=== PATIENT | female | born 1970 | race American Indian/Alaskan Native ===

== ENCOUNTER 2018-04-21 13:54 | Emergency (ER) | payer OTHER ==
[2018-04-21] MEDS ORDERED: CATAPRES PO ONE (16:49)
[2018-04-21] MEDS ORDERED: TORADOL IM ONE (16:49)
--- NOTE | 2018-04-21 16:54 | Emergency Department Report ---
ED General Adult HPI - General Chief complaint: Headache Stated complaint: HEADACHE AND NAUSEA FOR 3 DAYS Time Seen by Provider: 04/21/18 16:44 Source: patient Mode of arrival: Ambulatory Limitations: No Limitations - History of Present Illness Initial comments: Patient is a 47-year-old black female said some headache with some mild photophobia and mild nausea for the past 3 days. Patient states she has a history of hypertension and taken her blood pressure medicines as prescribed however blood pressure has been running high. Patient patient takes metoprolol losartan amlodipine. Patient denies any chest pain shortness of breath fevers chills at this time. Patient denies any focal neurological deficit. - Related Data Previous Rx's Medication Instructions Recorded Last Taken Type Amlodipine Besylate [Norvasc] 10 mg PO DAILY #30 tablet 04/21/18 Unknown Rx Losartan [Cozaar] 25 mg PO QDAY #30 tablet 04/21/18 Unknown Rx Metoprolol [Lopressor TAB] 50 mg PO BID #60 tablet 04/21/18 Unknown Rx traMADol [Ultram] 50 mg PO Q6HR PRN #10 tablet 04/21/18 Unknown Rx Allergies Allergy/AdvReac Type Severity Reaction Status Date / Time No Known Allergies Allergy Verified 04/21/18 14:13 ED Review of Systems ROS: Stated complaint: HEADACHE AND NAUSEA FOR 3 DAYS Other details as noted in HPI Comment: All other systems reviewed and negative ED Past Medical Hx - Past Medical History Previous Medical History?: Yes Hx Hypertension: Yes - Surgical History Past Surgical History?: Yes Additional Surgical History: right ovary - Social History Smoking Status: Current Every Day Smoker Substance Use Type: None - Medications Home Medications: Home Medications Medication Instructions Recorded Confirmed Last Taken Type Amlodipine Besylate [Norvasc] 10 mg PO DAILY #30 tablet 04/21/18 Unknown Rx Losartan [Cozaar] 25 mg PO QDAY #30 tablet 04/21/18 Unknown Rx Metoprolol [Lopressor TAB] 50 mg PO BID #60 tablet 04/21/18 Unknown Rx traMADol [Ultram] 50 mg PO Q6HR PRN #10 tablet 04/21/18 Unknown Rx ED Physical Exam - General Limitations: No Limitations General appearance: alert, in no apparent distress - Head Head exam: Present: atraumatic, normocephalic - Eye Eye exam: Present: normal appearance - ENT ENT exam: Present: mucous membranes moist - Neck Neck exam: Present: normal inspection - Respiratory Respiratory exam: Present: normal lung sounds bilaterally. Absent: respiratory distress, wheezes, rales, rhonchi - Cardiovascular Cardiovascular Exam: Present: regular rate, normal rhythm. Absent: systolic murmur, diastolic murmur, rubs, gallop - GI/Abdominal GI/Abdominal exam: Present: soft, normal bowel sounds. Absent: distended, tenderness, guarding, rebound - Extremities Exam Extremities exam: Present: normal inspection - Back Exam Back exam: Present: normal inspection - Neurological Exam Neurological exam: Present: alert, oriented X3, CN II-XII intact, normal gait. Absent: motor sensory deficit - Psychiatric Psychiatric exam: Present: normal affect, normal mood - Skin Skin exam: Present: warm, dry, intact, normal color. Absent: rash ED Course Vital Signs 04/21/18 14:11 Temperature 98.3 F Pulse Rate 95 H Respiratory 18 Rate Blood Pressure 196/93 O2 Sat by Pulse 98 Oximetry ED Medical Decision Making - Medical Decision Making Patient is on 5 mg of amlodipine this be increased to 10 mg and the patient's losartan will be increased from 12.5 to 25 mg. Critical care attestation.: If time is entered above; I have spent that time in minutes in the direct care of this critically ill patient, excluding procedure time. ED Disposition Clinical Impression: Hypertensive urgency Disposition: DC-01 TO HOME OR SELFCARE Is pt being admited?: No Does the pt Need Aspirin: No Condition: Stable Instructions: Hypertension (ED) Referrals: SONNY ALONSO MD [Staff Physician] - 3-5 Days
[2018-04-21 17:32] VITALS: BP 182/78
== END 2018-04-21 17:31 | disposition home or self-care (01) ==
LOC: ED 13:54
DX: I10 Essential (primary) hypertension (principal); F17.200 Nicotine dependence, unspecified, uncomplicated
CPT/HCPCS: 96372; 99282; J1885

== ENCOUNTER 2018-05-29 16:50 | Emergency (ER) | payer OTHER ==
[2018-05-29 17:16] VITALS: BP 210/100
[2018-05-29] MEDS ORDERED: DUONEB *Not for PRN Use IH ONE (17:17)
--- NOTE | 2018-05-29 18:56 | XRay Report ---
FINAL REPORT PROCEDURE: XR CHEST ROUTINE 2V TECHNIQUE: PA and lateral chest radiographs were obtained. CPT 76976 HISTORY: chest congestion bx tx COMPARISON: No prior studies are available for comparison. FINDINGS: Heart: Normal. Mediastinum/Vessels: Normal. Lungs/Pleural space: No infiltrate, effusion, or pneumothorax. Bony thorax: No acute osseous abnormality. Other: IMPRESSION: No pulmonary infiltrates.
[2018-05-29] MEDS ORDERED: DECADRON IM ONE (19:50)
[2018-05-29] MEDS ORDERED: MOTRIN PO ONE (19:50)
[2018-05-29] MEDS ORDERED: PROVENTIL IH ONE (19:50)
--- NOTE | 2018-05-29 19:56 | Emergency Department Report ---
Upper Respiratory HPI - HPI Chief Complaint: Upper Respiratory Infection Stated Complaint: SEVERE COLD/CHEST PAIN/WHEEZING/HEADACHE Time Seen by Provider: 05/29/18 19:49 Duration: 5 Days URI Symptoms: Rhinorrhea: Yes, Sore Throat: Yes, Ear Pain: No, Cough: Yes, Shortness of Breath: Yes, Sick Contacts: Yes, Unable to Take Fluids: No, Urine Output Abnormal: No, Listless Behavior: No - Home Meds and Allergies Home Medications: Previous Rx's Medication Instructions Recorded Last Taken Type Amlodipine Besylate [Norvasc] 10 mg PO DAILY #30 tablet 04/21/18 Unknown Rx Losartan [Cozaar] 25 mg PO QDAY #30 tablet 04/21/18 Unknown Rx Metoprolol [Lopressor TAB] 50 mg PO BID #60 tablet 04/21/18 Unknown Rx traMADol [Ultram] 50 mg PO Q6HR PRN #10 tablet 04/21/18 Unknown Rx ALBUTEROL Inhaler(NF) [VENTOLIN 1 puff IH Q4-6H PRN #1 inha 05/29/18 Unknown Rx Inhaler(NF)] Azithromycin 250 mg PO DAILY #6 tablet 05/29/18 Unknown Rx Codeine Phosphate/Guaifenesin 5 ml PO TID PRN #120 ml 05/29/18 Unknown Rx [Guaifenesin-Codeine Syrup] Dexamethasone [Decadron] 4 mg PO Q12H #4 tablet 05/29/18 Unknown Rx Ibuprofen 800 mg PO TID PRN #30 tablet 05/29/18 Unknown Rx Allergies/Adverse Reactions: Allergies Allergy/AdvReac Type Severity Reaction Status Date / Time No Known Allergies Allergy Verified 04/21/18 14:13 ED Review of Systems ROS: Stated complaint: SEVERE COLD/CHEST PAIN/WHEEZING/HEADACHE Other details as noted in HPI Constitutional: fever Eyes: denies: eye pain, eye discharge, vision change ENT: throat pain, congestion Respiratory: cough, shortness of breath, wheezing Cardiovascular: denies: chest pain, palpitations Endocrine: no symptoms reported Gastrointestinal: denies: abdominal pain, nausea, diarrhea Genitourinary: as per HPI Musculoskeletal: denies: back pain, joint swelling, arthralgia Skin: denies: rash, lesions Neurological: denies: headache, weakness, paresthesias Psychiatric: denies: anxiety, depression Hematological/Lymphatic: denies: easy bleeding, easy bruising ED Past Medical Hx - Past Medical History Previous Medical History?: Yes Hx Hypertension: Yes - Surgical History Past Surgical History?: Yes Additional Surgical History: right ovary - Social History Smoking Status: Current Every Day Smoker Substance Use Type: None - Medications Home Medications: Home Medications Medication Instructions Recorded Confirmed Last Taken Type Amlodipine Besylate [Norvasc] 10 mg PO DAILY #30 tablet 04/21/18 Unknown Rx Losartan [Cozaar] 25 mg PO QDAY #30 tablet 04/21/18 Unknown Rx Metoprolol [Lopressor TAB] 50 mg PO BID #60 tablet 04/21/18 Unknown Rx traMADol [Ultram] 50 mg PO Q6HR PRN #10 tablet 04/21/18 Unknown Rx ALBUTEROL Inhaler(NF) [VENTOLIN 1 puff IH Q4-6H PRN #1 inha 05/29/18 Unknown Rx Inhaler(NF)] Azithromycin 250 mg PO DAILY #6 tablet 05/29/18 Unknown Rx Codeine Phosphate/Guaifenesin 5 ml PO TID PRN #120 ml 05/29/18 Unknown Rx [Guaifenesin-Codeine Syrup] Dexamethasone [Decadron] 4 mg PO Q12H #4 tablet 05/29/18 Unknown Rx Ibuprofen 800 mg PO TID PRN #30 tablet 05/29/18 Unknown Rx ED Bronchiolitis Physical Exam - Exam General: Vital signs noted. No distress. Alert and acting appropriately. HEENT: Yes Pharyngeal Erythema, Yes Rhinorrhea, No Conjuctival Injection, No Dry Mucous Membranes Ear: Neither TM Bulge, Neither TM Erythema, Neither EAC Discharge Neck: No Adenopathy, No Rigidity Lungs: Yes Good Air Exchange, Yes Wheezes, Yes Cough, No Clear Lung Sounds, No Stridor, No Nasal Flaring, No Retractions, No Use of Accessory Muscles Heart: Yes Regular, No Murmur Abdomen: Yes Normal Bowel Sounds, No Tenderness, No Peritoneal Signs Skin: No Rash, No Eczema Neurologic: Alert and oriented, no deficits. Musculoskeletal: Unremarkable. ED Bronchiolitis Tests - Testing Testing: CXR: Normal/Negative Treatments - Treaments Treatment: Improved Albuterol (decadron) ED Physical Exam - General Limitations: No Limitations General appearance: alert, in no apparent distress - Head Head exam: Present: atraumatic, normocephalic - Eye Eye exam: Present: normal appearance - ENT ENT exam: Present: normal exam, mucous membranes moist, TM's normal bilaterally , normal external ear exam - Neck Neck exam: Present: normal inspection, full ROM. Absent: tenderness, lymphadenopathy, thyromegaly - Respiratory Respiratory exam: Present: wheezes, chest wall tenderness. Absent: stridor - Cardiovascular Cardiovascular Exam: Present: regular rate, normal rhythm, normal heart sounds. Absent: systolic murmur, diastolic murmur, rubs, gallop - GI/Abdominal GI/Abdominal exam: Present: soft, normal bowel sounds. Absent: tenderness, bruit, hernia - Rectal Rectal exam: Present: deferred - Extremities Exam Extremities exam: Present: normal inspection - Back Exam Back exam: Present: normal inspection, full ROM. Absent: tenderness, CVA tenderness (R), CVA tenderness (L), muscle spasm, paraspinal tenderness, vertebral tenderness, rash noted - Neurological Exam Neurological exam: Present: alert, oriented X3, normal gait - Psychiatric Psychiatric exam: Present: normal affect, normal mood - Skin Skin exam: Present: warm, dry, intact, normal color. Absent: rash ED Course Vital Signs 05/29/18 17:13 Temperature 98.9 F Pulse Rate 95 H Respiratory 16 Rate Blood Pressure 210/100 O2 Sat by Pulse 94 Oximetry - Reevaluation(s) Reevaluation #1: Patient advises breathing is improved when ambulating ED if no increased shortness of breath no increase in wheezing DC to home in stable condition treated for bronchitis 05/29/18 20:16 ED Medical Decision Making - Radiology Data Radiology results: report reviewed, image reviewed No infiltrates no opacities - Medical Decision Making Breathing improved patient request and DC'd home patient ambulated in ED without increased shortness of breath wheezing is decreased plan DC to home in stable condition at this time due to all inhaler prednisone CPAP follow up with PCP in 2-3 days at [facility] patient verbalizes agreement and understanding with signs DC'd to home in stable condition at this time patient has hypertension medicines including amlodipine losartan and metoprolol advised to take them upon arrival to home patient verbalizes agreement same is currently no headache no dizziness no lightheadedness and no chest pain no nausea vomiting patient is a and O 3 and rheumatoid gait is steady Critical care attestation.: If time is entered above; I have spent that time in minutes in the direct care of this critically ill patient, excluding procedure time. ED Disposition Clinical Impression: Bronchitis URI (upper respiratory infection) Qualifiers: URI type: unspecified viral URI Qualified Code(s): J06.9 - Acute upper respiratory infection, unspecified Disposition: DC- TO HOME OR SELFCARE Is pt being admited?: No Does the pt Need Aspirin: No Condition: Good Instructions: Acute Bronchitis (ED) Prescriptions: ALBUTEROL Inhaler(NF) [VENTOLIN Inhaler(NF)] 1 puff IH Q4-6H PRN #1 inha PRN Reason: sob wheezing Azithromycin 250 mg PO DAILY #6 tablet Codeine Phosphate/Guaifenesin [Guaifenesin-Codeine Syrup] 5 ml PO TID PRN #120 ml PRN Reason: cough Dexamethasone [Decadron] 4 mg PO Q12H #4 tablet Ibuprofen 800 mg PO TID PRN #30 tablet PRN Reason: pain fever Referrals: PRIMARY CARE, [Primary Care Provider] - 3-5 Days [facility] [Outside] - 3-5 Days Forms: Work/School Release Form(ED) Time of Disposition: 21:06
== END 2018-05-29 21:21 | disposition home or self-care (01) ==
LOC: ED 16:50
DX: J40 Bronchitis, not specified as acute or chronic (principal); J06.9 Acute upper respiratory infection, unspecified; I10 Essential (primary) hypertension; F17.200 Nicotine dependence, unspecified, uncomplicated
CPT/HCPCS: 71046; 93005; 93010; 96372; 99283; J1100

== ENCOUNTER 2018-06-12 13:16 | Emergency (ER) | payer OTHER ==
[2018-06-12] MEDS ORDERED: MOTRIN PO ONE (18:04)
[2018-06-12] MEDS ORDERED: XYLOCAINE 1% 20 mL INFILTRATI ONE (18:04)
[2018-06-12] MEDS ORDERED: BOOSTRIX IM ONE (18:04)
--- NOTE | 2018-06-12 18:25 | Emergency Department Report ---
ED Laceration HPI - HPI Chief Complaint: Wound/Laceration Stated Complaint: CUT HAND W/ [employer] Time Seen by Provider: 06/12/18 17:31 Occurred When: Today Location: Upper Extremity Severity: mild Tetanus Status: Not up to Date Laceration Symptoms: Yes Pain, No Foreign Body Sensation, No Numbness, No Weakness Other History: This is a 47-year-old female nontoxic, well nourished in appearance, no acute signs of distress presents to the ED with c/o of left hand laceration that occurred today. 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 Patient denies any other trauma. Patient denies any decreased range of motion, sensation, fever, chills, nausea, vomiting, chest pain, shots of breath, headache or stiff neck. Patient denies any allergies or significant past medical history besides HTN. She is not up-to-date with tetanus. ED Review of Systems ROS: Stated complaint: CUT HAND W/ [employer] Other details as noted in HPI Constitutional: denies: chills, fever Eyes: denies: eye pain, eye discharge, vision change ENT: denies: ear pain, throat pain Respiratory: denies: cough, shortness of breath, wheezing Cardiovascular: denies: chest pain, palpitations Endocrine: no symptoms reported Gastrointestinal: denies: abdominal pain, nausea, diarrhea Genitourinary: denies: urgency, dysuria, discharge Musculoskeletal: denies: back pain, joint swelling, arthralgia Skin: denies: rash, lesions Neurological: denies: headache, weakness, paresthesias Psychiatric: denies: anxiety, depression Hematological/Lymphatic: denies: easy bleeding, easy bruising ED Past Medical Hx - Past Medical History Previous Medical History?: Yes Hx Hypertension: Yes - Surgical History Past Surgical History?: Yes Additional Surgical History: right ovary - Social History Smoking Status: Current Every Day Smoker Substance Use Type: None - Medications Home Medications: Home Medications Medication Instructions Recorded Confirmed Last Taken Type Amlodipine Besylate [Norvasc] 10 mg PO DAILY #30 tablet 04/21/18 Unknown Rx Losartan [Cozaar] 25 mg PO QDAY #30 tablet 04/21/18 Unknown Rx Metoprolol [Lopressor TAB] 50 mg PO BID #60 tablet 04/21/18 Unknown Rx traMADol [Ultram] 50 mg PO Q6HR PRN #10 tablet 04/21/18 Unknown Rx ALBUTEROL Inhaler(NF) [VENTOLIN 1 puff IH Q4-6H PRN #1 inha 05/29/18 Unknown Rx Inhaler(NF)] Azithromycin 250 mg PO DAILY #6 tablet 05/29/18 Unknown Rx Codeine Phosphate/Guaifenesin 5 ml PO TID PRN #120 ml 05/29/18 Unknown Rx [Guaifenesin-Codeine Syrup] Dexamethasone [Decadron] 4 mg PO Q12H #4 tablet 05/29/18 Unknown Rx Ibuprofen 800 mg PO TID PRN #30 tablet 05/29/18 Unknown Rx Acetaminophen/Codeine [Tylenol 1 tab PO Q6H PRN #12 tab 06/12/18 Unknown Rx /Codeine # 3 tab] Sulfamethoxazole/Trimethoprim 1 each PO BID #14 tablet 06/12/18 Unknown Rx [Bactrim DS TAB] Laceration Physical Exam - Exam General: Vital signs noted. No distress. Alert and acting appropriately. Wound Length (cm): 2 Laceration Location: Upper Extremity Laceration Exam: Yes Normal Distal CMS, No Foreign Body, No Exposed Tendon, Vessel, or Nerve, No Tendon Injury ED Course Vital Signs 06/12/18 13:34 Temperature 99.2 F Pulse Rate 105 H Respiratory 18 Rate Blood Pressure 156/81 O2 Sat by Pulse 96 Oximetry - Reevaluation(s) Reevaluation #1: 06/12/18 18:24 Patient is speaking in full sentences with no signs of distress noted. - Laceration /Wound Repair Left Hand Wound Location: upper extremity Wound Length (cm): 2 Wound's Depth, Shape: superficial Wound Explored: clean Irrigated w/ Saline (ccs): 40 Betadine Prep?: Yes Anesthesia: 1% Lidocaine (6) Volume Anesthetic (ccs): 6 Wound Debrided: minimal Wound Repaired With: sutures Suture Size/Type: 4:0, nylon Number of Sutures: 6 Layer Closure?: No Sterile Dressing Applied?: Yes Progress: Under sterile field, I used Betadine to clean the area. I then used 40 mL of normal saline to flush the area. I then used 1% lidocaine plain and injected 6 mL to the wound. I then used a 4-0 Ethilon to suture the laceration. Number of stitches 6. I then applied a sterile 4 x 4 with tape. Minimal bleeding noted but is under control. Patient tolerated procedure well with no signs of distress. ED Medical Decision Making - Medical Decision Making This is a 47-year-old female that presents with laceration. Patient is stable and was examined by me. The laceration suturing has been performed and has been performed and patient tolerated well. A sterile dressing has been applied. Patient was educated on proper wound care. Patient is discharged with Bactrim and Tylenol with codeine and was instructed not to operate any machinery while taking Tylenol with codeine due to drowsiness. Patient was instructed to return in 10 days for suture removal. Patient was instructed to refer to Follow-up with a primary care doctor in 3-5 days or if symptoms worsen and continue return to emergency room as soon as possible. At time of discharge , the patient does not seem toxic or ill in appearance. No acute signs of distress noted. Patient agrees to discharge treatment plan of care. No further questions noted by the patient. Critical care attestation.: If time is entered above; I have spent that time in minutes in the direct care of this critically ill patient, excluding procedure time. ED Disposition Clinical Impression: Laceration Disposition: DC-01 TO HOME OR SELFCARE Is pt being admited?: No Does the pt Need Aspirin: No Condition: Stable Instructions: Sulfamethoxazole/Trimethoprim (By mouth), Acetaminophen/Codeine ( By mouth), Suture Care (ED), Laceration (ED) Additional Instructions: Follow-up with a primary care doctor in 3-5 days or if symptoms worsen and continue return to emergency room as soon as possible. Return in 10 days for suture removal. Do not operate any machinery while taking Tylenol with codeine as this may cause drowsiness. Prescriptions: Acetaminophen/Codeine [Tylenol /Codeine # 3 tab] 1 tab PO Q6H PRN #12 tab PRN Reason: Pain , Severe (7-10) Sulfamethoxazole/Trimethoprim [Bactrim DS TAB] 1 each PO BID #14 tablet Referrals: PRIMARY CAREMD [Primary Care Provider] - 3-5 Days SURAJ NAZARIO MD [Staff Physician] - 3-5 Days [facility] [Outside] - 3-5 Days [facility] [Outside] - 3-5 Days Forms: Work/School Release Form(ED)
[2018-06-12 19:47] VITALS: BP 122/68
== END 2018-06-12 19:45 | disposition home or self-care (01) ==
LOC: ED 13:16
DX: S61.412A Laceration without foreign body of left hand, initial encounter (principal); I10 Essential (primary) hypertension; F17.200 Nicotine dependence, unspecified, uncomplicated; W26.8XXA Contact with other sharp object(s), not elsewhere classified, initial encounter; Y93.89 Activity, other specified; Y92.89 Other specified places as the place of occurrence of the external cause; Y99.8 Other external cause status
CPT/HCPCS: 90471; 90715; 99282

== ENCOUNTER 2018-10-12 12:33 | Emergency (ER) | payer OTHER ==
[2018-10-12 12:43] VITALS: BP 175/86
[2018-10-12] MEDS ORDERED: IBUPROFEN PO ONE (12:56)
--- NOTE | 2018-10-12 12:57 | Emergency Department Report ---
ED Upper Extremity Inj HPI - General Chief Complaint: Extremity Injury, Upper Stated Complaint: LEFT WRIST INJURY Time Seen by Provider: 10/12/18 12:52 Source: patient Mode of arrival: Ambulatory Limitations: No Limitations - History of Present Illness Initial Comments: This is a 48-year-old female nontoxic, well nourished in appearance, no acute signs of distress presents to the ED with c/o of left wrist pain 2 days. Patient stated that she went out 2 days ago for her birthday and has been drinking and does not know how she injured it. Patient denies any other trauma. Patient denies any numbness, tingling, fever, chills, nausea, vomiting, chest pain, shortness of breath, headache, stiff neck. Patient denies any joint swelling or joint redness. Patient has some decreased range of motion due to pain. Patient denies any allergies or significant past medical history. MD Complaint: Injury to:: left, wrist -: days(s) (2) Other Extremity Injury: Wrist: Left Other Injuries: none Place: outdoors Severity scale (0 -10): 8 Improves With: immobilization Worsens With: movement of extremity Associated Symptoms: denies other symptoms. denies: weakness, numbness, neck pain, suspects foreign body, nausea/vomiting, heard/felt popping sensat - Related Data Previous Rx's Medication Instructions Recorded Last Taken Type Amlodipine Besylate [Norvasc] 10 mg PO DAILY #30 tablet 04/21/18 Unknown Rx Losartan [Cozaar] 25 mg PO QDAY #30 tablet 04/21/18 Unknown Rx Metoprolol [Lopressor TAB] 50 mg PO BID #60 tablet 04/21/18 Unknown Rx traMADol [Ultram] 50 mg PO Q6HR PRN #10 tablet 04/21/18 Unknown Rx ALBUTEROL Inhaler(NF) [VENTOLIN 1 puff IH Q4-6H PRN #1 inha 05/29/18 Unknown Rx Inhaler(NF)] Azithromycin 250 mg PO DAILY #6 tablet 05/29/18 Unknown Rx Codeine Phosphate/Guaifenesin 5 ml PO TID PRN #120 ml 05/29/18 Unknown Rx [Guaifenesin-Codeine Syrup] Dexamethasone [Decadron] 4 mg PO Q12H #4 tablet 05/29/18 Unknown Rx Ibuprofen 800 mg PO TID PRN #30 tablet 05/29/18 Unknown Rx Acetaminophen/Codeine [Tylenol 1 tab PO Q6H PRN #12 tab 06/12/18 Unknown Rx /Codeine # 3 tab] Sulfamethoxazole/Trimethoprim 1 each PO BID #14 tablet 06/12/18 Unknown Rx [Bactrim DS TAB] Ciprofloxacin HCl [Ciprofloxacin 500 mg PO Q12H 10 Days #20 tab 09/06/18 Unknown Rx TAB] Dicyclomine [Bentyl] 40 mg PO Q8H 3 Days #9 tablet 09/06/18 Unknown Rx Promethazine [Phenergan TAB] 25 mg PO Q6HR PRN #12 tab 09/06/18 Unknown Rx Nitrofurantoin Macrocrystal 100 mg PO BID #20 capsule 09/20/18 Unknown Rx [Nitrofurantoin] Ondansetron [Zofran Odt] 4 mg PO Q8HR PRN #20 tab.rapdis 09/20/18 Unknown Rx Pantoprazole Sodium [Protonix] 40 mg PO DAILY #30 granpkt. 09/20/18 Unknown Rx Ibuprofen [Motrin] 600 mg PO Q8H PRN #20 tablet 10/12/18 Unknown Rx Allergies Allergy/AdvReac Type Severity Reaction Status Date / Time No Known Allergies Allergy Verified 04/21/18 14:13 ED Review of Systems ROS: Stated complaint: LEFT WRIST INJURY Other details as noted in HPI Constitutional: denies: chills, fever Eyes: denies: eye pain, eye discharge, vision change ENT: denies: ear pain, throat pain Respiratory: denies: cough, shortness of breath, wheezing Cardiovascular: denies: chest pain, palpitations Endocrine: no symptoms reported Gastrointestinal: denies: abdominal pain, nausea, diarrhea Genitourinary: denies: urgency, dysuria, discharge Musculoskeletal: arthralgia. denies: back pain, joint swelling Skin: denies: rash, lesions Neurological: denies: headache, weakness, paresthesias Psychiatric: denies: anxiety, depression Hematological/Lymphatic: denies: easy bleeding, easy bruising ED Past Medical Hx - Past Medical History Hx Hypertension: Yes - Surgical History Additional Surgical History: right ovary - Social History Smoking Status: Current Every Day Smoker Substance Use Type: Alcohol - Medications Home Medications: Home Medications Medication Instructions Recorded Confirmed Last Taken Type Amlodipine Besylate [Norvasc] 10 mg PO DAILY #30 tablet 04/21/18 Unknown Rx Losartan [Cozaar] 25 mg PO QDAY #30 tablet 04/21/18 Unknown Rx Metoprolol [Lopressor TAB] 50 mg PO BID #60 tablet 04/21/18 Unknown Rx traMADol [Ultram] 50 mg PO Q6HR PRN #10 tablet 04/21/18 Unknown Rx ALBUTEROL Inhaler(NF) [VENTOLIN 1 puff IH Q4-6H PRN #1 inha 05/29/18 Unknown Rx Inhaler(NF)] Azithromycin 250 mg PO DAILY #6 tablet 05/29/18 Unknown Rx Codeine Phosphate/Guaifenesin 5 ml PO TID PRN #120 ml 05/29/18 Unknown Rx [Guaifenesin-Codeine Syrup] Dexamethasone [Decadron] 4 mg PO Q12H #4 tablet 05/29/18 Unknown Rx Ibuprofen 800 mg PO TID PRN #30 tablet 05/29/18 Unknown Rx Acetaminophen/Codeine [Tylenol 1 tab PO Q6H PRN #12 tab 06/12/18 Unknown Rx /Codeine # 3 tab] Sulfamethoxazole/Trimethoprim 1 each PO BID #14 tablet 06/12/18 Unknown Rx [Bactrim DS TAB] Ciprofloxacin HCl [Ciprofloxacin 500 mg PO Q12H 10 Days #20 tab 09/06/18 Unknown Rx TAB] Dicyclomine [Bentyl] 40 mg PO Q8H 3 Days #9 tablet 09/06/18 Unknown Rx Promethazine [Phenergan TAB] 25 mg PO Q6HR PRN #12 tab 09/06/18 Unknown Rx Nitrofurantoin Macrocrystal 100 mg PO BID #20 capsule 09/20/18 Unknown Rx [Nitrofurantoin] Ondansetron [Zofran Odt] 4 mg PO Q8HR PRN #20 tab.rapdis 09/20/18 Unknown Rx Pantoprazole Sodium [Protonix] 40 mg PO DAILY #30 09/20/18 Unknown Rx Ibuprofen [Motrin] 600 mg PO Q8H PRN #20 tablet 10/12/18 Unknown Rx ED Physical Exam - General Limitations: No Limitations General appearance: alert, in no apparent distress - Head Head exam: Present: atraumatic, normocephalic - Eye Eye exam: Present: normal appearance - Neck Neck exam: Present: normal inspection, full ROM - Extremities Exam Extremities exam: Present: normal inspection, full ROM, tenderness, normal capillary refill. Absent: joint swelling - Expanded Upper Extremity Exam Left General: Present: normal inspection Shoulder Exam: Present: normal inspection, full ROM. Absent: tenderness Upper Arm exam: Present: normal inspection, full ROM. Absent: tenderness Elbow exam: Present: normal inspection, full ROM. Absent: tenderness Forearm Wrist exam: Present: normal inspection, full ROM. Absent: tenderness, swelling, abrasion, laceration, ecchymosis, deformity, crepidus, dislocation, erythema, tenderness over anatomical snuff box, pain with axial thumb loading Hand Wrist exam: Present: normal inspection, full ROM, tenderness. Absent: swe lling, abrasion, laceration, ecchymosis, deformity, crepidus, dislocation, erythema, amputation, nail avulsion, subungual hematoma Vascular: Present: vascular compromise, normal capillary refill - Back Exam Back exam: Present: normal inspection, full ROM - Neurological Exam Neurological exam: Present: alert, oriented X3 - Psychiatric Psychiatric exam: Present: normal affect, normal mood - Skin Skin exam: Present: warm, dry, intact, normal color. Absent: rash ED Course Vital Signs 10/12/18 12:38 Temperature 98.6 F Pulse Rate 89 Respiratory 18 Rate Blood Pressure 175/86 O2 Sat by Pulse 100 Oximetry - Reevaluation(s) Reevaluation #1: 10/12/18 13:26 Patient is speaking in full sentences with no signs of distress noted. ED Medical Decision Making - Medical Decision Making This is a 48-year-old female that presents with left wrist strain. Patient is stable and was examined by me. I referred patient to an orthopedic doctor for further evaluation for possible MRI. X-ray has been obtained and dictated by the radiologist. Patient is notified of the x-ray report with noted by the patient. Patient does have normal ROM with some pain and no joint swelling. No ecchymosis. no joint redness or swelling. Not warm to touch. No signs of cellulites present. Patient received a wrist immobilize. Patient was instructed to RICE therapy. Patient received Motrin for pain. Patient is discharged with Motrin. At time of discharge, the patient does not seem toxic or ill in appearance. No acute signs of distress noted. Patient agrees to discharge treatment plan of care. No further questions noted by the patient. Critical care attestation.: If time is entered above; I have spent that time in minutes in the direct care of this critically ill patient, excluding procedure time. ED Disposition Clinical Impression: Strain of left wrist Qualifiers: Encounter type: initial encounter Qualified Code(s): S66.912A - Strain of unspecified muscle, fascia and tendon at wrist and hand level, left hand, initial encounter Disposition: TO HOME OR SELFCARE Is pt being admited?: No Does the pt Need Aspirin: No Condition: Stable Instructions: Wrist Injury (ED), RICE Therapy (ED) Additional Instructions: Follow-up with a orthopedic doctor in 3-5 days or if symptoms worsen and continue return to emergency room as soon as possible. Prescriptions: Ibuprofen [Motrin] 600 mg PO Q8H PRN #20 tablet PRN Reason: Pain Referrals: PRIMARY CAREMD [Referring] - 3-5 Days ROMAN CHAVARRIA MD [Staff Physician] - 3-5 Days [facility] [Outside] - 3-5 Days Forms: Work/School Release Form(ED)
--- NOTE | 2018-10-12 14:12 | XRay Report ---
FINAL REPORT EXAM: XR WRIST 3+V LT HISTORY: wrist pain COMPARISON: None. TECHNIQUE: Three views of the left wrist FINDINGS: There is normal alignment without acute fracture or dislocation. The joint spaces are preserved. The overlying soft tissues are intact. IMPRESSION: No acute bony abnormality of the left wrist.
== END 2018-10-12 14:51 | disposition home or self-care (01) ==
LOC: ED 12:33
DX: S66.912A Strain of unspecified muscle, fascia and tendon at wrist and hand level, left hand, initial encounter (principal); I10 Essential (primary) hypertension; F17.200 Nicotine dependence, unspecified, uncomplicated; X58.XXXA Exposure to other specified factors, initial encounter; Y93.89 Activity, other specified; Y92.488 Other paved roadways as the place of occurrence of the external cause; Y99.8 Other external cause status

== ENCOUNTER 2018-12-01 09:53 | Emergency (ER) | payer OTHER ==
[2018-12-01 11:12] LABS: Hematocrit 33.6 % (30.3-42.9); Hemoglobin 10.6 gm/dl (10.1-14.3); Mean Corpuscular HGB Conc 32 % (30-34); Red Blood Count 5.77 M/mm3 (3.65-5.03); Red Cell Distribution Width 19.9 % (13.2-15.2)
--- NOTE | 2018-12-01 11:13 | XRay Report ---
AP CHEST: HISTORY: Hypertension AP view of the chest demonstrates a normal mediastinal and cardiac contour with clear lungs and normal bony and soft tissue structures. IMPRESSION: Unremarkable AP chest.
[2018-12-01 11:15] LABS: Mean Corpuscular Volume 58 fl (79-97)
[2018-12-01] MEDS ORDERED: NORMODYNE IV ONE ×3 (11:20→12:59)
[2018-12-01 11:26] LABS: INR 0.86 (0.87-1.13)
[2018-12-01 11:27] LABS: Partial Thromboplastin Time 31.5 Sec. (24.2-36.6)
[2018-12-01 11:32] LABS: Creatine Kinase MB 1.9 ng/mL (0.0-4.0)
[2018-12-01 11:34] LABS: Alanine Aminotransferase 12 units/L (7-56); BUN/Creatinine Ratio 20; Blood Urea Nitrogen 14 mg/dL (7-17); Calcium 8.7 mg/dL (8.4-10.2); Hemolysis Index 16
[2018-12-01 11:35] LABS: Bilirubin,Direct < 0.2 mg/dL (0-0.2)
[2018-12-01] MEDS ORDERED: ULTRAM PO ONE (11:47)
[2018-12-01] MEDS ORDERED: TESSALON PERLES PO ONE (11:47)
--- NOTE | 2018-12-01 12:01 | Emergency Department Report ---
ED General Adult HPI - General Chief complaint: Upper Respiratory Infection Stated complaint: FLU LIKE Time Seen by Provider: 12/01/18 10:34 Source: patient Mode of arrival: Ambulatory Limitations: No Limitations - History of Present Illness Initial comments: She is a 48-year-old female with history of hypertension and asthma. She does have a home neb machine. She states that she's been having a nonproductive cough and some difficulty in breathing periodically for the last 1 week. Feels like she had a cough. She complains of myalgias and occasional right ear pain. Said some sore throat. She is not complaining of chest pain or difficulty in br eathing at rest now. She states that she took her blood pressure medicine yesterday but not today. She has no history of venous thromboembolism or known cardiovascular disease. -: Gradual, week(s) Location: mouth (sore throat), upper extremity (body aches as above described), lower extremity Quality: aching Consistency: intermittent Improves with: none Worsens with: none Associated Symptoms: denies other symptoms. denies: fever/chills - Related Data Previous Rx's Medication Instructions Recorded Last Taken Type Amlodipine Besylate [Norvasc] 10 mg PO DAILY #30 tablet 04/21/18 Unknown Rx Losartan [Cozaar] 25 mg PO QDAY #30 tablet 04/21/18 Unknown Rx Metoprolol [Lopressor TAB] 50 mg PO BID #60 tablet 04/21/18 Unknown Rx ALBUTEROL Inhaler(NF) [VENTOLIN 1 puff IH Q4-6H PRN #1 inha 05/29/18 Unknown Rx Inhaler(NF)] Codeine Phosphate/Guaifenesin 5 ml PO TID PRN #120 ml 05/29/18 Unknown Rx [Guaifenesin-Codeine Syrup] Dexamethasone [Decadron] 4 mg PO Q12H #4 tablet 05/29/18 Unknown Rx Ibuprofen 800 mg PO TID PRN #30 tablet 05/29/18 Unknown Rx Acetaminophen/Codeine [Tylenol 1 tab PO Q6H PRN #12 tab 06/12/18 Unknown Rx /Codeine # 3 tab] Sulfamethoxazole/Trimethoprim 1 each PO BID #14 tablet 06/12/18 Unknown Rx [Bactrim DS TAB] Ciprofloxacin HCl [Ciprofloxacin 500 mg PO Q12H 10 Days #20 tab 09/06/18 Unknown Rx TAB] Dicyclomine [Bentyl] 40 mg PO Q8H 3 Days #9 tablet 09/06/18 Unknown Rx Promethazine [Phenergan TAB] 25 mg PO Q6HR PRN #12 tab 09/06/18 Unknown Rx Nitrofurantoin Macrocrystal 100 mg PO BID #20 capsule 09/20/18 Unknown Rx [Nitrofurantoin] Ondansetron [Zofran Odt] 4 mg PO Q8HR PRN #20 tab.rapdis 09/20/18 Unknown Rx Pantoprazole Sodium [Protonix] 40 mg PO DAILY #30 granpkt. 09/20/18 Unknown Rx Ibuprofen [Motrin] 600 mg PO Q8H PRN #20 tablet 10/12/18 Unknown Rx Azithromycin 250 mg PO DAILY #6 tablet 12/01/18 Unknown Rx traMADol [Ultram 50 MG tab] 50 mg PO Q6HR PRN #10 tablet 12/01/18 Unknown Rx Allergies Allergy/AdvReac Type Severity Reaction Status Date / Time No Known Allergies Allergy Verified 04/21/18 14:13 ED Review of Systems ROS: Stated complaint: FLU LIKE Other details as noted in HPI Constitutional: denies: chills, fever Eyes: denies: eye pain, eye discharge, vision change ENT: ear pain, throat pain Respiratory: cough, wheezing. denies: shortness of breath Cardiovascular: denies: chest pain, palpitations Endocrine: no symptoms reported Gastrointestinal: denies: abdominal pain, nausea, diarrhea Genitourinary: denies: urgency, dysuria, discharge Musculoskeletal: denies: back pain, joint swelling, arthralgia Skin: denies: rash, lesions Neurological: denies: headache, weakness, paresthesias Psychiatric: denies: anxiety, depression Hematological/Lymphatic: denies: easy bleeding, easy bruising ED Past Medical Hx - Past Medical History Previous Medical History?: Yes Hx Hypertension: Yes - Surgical History Past Surgical History?: Yes Additional Surgical History: right ovary - Social History Smoking Status: Current Every Day Smoker Substance Use Type: Alcohol - Medications Home Medications: Home Medications Medication Instructions Recorded Confirmed Last Taken Type Amlodipine Besylate [Norvasc] 10 mg PO DAILY #30 tablet 04/21/18 Unknown Rx Losartan [Cozaar] 25 mg PO QDAY #30 tablet 04/21/18 Unknown Rx Metoprolol [Lopressor TAB] 50 mg PO BID #60 tablet 04/21/18 Unknown Rx ALBUTEROL Inhaler(NF) [VENTOLIN 1 puff IH Q4-6H PRN #1 inha 05/29/18 Unknown Rx Inhaler(NF)] Codeine Phosphate/Guaifenesin 5 ml PO TID PRN #120 ml 05/29/18 Unknown Rx [Guaifenesin-Codeine Syrup] Dexamethasone [Decadron] 4 mg PO Q12H #4 tablet 05/29/18 Unknown Rx Ibuprofen 800 mg PO TID PRN #30 tablet 05/29/18 Unknown Rx Acetaminophen/Codeine [Tylenol 1 tab PO Q6H PRN #12 tab 06/12/18 Unknown Rx /Codeine # 3 tab] Sulfamethoxazole/Trimethoprim 1 each PO BID #14 tablet 06/12/18 Unknown Rx [Bactrim DS TAB] Ciprofloxacin HCl [Ciprofloxacin 500 mg PO Q12H 10 Days #20 tab 09/06/18 Unknown Rx TAB] Dicyclomine [Bentyl] 40 mg PO Q8H 3 Days #9 tablet 09/06/18 Unknown Rx Promethazine [Phenergan TAB] 25 mg PO Q6HR PRN #12 tab 09/06/18 Unknown Rx Nitrofurantoin Macrocrystal 100 mg PO BID #20 capsule 09/20/18 Unknown Rx [Nitrofurantoin] Ondansetron [Zofran Odt] 4 mg PO Q8HR PRN #20 tab.rapdis 09/20/18 Unknown Rx Pantoprazole Sodium [Protonix] 40 mg PO DAILY #30 granpkt.dr 09/20/18 Unknown Rx Ibuprofen [Motrin] 600 mg PO Q8H PRN #20 tablet 10/12/18 Unknown Rx Azithromycin 250 mg PO DAILY #6 tablet 12/01/18 Unknown Rx traMADol [Ultram 50 MG tab] 50 mg PO Q6HR PRN #10 tablet 12/01/18 Unknown Rx ED Physical Exam - General Limitations: Physical Limitation General appearance: alert, in no apparent distress, obese - Head Head exam: Present: atraumatic, normocephalic - Eye Eye exam: Present: normal appearance. Absent: scleral icterus - ENT ENT exam: Present: normal orophraynx, mucous membranes moist. Absent: TM's normal bilaterally (right TM is dull left TM is translucent) - Neck Neck exam: Present: normal inspection. Absent: tenderness, meningismus - Respiratory Respiratory exam: Present: normal lung sounds bilaterally. Absent: respiratory distress - Cardiovascular Cardiovascular Exam: Present: regular rate, normal rhythm. Absent: systolic murmur, diastolic murmur, rubs, gallop - GI/Abdominal GI/Abdominal exam: Present: soft, normal bowel sounds. Absent: distended, tenderness, guarding, rebound, rigid - Extremities Exam Extremities exam: Present: normal inspection, normal capillary refill. Absent: calf tenderness - Back Exam Back exam: Present: normal inspection. Absent: CVA tenderness (R), CVA tenderness (L) - Neurological Exam Neurological exam: Present: alert, oriented X3, CN II-XII intact. Absent: motor sensory deficit - Psychiatric Psychiatric exam: Present: normal affect, normal mood - Skin Skin exam: Present: warm, dry, intact, normal color. Absent: rash ED Course Vital Signs 12/01/18 12/01/18 12/01/18 10:09 10:47 11:31 Temperature 98.1 F Pulse Rate 81 77 76 Respiratory 18 16 Rate Blood Pressure 197/102 Blood Pressure 245/107 209/90 [Right] O2 Sat by Pulse 99 100 Oximetry 12/01/18 12/01/18 12/01/18 11:42 11:50 11:55 Temperature Pulse Rate Respiratory 20 19 Rate Blood Pressure Blood Pressure 178/80 [Right] O2 Sat by Pulse 100 Oximetry - Reevaluation(s) Reevaluation #1: I emphasized the importance of medical compliance with her antihypertensive regimen with the patient. She states that she has been taking losartan daily at bedtime, amlodipine daily at bedtime and metoprolol twice a day. She did not take her medicine today. The importance of follow-up is being emphasized. I also suggested to her that she really should be taking the amlodipine and the losartan in the morning anyway. Closed follow-up with [facility] medical clinic as required. I hesitate to alter her blood pressure regimen at this point much because she does not know her doses and she is medically noncompliant. 12/01/18 12:59 ED Medical Decision Making - Lab Data Result diagrams: 12/01/18 10:49 12/01/18 10:49 Laboratory Results - last 24 hr 12/01/18 12/01/1812/01/19 10:49 10:49 10:49 WBC 7.1 RBC 5.77 H Hgb 10.6 Hct 33.6 MCV 58 L MCH 18 L MCHC 32 RDW 19.9 H PT 12.2 INR 0.86 L APTT 31.5 Sodium 140 Potassium 4.2 Chloride 108.9 H Carbon Dioxide 22 Anion Gap 13 BUN 14 Creatinine 0.7 Estimated GFR > 60 BUN/Creatinine Ratio 20 Glucose 97 Calcium 8.7 Magnesium 2.00 Total Bilirubin 0.20 Direct Bilirubin < 0.2 Indirect Bilirubin 0.0 AST 12 ALT 12 Alkaline Phosphatase 92 CK-MB (CK-2) 1.9 Troponin T < 0.010 NT-Pro-B Natriuret Pep 103.2 Total Protein 7.2 Albumin 4.0 Albumin/Globulin Ratio 1.3 Laboratory Results - last 24 hr 12/01/18 12/01/18 12/01/18 10:49 10:49 10:49 WBC 7.1 RBC 5.77 H Hgb 10.6 Hct 33.6 MCV 58 L MCH 18 L MCHC 32 RDW 19.9 H Add Manual Diff Complete Total Counted 100 Seg Neuts % (Manual) 68.0 Band Neutrophils % 0 Lymphocytes % (Manual) 24.0 Reactive Lymphs % (Man) 0 Monocytes % (Manual) 5.0 Eosinophils % (Manual) 2.0 Basophils % (Manual) 0 Metamyelocytes % 0 Myelocytes % 1.0 Promyelocytes % 0 Blast Cells % 0 Nucleated RBC % Not Reportable Seg Neutrophils # Man 4.8 Band Neutrophils # 0.0 Lymphocytes # (Manual) 1.7 Abs React Lymphs (Man) 0.0 Monocytes # (Manual) 0.4 Eosinophils # (Manual) 0.1 Basophils # (Manual) 0.0 Metamyelocytes # 0.0 Myelocytes # 0.1 Promyelocytes # 0.0 Blast Cells # 0.0 WBC Morphology Not Reportable Hypersegmented Neuts Not Reportable Hyposegmented Neuts Not Reportable Hypogranular Neuts Not Reportable Smudge Cells Not Reportable Toxic Granulation Not Reportable Toxic Vacuolation Not Reportable Dohle Bodies Not Reportable Pelger-Huet Anomaly Not Reportable Becky Rods Not Reportable Platelet Estimate Consistent w auto Clumped Platelets Not Reportable Plt Clumps, EDTA Not Reportable Large Platelets Few Giant Platelets Not Reportable Platelet Satelliting Not Reportable Plt Morphology Comment Not Reportable RBC Morphology Not Reportable Dimorphic RBCs Not Reportable Polychromasia Not Reportable Hypochromasia 2+ Poikilocytosis Not Reportable Anisocytosis 1+ Microcytosis 2+ Macrocytosis Not Reportable Spherocytes Not Reportable Pappenheimer Bodies Not Reportable Sickle Cells Not Reportable Target Cells 1+ Tear Drop Cells Not Reportable Ovalocytes Not Reportable Helmet Cells Not Reportable Franco-[place] Bodies Not Reportable [place] Rings Not Reportable Cristobal Cells Not Reportable Bite Cells Not Reportable Crenated Cell Not Reportable Elliptocytes Not Reportable Acanthocytes (Spur) Not Reportable Rouleaux Not Reportable Hemoglobin C Crystals Not Reportable Schistocytes Not Reportable Malaria parasites Not Reportable Noah Bodies Not Reportable Hem Pathologist Commnt No PT 12.2 INR 0.86 L APTT 31.5 Sodium 140 Potassium 4.2 Chloride 108.9 H Carbon Dioxide 22 Anion Gap 13 BUN 14 Creatinine 0.7 Estimated GFR > 60 BUN/Creatinine Ratio 20 Glucose 97 Calcium 8.7 Magnesium 2.00 Total Bilirubin 0.20 Direct Bilirubin < 0.2 Indirect Bilirubin 0.0 AST 12 ALT 12 Alkaline Phosphatase 92 Total Creatine Kinase 70 CK-MB (CK-2) 1.9 CK-MB (CK-2) Rel Index 2.7 Troponin T < 0.010 NT-Pro-B Natriuret Pep 103.2 Total Protein 7.2 Albumin 4.0 Albumin/Globulin Ratio 1.3 185k Plat count - Radiology Data Radiology results: report reviewed interpreted by me: Chest x-ray shows no acute process Critical care attestation.: If time is entered above; I have spent that time in minutes in the direct care of this critically ill patient, excluding procedure time. ED Disposition Clinical Impression: Poorly-controlled hypertension Upper respiratory infection Qualifiers: URI type: unspecified URI Qualified Code(s): J06.9 - Acute upper respiratory i nfection, unspecified Disposition: DC-01 TO HOME OR SELFCARE Is pt being admited?: No Does the pt Need Aspirin: No Condition: Stable Instructions: Hypertension (ED), Upper Respiratory Infection (ED) Additional Instructions: Follow-up with [facility] tomorrow. Her blood pressure is poorly controlled. There is essentially taken her medicine. I would recommend that he do take your losartan and amlodipine in the morning. Continue your metoprolol twice a day. Coordinator pressure regimen with the [facility] tomorrow. Take oral your usual medicines when you get home this afternoon. Then take the losartan amlodipine and metoprolol again in the morning. Prescriptions: Azithromycin 250 mg PO DAILY #6 tablet traMADol [Ultram 50 MG tab] 50 mg PO Q6HR PRN #10 tablet PRN Reason: Pain Referrals: PRIMARY CARE, [Primary Care Provider] - 3-5 Days Time of Disposition: 13:02
[2018-12-01 12:44] LABS: Anisocytosis 1+; Basophils % (Manual) 0 % (0.0-1.8); Hypochromasia 2+; Large Platelets Few; Myelocytes # (Manual) 0.1 K/mm3; Platelet Estimate Consistent w Auto; Target Cells 1+; Total Cells Counted 100
[2018-12-01 12:48] LABS: Platelet Count 185 K/mm3 (140-440)
[2018-12-01 13:03] VITALS: BP 165/81
== END 2018-12-01 13:15 | disposition home or self-care (01) ==
LOC: ED 09:53
DX: J06.9 Acute upper respiratory infection, unspecified (principal); I10 Essential (primary) hypertension; F17.200 Nicotine dependence, unspecified, uncomplicated
CPT/HCPCS: 36415; 71045; 80048; 80076; 82550; 82553; 83735; 83880; 84484; 85007; 85025; 85610; 85730; 93005; 93010; 96374

== ENCOUNTER 2018-12-26 18:42 | Emergency (ER) | payer OTHER ==
[2018-12-26] MEDS ORDERED: ZOFRAN ODT PO ONE (19:21)
--- NOTE | 2018-12-26 19:22 | Emergency Department Report ---
Chief Complaint: Abdominal Pain Stated Complaint: ABD PAIN Time Seen by Provider: 12/26/18 19:17 - HPI History of Present Illness: This is a 48 y.o. F with abdominal pain for 1 week. PMH: HTN - ROS Review of Systems: Nausea and diffuse abdominal pain. - Exam Vital Signs: Vital Signs 12/26/18 19:12 Temperature 98.7 F Pulse Rate 73 Respiratory 20 Rate Blood Pressure 210/93 O2 Sat by Pulse 98 Oximetry MSE screening note: Focused history and physical exam performed. Due to findings the following was ordered: Labs and CT of abdomen ACC for further evaluation. ED Disposition for MSE Condition: Stable Instructions: Abdominal Pain (ED)
[2018-12-26 19:52] LABS: Basophils # (Auto) 0.1 K/mm3 (0.0-0.1); Eosinophils # (Auto) 0.1 K/mm3 (0.0-0.4); Eosinophils % (Auto) 1.2 % (0.0-4.3); Hematocrit 38.8 % (30.3-42.9); Hemoglobin 12.2 gm/dl (10.1-14.3); Lymphocytes # (Auto) 1.9 K/mm3 (1.2-5.4); Lymphocytes % (Auto) 19.3 % (13.4-35.0); Mean Corpuscular HGB Conc 31 % (30-34); Monocytes # (Auto) 0.7 K/mm3 (0.0-0.8); Monocytes % (Auto) 7.5 % (0.0-7.3); Red Blood Count 6.68 M/mm3 (3.65-5.03)
[2018-12-26 19:53] LABS: Mean Corpuscular Volume 58 fl (79-97); Platelet Count 170 K/mm3 (140-440); Red Cell Distribution Width 20.8 % (13.2-15.2)
[2018-12-26 20:01] LABS: Alanine Aminotransferase 12 units/L (7-56); Albumin 4.5 g/dL (3.9-5); BUN/Creatinine Ratio 24; Blood Urea Nitrogen 19 mg/dL (7-17); Calcium 9.5 mg/dL (8.4-10.2); Hemolysis Index 13
[2018-12-26 21:09] LABS: Bacteria,Urine 2+ /HPF (Negative); Bilirubin,Urine NEG (Negative); Blood,Urine NEG (Negative); Color,Urine Yellow (Yellow); Mucus,Urine FEW /HPF; Protein,Urine <15 mg/dL mg/dL (Negative); Urobilinogen,Urine < 2.0 mg/dL (<2.0)
[2018-12-26] MEDS ORDERED: NACL 0.9% 1000 ML 1,000 ML IV ONE (21:59)
[2018-12-26] MEDS ORDERED: MORPHINE IV ONE (21:59)
--- NOTE | 2018-12-26 22:02 | Emergency Department Report ---
ED Abdominal Pain HPI - General Chief Complaint: Abdominal Pain Stated Complaint: ABD PAIN Time Seen by Provider: 12/26/18 19:17 Source: patient Mode of arrival: Ambulatory Limitations: No Limitations - History of Present Illness Initial Comments: 48-year-old female presents to ED with complaint of abdominal pain 1 week. Patient states pain is located in the upper abdomen, sharp, nonradiating. Denies any aggravating or alleviating factors. Reports associated nausea and vomiting, denies diarrhea and constipation. PCP: Dr Darwin RIVERA Complaint: abdominal pain -: month(s) (1) Location: epigastric Radiation: none Migration to: no migration Severity: moderate Severity scale (0 -10): 10 Quality: sharp Consistency: intermittent Improves With: nothing Worsens With: nothing Associated Symptoms: nausea, vomiting. denies: diarrhea, fever, chills - Related Data Home Medications Medication Instructions Recorded Confirmed Last Taken Losartan [Cozaar] 1 tab PO DAILY 12/26/18 12/26/18 Unknown Metoprolol [Lopressor TAB] 50 mg PO DAILY 12/26/18 12/26/18 Unknown amLODIPine [Norvasc] 20 mg PO DAILY 12/26/18 12/26/18 Unknown Previous Rx's Medication Instructions Recorded Last Taken Type Dicyclomine [Bentyl] 20 mg PO QID PRN #20 tablet 12/27/18 Unknown Rx Esomeprazole Magnesium [NexIUM] 40 mg PO QDAY #30 capsule. 12/27/18 Unknown Rx Ondansetron [Zofran Odt] 4 mg PO Q8HR PRN #20 tab.rapdis 12/27/18 Unknown Rx Allergies Allergy/AdvReac Type Severity Reaction Status Date / Time No Known Allergies Allergy Verified 04/21/18 14:13 ED Review of Systems ROS: Stated complaint: ABD PAIN Other details as noted in HPI Comment: All other systems reviewed and negative Constitutional: denies: chills, fever Cardiovascular: denies: chest pain Gastrointestinal: abdominal pain, nausea, vomiting. denies: diarrhea, constipation ED Past Medical Hx - Past Medical History Hx Hypertension: Yes - Surgical History Additional Surgical History: right ovary - Social History Smoking Status: Current Every Day Smoker Substance Use Type: Alcohol - Medications Home Medications: Home Medications Medication Instructions Recorded Confirmed Last Taken Type Losartan [Cozaar] 1 tab PO DAILY 12/26/18 12/26/18 Unknown History Metoprolol [Lopressor TAB] 50 mg PO DAILY 12/26/18 12/26/18 Unknown History amLODIPine [Norvasc] 20 mg PO DAILY 12/26/18 12/26/18 Unknown History Dicyclomine [Bentyl] 20 mg PO QID PRN #20 tablet 12/27/18 Unknown Rx Esomeprazole Magnesium [NexIUM] 40 mg PO QDAY #30 capsule. 12/27/18 Unknown Rx Ondansetron [Zofran Odt] 4 mg PO Q8HR PRN #20 tab.rapdis 12/27/18 Unknown Rx ED Physical Exam - General Limitations: No Limitations General appearance: alert, in no apparent distress - Head Head exam: Present: atraumatic, normocephalic - Eye Eye exam: Present: normal appearance - ENT ENT exam: Present: mucous membranes moist - Neck Neck exam: Present: normal inspection - Respiratory Respiratory exam: Present: normal lung sounds bilaterally. Absent: respiratory distress - Cardiovascular Cardiovascular Exam: Present: regular rate, normal rhythm - GI/Abdominal GI/Abdominal exam: Present: soft, tenderness (epigastric and LUQ tenderness). Absent: distended - Extremities Exam Extremities exam: Present: normal inspection - Neurological Exam Neurological exam: Present: alert, oriented X3 - Psychiatric Psychiatric exam: Present: normal affect, normal mood - Skin Skin exam: Present: warm, dry, intact, normal color ED Course Vital Signs 12/26/18 12/26/18 12/26/18 19:12 22:03 22:20 Temperature 98.7 F 98.2 F Pulse Rate 73 Respiratory 20 19 15 Rate Blood Pressure 210/93 Blood Pressure 197/92 [Left] O2 Sat by Pulse 98 99 Oximetry 12/26/18 23:00 Temperature Pulse Rate 67 Respiratory 18 Rate Blood Pressure 167/72 Blood Pressure [Left] O2 Sat by Pulse 89 Oximetry ED Medical Decision Making - Lab Data Result diagrams: 12/26/18 19:28 12/26/18 19:28 - EKG Data -: EKG Interpreted by Ut EKG shows normal: sinus rhythm, axis, intervals, QRS complexes, ST-T waves Rate: normal - EKG Data Interpretation: no acute changes - Radiology Data Radiology results: report reviewed - Medical Decision Making 48-year-old female with epigastric abdominal pain 1 week. Labs unremarkable. Blood pressure initially elevated, however following the morphine administra tion, the patient's pain level improves, and also her BP. CT scan was done and found to have no acute findings. Possibly gastroenteritis. Spoke with patient regarding diet. Recommend GI follow-up. Will prescribe Nexium, Bentyl, Zofran. - Differential Diagnosis pancreatitis, gastritis, ACS, obstruction, gallstones Critical care attestation.: If time is entered above; I have spent that time in minutes in the direct care of this critically ill patient, excluding procedure time. ED Disposition Clinical Impression: Gastritis Disposition: TO HOME OR SELFCARE Is pt being admited?: No Condition: Stable Instructions: Gastritis (ED), Diet for Ulcers and Gastritis (ED), Abdominal Pain (ED) Prescriptions: Dicyclomine [Bentyl] 20 mg PO QID PRN #20 tablet PRN Reason: abdominal pain Esomeprazole Magnesium [NexIUM] 40 mg PO QDAY #30 capsule. Ondansetron [Zofran Odt] 4 mg PO Q8HR PRN #20 tab.rapdis PRN Reason: Vomiting Referrals: DANNA ANDREA MD [Primary Care Provider] - 3-5 Days [facility] [Provider Group] - 3-5 Days Time of Disposition: 00:43
[2018-12-26] MEDS ORDERED: ZOFRAN IV ONE (22:24)
[2018-12-26 23:44] VITALS: BP 167/72
--- NOTE | 2018-12-27 00:20 | Cat Scan Report ---
PROCEDURE: CT ABDOMEN PELVIS W CON TECHNIQUE: Computerized axial tomography of the abdomen and pelvis was performed after the IV inject ion of iodinated nonionic contrast. CT DOSE LENGTH PRODUCT: mGycm HISTORY: RUQ LUQ tenderness COMPARISONS: None . FINDINGS: Visualized lower thorax: No significant abnormality. Liver: Normal size and attenuation. Spleen: Normal size and attenuation. Gallbladder and biliary system: Normal. Pancreas: Normal. Adrenals: Normal. Kidneys: Normal. GI tract: There is no bowel obstruction. There are diverticula of the sigmoid and left colon. There is no diverticulitis. The appendix is normal. . Lymph nodes and mesentery: Normal. Vasculature: Normal.. Bladder: Normal. Reproductive organs: Uterus is unremarkable. There are cysts in the left ovary measuring up to 3 cm.. Peritoneum: There is no ascites or free air, abscess or adenopathy.. Musculoskeletal structures: No significant abnormality. IMPRESSION: There is no bowel obstruction. There are diverticula of the sigmoid and left colon. There is no diver ticulitis. The appendix is normal. . Uterus is unremarkable. There are cysts in the left ovary measuring up to 3 cm.. There is no ascites or free air, abscess or adenopathy.. . This document is electronically signed by Yevgeniy Hudson MD., December 27 2018 12:18:35 AM ET
[2018-12-27] MEDS ORDERED: ALUM-MAG HYDROX-SIMETH 200-200-20MG/5ML PO ONE (00:41)
[2018-12-27] MEDS ORDERED: LIDOCAINE VISCOUS 2% PO ONE (00:41)
== END 2018-12-27 01:02 | disposition home or self-care (01) ==
LOC: ED 18:42
DX: K29.70 Gastritis, unspecified, without bleeding (principal); F17.200 Nicotine dependence, unspecified, uncomplicated
CPT/HCPCS: 36415; 74177; 80053; 81001; 83690; 84484; 84703; 85025; 93005; 93010; 96361; 96374; 96375; 99284; J2270; J2405; J7030; Q9967

== ENCOUNTER 2019-01-05 13:07 | Emergency (ER) | payer OTHER ==
--- NOTE | 2019-01-05 13:37 | Emergency Department Report ---
Chief Complaint: Abdominal Pain Stated Complaint: SEVERE STOMACH PAIN Time Seen by Provider: 01/05/19 13:32 - HPI History of Present Illness: pt presents with epigastric abd pain that began a month ago intermittent sharp pains pt has an appointment on january 19, 2019 with GI doctor pt was given GI cocktail two weeks ago which she states helped settle her stomach for "a minute" no fever (+) N/V-1 episode no diarrhea normal BM no urinary sx PMHx HTN, pt takes metoprolol, amlodipine, losartan states she took all of her medications today PSHx oopherectomy for ovarian cyst (+) drinker social (+) smoker 1 ppd no drug use BP is 199/100 in triage no numbness, weakness, no vision changes MSE screening note: Focused history performed. Due to findings the following was ordered: labs, UA, urine preg ED Disposition for MSE Condition: Stable Instructions: Abdominal Pain (ED)
[2019-01-05] MEDS ORDERED: ZOFRAN ODT PO ONE (13:38)
[2019-01-05] MEDS ORDERED: ZOFRAN ODT ONE (13:41)
[2019-01-05 14:42] LABS: Alanine Aminotransferase 20 units/L (7-56); Albumin 3.8 g/dL (3.9-5); BUN/Creatinine Ratio 28; Blood Urea Nitrogen 17 mg/dL (7-17); Calcium 9.4 mg/dL (8.4-10.2); Hemolysis Index 7
[2019-01-05 14:44] LABS: Basophils # (Auto) 0.1 K/mm3 (0.0-0.1); Eosinophils # (Auto) 0.1 K/mm3 (0.0-0.4); Eosinophils % (Auto) 1.7 % (0.0-4.3); Hematocrit 37.2 % (30.3-42.9); Hemoglobin 11.5 gm/dl (10.1-14.3); Mean Corpuscular HGB Conc 31 % (30-34); Mean Corpuscular Volume 59 fl (79-97); Monocytes # (Auto) 0.6 K/mm3 (0.0-0.8); Monocytes % (Auto) 7.5 % (0.0-7.3); Red Cell Distribution Width 21.1 % (13.2-15.2)
[2019-01-05 14:47] LABS: Basophils % (Auto) 0.8 % (0.0-1.8); Lymphocytes # (Auto) 1.6 K/mm3 (1.2-5.4); Lymphocytes % (Auto) 21.1 % (13.4-35.0)
[2019-01-05 15:24] LABS: Platelet Count 148 K/mm3 (140-440)
[2019-01-05 15:34] LABS: HCG Qualitative,Urine Negative (Negative)
[2019-01-05 15:38] LABS: Bacteria,Urine 1+ /HPF (Negative); Bilirubin,Urine NEG (Negative); Blood,Urine NEG (Negative); Color,Urine Yellow (Yellow); Mucus,Urine FEW /HPF; Protein,Urine <15 mg/dL mg/dL (Negative)
[2019-01-05] MEDS ORDERED: LIDOCAINE VISCOUS 2% PO ONE (17:22)
[2019-01-05] MEDS ORDERED: PEPCID PO ONE (17:22)
--- NOTE | 2019-01-05 17:54 | Emergency Department Report ---
ED Abdominal Pain HPI - General Chief Complaint: Abdominal Pain Stated Complaint: SEVERE STOMACH PAIN Time Seen by Provider: 01/05/19 13:32 Source: patient Mode of arrival: Ambulatory Limitations: No Limitations - History of Present Illness Initial Comments: This is a 48-year-old female with a history of gastritis who presents to ED complaining of made abdominal pain with no radiation. Patient states she has an appointment with her GI doctor next week but she started expressing some pain with nausea so she presented to be evaluated. Patient denies diarrhea, dysuria, vaginal bleeding or any other symptoms. MD Complaint: abdominal pain Severity scale (0 -10): 8 - Related Data Home Medications Medication Instructions Recorded Confirmed Last Taken Losartan [Cozaar] 1 tab PO DAILY 12/26/18 12/26/18 Unknown Metoprolol [Lopressor TAB] 50 mg PO DAILY 12/26/18 12/26/18 Unknown amLODIPine [Norvasc] 20 mg PO DAILY 12/26/18 12/26/18 Unknown Previous Rx's Medication Instructions Recorded Last Taken Type Dicyclomine [Bentyl] 20 mg PO QID PRN #20 tablet 12/27/18 Unknown Rx Esomeprazole Magnesium [NexIUM] 40 mg PO QDAY #30 capsule. 12/27/18 Unknown Rx Ondansetron [Zofran Odt] 4 mg PO Q8HR PRN #20 tab.rapdis 12/27/18 Unknown Rx Dicyclomine [Bentyl] 10 mg PO BID #30 capsule 01/05/19 Unknown Rx Famotidine [Pepcid] 20 mg PO BID #30 tablet 01/05/19 Unknown Rx Ondansetron [Zofran ODT TAB] 8 mg PO Q12HR #20 tab.rapdis 01/05/19 Unknown Rx Allergies Allergy/AdvReac Type Severity Reaction Status Date / Time No Known Allergies Allergy Verified 01/05/19 13:14 ED Review of Systems ROS: Stated complaint: SEVERE STOMACH PAIN Other details as noted in HPI Constitutional: denies: chills, fever Eyes: denies: eye pain, eye discharge, vision change ENT: denies: ear pain, throat pain Respiratory: denies: cough, shortness of breath, wheezing Cardiovascular: denies: chest pain, palpitations Endocrine: no symptoms reported Gastrointestinal: denies: abdominal pain, nausea, diarrhea Genitourinary: denies: urgency, dysuria, discharge Musculoskeletal: denies: back pain, joint swelling, arthralgia Skin: denies: rash, lesions Neurological: denies: headache, weakness, paresthesias Psychiatric: denies: anxiety, depression Hematological/Lymphatic: denies: easy bleeding, easy bruising ED Past Medical Hx - Past Medical History Hx Hypertension: Yes - Surgical History Additional Surgical History: right ovary - Social History Smoking Status: Current Every Day Smoker Substance Use Type: None - Medications Home Medications: Home Medications Medication Instructions Recorded Confirmed Last Taken Type Losartan [Cozaar] 1 tab PO DAILY 12/26/18 12/26/18 Unknown History Metoprolol [Lopressor TAB] 50 mg PO DAILY 12/26/18 12/26/18 Unknown History amLODIPine [Norvasc] 20 mg PO DAILY 12/26/18 12/26/18 Unknown History Dicyclomine [Bentyl] 20 mg PO QID PRN #20 tablet 12/27/18 Unknown Rx Esomeprazole Magnesium [NexIUM] 40 mg PO QDAY #30 capsule. 12/27/18 Unknown Rx Ondansetron [Zofran Odt] 4 mg PO Q8HR PRN #20 tab.rapdis 12/27/18 Unknown Rx Dicyclomine [Bentyl] 10 mg PO BID #30 capsule 01/05/19 Unknown Rx Famotidine [Pepcid] 20 mg PO BID #30 tablet 01/05/19 Unknown Rx Ondansetron [Zofran ODT TAB] 8 mg PO Q12HR #20 tab.rapdis 01/05/19 Unknown Rx ED Physical Exam - General Limitations: No Limitations General appearance: alert, in no apparent distress - Head Head exam: Present: atraumatic, normocephalic - Eye Eye exam: Present: normal appearance - ENT ENT exam: Present: mucous membranes moist - Neck Neck exam: Present: normal inspection - Respiratory Respiratory exam: Present: normal lung sounds bilaterally. Absent: respiratory distress - Cardiovascular Cardiovascular Exam: Present: regular rate, normal rhythm. Absent: systolic murmur, diastolic murmur, rubs, gallop - GI/Abdominal GI/Abdominal exam: Present: soft, normal bowel sounds - Extremities Exam Extremities exam: Present: normal inspection - Back Exam Back exam: Present: normal inspection - Neurological Exam Neurological exam: Present: alert, oriented X3 - Psychiatric Psychiatric exam: Present: normal affect, normal mood - Skin Skin exam: Present: warm, dry, intact, normal color. Absent: rash ED Course Vital Signs 01/05/19 13:34 Temperature 98.6 F Pulse Rate 81 Respiratory 18 Rate Blood Pressure 199/100 O2 Sat by Pulse 100 Oximetry ED Medical Decision Making - Lab Data Result diagrams: 01/05/19 14:02 01/05/19 14:02 - Medical Decision Making 48-year-old female presents with a gastritis Patient received Zofran, GI cocktail in the ED Is amount of vomiting episode in the ED. Vital signs are normal. Patient is in no acute distress Critical care attestation.: If time is entered above; I have spent that time in minutes in the direct care of this critically ill patient, excluding procedure time. ED Disposition Clinical Impression: Gastritis Disposition: DC- TO HOME OR SELFCARE Is pt being admited?: No Does the pt Need Aspirin: No Condition: Stable Instructions: Abdominal Pain (ED), Gastritis (ED) Additional Instructions: Make sure to follow up with the primary care physician as discussed. Take all your medications as you've been prescribed. If you have any worsening symptoms or develop new symptoms please return to ED immediately. Prescriptions: Dicyclomine [Bentyl] 10 mg PO BID #30 capsule Famotidine [Pepcid] 20 mg PO BID #30 tablet Ondansetron [Zofran ODT TAB] 8 mg PO Q12HR #20 tab.jamie Referrals: DANNA ANDREA MD [Primary Care Provider] - 3-5 Days Forms: Accompanied Note, Work/School Release Form(ED) Time of Disposition: 18:00
[2019-01-05] MEDS ORDERED: BENTYL PO ONE (18:22)
[2019-01-06 19:05] VITALS: BP 199/100
== END 2019-01-05 18:27 | disposition home or self-care (01) ==
LOC: ED 13:07
DX: K29.70 Gastritis, unspecified, without bleeding (principal); I10 Essential (primary) hypertension
CPT/HCPCS: 36415; 80053; 81001; 81025; 83690; 85025; 99283; Q0162

== ENCOUNTER 2019-04-10 13:15 | Emergency (ER) | payer OTHER ==
--- NOTE | 2019-04-10 14:04 | XRay Report ---
CHEST 2 VIEWS INDICATION / CLINICAL INFORMATION: chest pain. COMPARISON: 12/01/18 FINDINGS: SUPPORT DEVICES: None. HEART / MEDIASTINUM: No significant abnormality. LUNGS / PLEURA: No significant pulmonary or pleural abnormality. No pneumothorax. ADDITIONAL FINDINGS: No significant additional findings. IMPRESSION: 1. No acute findings. No significant change. Signer Name: Spike Gooden MD Signed: 04/10/2019 2:00 PM Workstation Name: [id number]
[2019-04-10] MEDS ORDERED: TORADOL IV ONE (15:50)
[2019-04-10] MEDS ORDERED: ZOFRAN IV ONE (15:50)
[2019-04-10] MEDS ORDERED: NACL 0.9% 1000 ML 1,000 ML IV ONE (15:50)
[2019-04-10] MEDS ORDERED: BENADRYL IV ONE (15:50)
[2019-04-10 16:11] LABS: Basophils # (Auto) 0.2 K/mm3 (0.0-0.1); Basophils % (Auto) 2.6 % (0.0-1.8); Eosinophils # (Auto) 0.2 K/mm3 (0.0-0.4); Eosinophils % (Auto) 2.5 % (0.0-4.3); Hematocrit 39.5 % (30.3-42.9); Hemoglobin 12.7 gm/dl (10.1-14.3); Lymphocytes # (Auto) 0.5 K/mm3 (1.2-5.4); Lymphocytes % (Auto) 8.2 % (13.4-35.0); Mean Corpuscular HGB Conc 32 % (30-34); Monocytes # (Auto) 0.5 K/mm3 (0.0-0.8); Monocytes % (Auto) 9.1 % (0.0-7.3); Red Blood Count 6.87 M/mm3 (3.65-5.03)
[2019-04-10 16:16] LABS: Mean Corpuscular Volume 58 fl (79-97); Platelet Count 158 K/mm3 (140-440); Red Cell Distribution Width 22.1 % (13.2-15.2)
[2019-04-10 16:21] LABS: INR 0.92 (0.87-1.13)
[2019-04-10] MEDS ORDERED: APRESOLINE IV ONE ×2 (16:33→18:47)
[2019-04-10 16:34] LABS: BUN/Creatinine Ratio 16; Blood Urea Nitrogen 11 mg/dL (7-17); Calcium 9.3 mg/dL (8.4-10.2); Hemolysis Index 4
--- NOTE | 2019-04-10 16:37 | Emergency Department Report ---
ED Chest Pain HPI - General Chief Complaint: Chest Pain Stated Complaint: HEADACHE/LT ARM PAIN Time Seen by Provider: 04/10/19 15:15 Source: patient Mode of arrival: Ambulatory Limitations: No Limitations - History of Present Illness Initial Comments: This is a 48-year-old female who presents to ED complaining of headache and left-sided neck pain 3 days ago. Patient states she has no history of migraines or headaches. Patient states that she has had a headache like this before. Patient states pain starts on her left neck and radiate up towards and downwards to her left shoulder and chest. Patient states she was at work when this happened. Patient rates pain a 10 out of 10 intensity. Patient has a history of hypertension currently taking any medication. She denies shortness of breath, fever, chills or visual disturbances. Severity scale (0 -10): 10 - Related Data Home Medications Medication Instructions Recorded Confirmed Last Taken Losartan [Cozaar] 1 tab PO DAILY 12/26/18 12/26/18 Unknown Metoprolol [Lopressor TAB] 50 mg PO DAILY 12/26/18 12/26/18 Unknown amLODIPine [Norvasc] 20 mg PO DAILY 12/26/18 12/26/18 Unknown Previous Rx's Medication Instructions Recorded Last Taken Type Dicyclomine [Bentyl] 20 mg PO QID PRN #20 tablet 12/27/18 Unknown Rx Esomeprazole Magnesium [NexIUM] 40 mg PO QDAY #30 capsule. 12/27/18 Unknown Rx Ondansetron [Zofran Odt] 4 mg PO Q8HR PRN #20 tab.deneendis 12/27/18 Unknown Rx Dicyclomine [Bentyl] 10 mg PO BID #30 capsule 01/05/19 Unknown Rx Famotidine [Pepcid] 20 mg PO BID #30 tablet 01/05/19 Unknown Rx Ondansetron [Zofran ODT TAB] 8 mg PO Q12HR #20 tab.deneendis 01/05/19 Unknown Rx Cyclobenzaprine [Flexeril] 10 mg PO QHS PRN #15 tablet 04/10/19 Unknown Rx Naproxen [Naprosyn] 500 mg PO BID #30 tablet 04/10/19 Unknown Rx Allergies Allergy/AdvReac Type Severity Reaction Status Date / Time No Known Allergies Allergy Verified 04/10/19 18:51 Heart Score - HEART Score History: Slightly suspicious EKG: Normal Age: 45-65 Risk factors: 1-2 risk factors Troponin: < normal limit HEART Score: 2 ED Review of Systems ROS: Stated complaint: HEADACHE/LT ARM PAIN Other details as noted in HPI Comment: All other systems reviewed and negative ED Past Medical Hx - Past Medical History Previous Medical History?: Yes Hx Hypertension: Yes - Surgical History Past Surgical History?: Yes Additional Surgical History: right ovary - Social History Smoking Status: Current Every Day Smoker Substance Use Type: Alcohol - Medications Home Medications: Home Medications Medication Instructions Recorded Confirmed Last Taken Type Losartan [Cozaar] 1 tab PO DAILY 12/26/18 12/26/18 Unknown History Metoprolol [Lopressor TAB] 50 mg PO DAILY 12/26/18 12/26/18 Unknown History amLODIPine [Norvasc] 20 mg PO DAILY 12/26/18 12/26/18 Unknown History Dicyclomine [Bentyl] 20 mg PO QID PRN #20 tablet 12/27/18 Unknown Rx Esomeprazole Magnesium [NexIUM] 40 mg PO QDAY #30 capsule. 12/27/18 Unknown Rx Ondansetron [Zofran Odt] 4 mg PO Q8HR PRN #20 tab.rapdis 12/27/18 Unknown Rx Dicyclomine [Bentyl] 10 mg PO BID #30 capsule 01/05/19 Unknown Rx Famotidine [Pepcid] 20 mg PO BID #30 tablet 01/05/19 Unknown Rx Ondansetron [Zofran ODT TAB] 8 mg PO Q12HR #20 tab.rapdis 01/05/19 Unknown Rx Cyclobenzaprine [Flexeril] 10 mg PO QHS PRN #15 tablet 04/10/19 Unknown Rx Naproxen [Naprosyn] 500 mg PO BID #30 tablet 04/10/19 Unknown Rx ED Physical Exam - General Limitations: No Limitations General appearance: alert, in no apparent distress - Head Head exam: Present: atraumatic, normocephalic - Eye Eye exam: Present: normal appearance, PERRL Pupils: Present: normal accommodation - ENT ENT exam: Present: mucous membranes moist - Neck Neck exam: Present: normal inspection, tenderness (with palpation of the left sternocleidomastoid muscle), full ROM - Respiratory Respiratory exam: Present: normal lung sounds bilaterally, chest wall tenderness (to palpation in the left upper thoracic level of the scapula). Absent: respiratory distress, wheezes, decreased breath sounds - Cardiovascular Cardiovascular Exam: Present: regular rate, normal rhythm, normal heart sounds. Absent: systolic murmur, diastolic murmur, rubs, gallop - GI/Abdominal GI/Abdominal exam: Present: soft, normal bowel sounds. Absent: distended, tenderness - Extremities Exam Extremities exam: Present: normal inspection - Back Exam Back exam: Present: normal inspection, full ROM. Absent: tenderness, CVA tenderness (L) - Neurological Exam Neurological exam: Present: alert, oriented X3, CN II-XII intact, normal gait - Psychiatric Psychiatric exam: Present: normal affect, normal mood - Skin Skin exam: Present: warm, dry, intact, normal color. Absent: rash ED Course Vital Signs 04/10/19 04/10/19 04/10/19 13:36 16:43 16:51 Temperature 98.5 F Pulse Rate 83 68 Respiratory 18 18 Rate Blood Pressure 210/76 Blood Pressure 197/88 [Right] O2 Sat by Pulse 97 Oximetry 04/10/19 04/10/19 04/10/19 18:36 19:36 20:16 Temperature Pulse Rate 84 74 86 Respiratory 16 18 Rate Blood Pressure 179/67 Blood Pressure 190/76 185/74 [Right] O2 Sat by Pulse 96 Oximetry - Reevaluation(s) Reevaluation #1: Patient upon reevaluation states that she is still experiencing the same level of pain., 1 hour troponin ordered, 10 mg of hydralazine and 15 mg of Toradol ordered. CT scan pending. Patient is laying down in ED bed 04/10/19 18:51 INO score - Ino Score Age > 65: (0) No Aspirin use within the Past 7 Days: (0) No 3 or more CAD Risk Factors: (0) No 2 or more Angina events in past 24 hrs: (0) No Known CAD with more than 50% Stenosis: (0) No Elevated Cardiac Markers: (0) No ST Deviation Greater than 0.5mm: (0) No INO Score: 0 ED Medical Decision Making - Lab Data Result diagrams: 04/10/19 15:57 04/10/19 15:57 Laboratory Last Values WBC 6.0 K/mm3 (4.5-11.0) 04/10/19 15:57 RBC 6.87 M/mm3 (3.65-5.03) H 04/10/19 15:57 Hgb 12.7 gm/dl (10.1-14.3) 04/10/19 15:57 Hct 39.5 % (30.3-42.9) 04/10/19 15:57 MCV 58 fl (79-97) L 04/10/19 15:57 MCH 19 pg (28-32) L 04/10/19 15:57 MCHC 32 % (30-34) 04/10/19 15:57 RDW 22.1 % (13.2-15.2) H 04/10/19 15:57 Plt Count 158 K/mm3 (140-440) 04/10/19 15:57 Lymph % (Auto) 8.2 % (13.4-35.0) L 04/10/19 15:57 [place] % (Auto) 9.1 % (0.0-7.3) H 04/10/19 15:57 Eos % (Auto) 2.5 % (0.0-4.3) 04/10/19 15:57 Baso % (Auto) 2.6 % (0.0-1.8) H 04/10/19 15:57 Lymph # 0.5 K/mm3 (1.2-5.4) L 04/10/19 15:57 [place] # 0.5 K/mm3 (0.0-0.8) 04/10/19 15:57 Eos # 0.2 K/mm3 (0.0-0.4) 04/10/19 15:57 Baso # 0.2 K/mm3 (0.0-0.1) H 04/10/19 15:57 Seg Neutrophils % 77.6 % (40.0-70.0) H 04/10/19 15:57 Seg Neutrophils # 4.7 K/mm3 (1.8-7.7) 04/10/19 15:57 PT 12.1 Sec. (12.2-14.9) L 04/10/19 15:57 INR 0.92 (0.87-1.13) 04/10/19 15:57 Sodium 142 mmol/L (137-145) 04/10/19 15:57 Potassium 3.6 mmol/L (3.6-5.0) 04/10/19 15:57 Chloride 103.7 mmol/L (98-107) 04/10/19 15:57 Carbon Dioxide 25 mmol/L (22-30) 04/10/19 15:57 17 mmol/L 04/10/19 15:57 BUN 11 mg/dL (7-17) 04/10/19 15:57 0.7 mg/dL (0.7-1.2) 04/10/19 15:57 Estimated GFR > 60 ml/min 04/10/19 15:57 16 % 04/10/19 15:57 Glucose 73 mg/dL (65-100) 04/10/19 15:57 Calcium 9.3 mg/dL (8.4-10.2) 04/10/19 15:57 < 0.010 ng/mL (0.00-0.029) 04/10/19 15:57 NT-Pro-B Natriuret Pep 272.6 pg/mL (0-450) 04/10/19 15:57 - EKG Data EKG shows normal: sinus rhythm Rate: normal - EKG Data Interpretation: no acute changes, other - Radiology Data Radiology results: report reviewed, image reviewed CT head/brain wo con INDICATION: headache. TECHNIQUE: Routine CT head without contrast. Sagittal and coronal reformatted images were obtained. All CT scans at this location are performed using CT dose reduction for ALARA by means of automated exposure control. COMPARISON: None. FINDINGS: BRAIN / INTRACRANIAL CONTENTS: No acute hemorrhage, mass effect, midline shift, hydrocephalus, or acute, large territorial infarct. No chronic infarct or focal atrophy. Normal brain volume and ventricular/sulcal size for age. No significant white matter abnormality. Empty sella is seen. CRANIOCERVICAL JUNCTION: No significant abnormality. ORBITS: Bilateral symmetric lordosis seen. I do not see retrobulbar are mass. Ocular globes are normal. SINUSES / MASTOIDS: No significant abnormality of the visualized paranasal sinuses or mastoid air cells. ADDITIONAL FINDINGS: None. IMPRESSION: I do not see an acute parenchymal lesion in the brain. Signer Name: Lety Carroll MD Signed: 04/10/2019 6:34 PM Workstation Name: [facility] Transcribed By: CAMELIA Dictated By: Lety Parsons MD Electronically Authenticated By: Lety Parsons MD Signed Date/Time: 04/10/19 1834 T scan of the cervical spine: HISTORY: Pain in the back of head; left arm pain FINDINGS: Initially, nonenhanced axial images were obtained. Sagittal and coronal reformatted images were obtained. Normal alignment of the vertebral bodies are articular facets are seen. Mild straightening of cervical lordosis seen. Foramen magnum, craniovertebral junction and the cervicomedullary junction are normal. I do not see fracture involving the bony canal. Soft tissue structures around the cervical spine appear normal. Neural foramina and the central canal are normal. IMPRESSION: I do not see disc herniation in the cervical spine Neuroforamina are normal All CT scans at this location are performed using CT dose reduction for ALARA by means of automated exposure control. Signer Name: Lety Carroll MD Signed: 04/10/2019 6:38 PM Workstation Name: [email or web address] Transcribed By: BS Dictated By: Lety Parsons MD Electronically Authenticated By: Lety Parsons MD Signed Date/Time: 04/10/19 1838 - Medical Decision Making This is a 48-year-old female who presents to ED with headache. All labs are within normal limits, troponin negative, EKG normal, chest x-ray normal, CT of the head and neck shows normal results no acute bleed no disc herniation see reported above Patient received 1 L of fluids, Zofran and Benadryl and Toradol in the ED. Patient look pressure was elevated in the ED 20 mg of IV hydralazine was administered Vital signs are normalizing. Discussed follow-up with primary care physician. Patient is in no acute distre ss or respiratory distress. Patient will be discharged home with pain medication and referrals for follow- up. Critical Care Time: Yes Critical care time in (mins) excluding proc time.: 30 (minutes) Critical care attestation.: If time is entered above; I have spent that time in minutes in the direct care of this critically ill patient, excluding procedure time. ED Disposition Clinical Impression: Uncontrolled hypertension, Headache, Costochondral chest pain Disposition: DC- TO HOME OR SELFCARE Is pt being admited?: No Does the pt Need Aspirin: No Condition: Stable Instructions: Chest Pain (ED), Tension Headache (ED), Costochondritis (ED), Acu te Headache (ED), Hypertension (ED) Additional Instructions: Make sure to follow up with the primary care physician as discussed. Take all your medications as you've been prescribed. If you have any worsening symptoms or develop new symptoms please return to ED immediately. Prescriptions: Cyclobenzaprine [Flexeril] 10 mg PO QHS PRN #15 tablet PRN Reason: Muscle Spasm Naproxen [Naprosyn] 500 mg PO BID #30 tablet Referrals: BRIGHT CEE MD [Primary Care Provider] - 3-5 Days ROMÁN MCDERMOTT MD [Staff Physician] - 3-5 Days [facility] [Provider Group] - 3-5 Days Forms: Work/School Release Form(ED)
--- NOTE | 2019-04-10 18:38 | Cat Scan Report ---
CT head/brain wo con INDICATION: headache. TECHNIQUE: Routine CT head without contrast. Sagittal and coronal reformatted images were obtained. A ll CT scans at this location are performed using CT dose reduction for ALARA by means of automated ex posure control. COMPARISON: None. FINDINGS: BRAIN / INTRACRANIAL CONTENTS: No acute hemorrhage, mass effect, midline shift, hydrocephalus, or acu te, large territorial infarct. No chronic infarct or focal atrophy. Normal brain volume and ventricul ar/sulcal size for age. No significant white matter abnormality. Empty sella is seen. CRANIOCERVICAL JUNCTION: No significant abnormality. ORBITS: Bilateral symmetric lordosis seen. I do not see retrobulbar are mass. Ocular globes are leif l. SINUSES / MASTOIDS: No significant abnormality of the visualized paranasal sinuses or mastoid air scarlet ls. ADDITIONAL FINDINGS: None. IMPRESSION: I do not see an acute parenchymal lesion in the brain. Signer Name: Lety Carroll MD Signed: 04/10/2019 6:34 PM Workstation Name: [id number]
--- NOTE | 2019-04-10 18:42 | Cat Scan Report ---
CT scan of the cervical spine: HISTORY: Pain in the back of head; left arm pain FINDINGS: Initially, nonenhanced axial images were obtained. Sagittal and coronal reformatted images were obtained. Normal alignment of the vertebral bodies are articular facets are seen. Mild straightening of cervica l lordosis seen. Foramen magnum, craniovertebral junction and the cervicomedullary junction are leif l. I do not see fracture involving the bony canal. Soft tissue structures around the cervical spine appear normal. Neural foramina and the central canal are normal. IMPRESSION: I do not see disc herniation in the cervical spine Neuroforamina are normal All CT scans at this location are performed using CT dose reduction for ALARA by means of automated e xposure control. Signer Name: Lety Carroll MD Signed: 04/10/2019 6:38 PM Workstation Name: [id number]
[2019-04-10] MEDS ORDERED: COMPAZINE IV ONE (18:47)
[2019-04-10 20:16] VITALS: BP 179/67
== END 2019-04-10 21:00 | disposition home or self-care (01) ==
LOC: ED 13:15
DX: I10 Essential (primary) hypertension (principal); R51 Headache; R07.89 Other chest pain; F17.200 Nicotine dependence, unspecified, uncomplicated; Z98.890 Other specified postprocedural states
CPT/HCPCS: 36415; 70450; 71046; 72125; 80048; 83880; 84484; 85025; 85610; 93005; 93010; 96361; 96374; 96375; 99284; J0360; J0780; J1200; J1885; J2405; J7030

== ENCOUNTER 2019-06-08 12:00 | Emergency (ER) | payer OTHER ==
--- NOTE | 2019-06-08 13:06 | Event Note ---
ED Screening Note ED Screening Note: HELLER since saturday with right eye pain hx of HTN, amlodipine, losartan no numbness or weakness states she did take her medication today BP is elevated in triage This initial assessment/diagnostic orders/clinical plan/treatment(s) is/are subject to change based on patients health status, clinical progression and re- assessment by fellow clinical providers in the ED. Further treatment and workup at subsequent clinical providers discretion. Patient/guardian urged not to elope from the ED as their condition may be serious if not clinically assessed and managed. Initial orders include: CT head, basic labs
[2019-06-08 14:06] LABS: Hematocrit 37.7 % (30.3-42.9); Hemoglobin 11.9 gm/dl (10.1-14.3); Mean Corpuscular HGB Conc 32 % (30-34); Red Blood Count 6.46 M/mm3 (3.65-5.03)
[2019-06-08 14:10] LABS: Mean Corpuscular Volume 58 fl (79-97); Red Cell Distribution Width 22.2 % (13.2-15.2)
[2019-06-08 14:24] LABS: BUN/Creatinine Ratio 22; Blood Urea Nitrogen 20 mg/dL (7-17); Calcium 9.8 mg/dL (8.4-10.2); Hemolysis Index 2
[2019-06-08] MEDS ORDERED: NORCO 5/325 PO ONE (14:42)
--- NOTE | 2019-06-08 14:57 | Emergency Department Report ---
HPI - General Chief Complaint: Headache Time Seen by Provider: 06/08/19 13:05 - HPI HPI: 48-year-old -[place] female presents to the emergency department with the complaint of a 3 to four-day history of a right-sided throbbing headache. She also complains of some redness and blurry vision to the right eye she denies any fever, neck pain, dizziness, chest pain, nausea, vomiting, slurred speech or any other neurological deficits. Patient presents with elevated blood pressure despite compliance with her blood pressure medications. The patient is on losartan, Lopressor and amlodipine and took it this morning. No recent travel or sick contacts at home. The patient usually wears contacts but does not have them in at this time. ED Past Medical Hx - Past Medical History Previous Medical History?: Yes Hx Hypertension: Yes - Surgical History Past Surgical History?: Yes Additional Surgical History: right ovary - Social History Smoking Status: Current Every Day Smoker Substance Use Type: None - Medications Home Medications: Home Medications Medication Instructions Recorded Confirmed Last Taken Type Losartan [Cozaar] 1 tab PO DAILY 12/26/18 12/26/18 Unknown History Metoprolol [Lopressor TAB] 50 mg PO DAILY 12/26/18 12/26/18 Unknown History amLODIPine [Norvasc] 20 mg PO DAILY 12/26/18 12/26/18 Unknown History Dicyclomine [Bentyl] 20 mg PO QID PRN #20 tablet 12/27/18 Unknown Rx Esomeprazole Magnesium [NexIUM] 40 mg PO QDAY #30 capsule. 12/27/18 Unknown Rx Ondansetron [Zofran Odt] 4 mg PO Q8HR PRN #20 tab.deneendis 12/27/18 Unknown Rx Dicyclomine [Bentyl] 10 mg PO BID #30 capsule 01/05/19 Unknown Rx Famotidine [Pepcid] 20 mg PO BID #30 tablet 01/05/19 Unknown Rx Ondansetron [Zofran ODT TAB] 8 mg PO Q12HR #20 tab.rapdis 01/05/19 Unknown Rx Cyclobenzaprine [Flexeril] 10 mg PO QHS PRN #15 tablet 04/10/19 Unknown Rx Naproxen [Naprosyn] 500 mg PO BID #30 tablet 04/10/19 Unknown Rx ED Review of Systems ROS: Stated complaint: SEVERE HEADACHE/RT EYE PAIN Other details as noted in HPI Comment: All other systems reviewed and negative Constitutional: denies: chills, fever Eyes: vision change. denies: eye discharge ENT: denies: ear pain, throat pain Respiratory: denies: cough, shortness of breath Cardiovascular: denies: chest pain, palpitations Gastrointestinal: denies: abdominal pain, vomiting Genitourinary: denies: dysuria, discharge Musculoskeletal: denies: back pain, arthralgia Skin: denies: rash, lesions Neurological: headache. denies: weakness, numbness, paresthesias, confusion Physical Exam - Physical Exam Vital Signs: Vital Signs 06/08/19 13:05 Temperature 98.7 F Pulse Rate 90 Respiratory 16 Rate Blood Pressure 199/90 O2 Sat by Pulse 96 Oximetry Physical Exam: GENERAL: The patient is well-developed well-nourished. HENT: Normocephalic. Atraumatic. Patient has moist mucous membranes. EYES: Extraocular motions are intact. Pupils equal reactive to light bilaterally. There is a subconjunctival hemorrhage to the medial portion of the right eye. Visual acuity: OD 20/40, OS 20/50, both eyes 20/30 NECK: Supple. Trachea is midline. CHEST/LUNGS: Clear to auscultation. There is no respiratory distress noted. HEART/CARDIOVASCULAR: Regular. There is no tachycardia. There is no murmur. ABDOMEN: Abdomen is soft, nontender. Patient has normal bowel sounds. There is no abdominal distention. SKIN: Skin is warm and dry. NEURO: The patient is awake, alert, and oriented. The patient is cooperative. The patient has no focal neurologic deficits. Normal speech. Cranial nerves II through XII grossly intact. MUSCULOSKELETAL: There is no tenderness or deformity. There is no limitation range of motion. There is no evidence of acute injury. ED Course Vital Signs 06/08/19 13:05 Temperature 98.7 F Pulse Rate 90 Respiratory 16 Rate Blood Pressure 199/90 O2 Sat by Pulse 96 Oximetry ED Medical Decision Making - Lab Data Result diagrams: 06/08/19 13:18 06/08/19 13:18 - Radiology Data Radiology results: report reviewed CT of the head does not show any acute intracranial process including no ischemia, shift, mass, bleeding or skull fracture. - Medical Decision Making This patient presents with a long-term headache, greater than 2 weeks, although it does appear to be intermittent in its intensity. She does not appear to have any focal, motor or sensory deficits and her cranial nerves are intact. She has a medial right eye subconjunctival hemorrhage. Her visual acuity was checked and is poor but she is not wearing her contacts or glasses. Also, the affected right eye has better vision then the nonaffected left eye. CT head did not show any bleed, shift, mass, ischemia, or any other acute process. Labs were unremarkable. She was given some pain medication and upon reevaluation she is feeling improved. Vital signs stable throughout her ED course. She did have some hypertension at first but it came down to a reasonable level without giving any further antihypertensives. She will follow up with primary care and has been given a referral for neurology. She will return to the ER with any worsen ing of her symptoms or any acute distress. - Differential Diagnosis tension headache, migraine, cluster headache, subarachnoid Critical Care Time: No Critical care attestation.: If time is entered above; I have spent that time in minutes in the direct care of this critically ill patient, excluding procedure time. ED Disposition Clinical Impression: Subconjunctival hemorrhage of right eye Hypertension Qualifiers: Hypertension type: essential hypertension Qualified Code(s): I10 - Essential (primary) hypertension Headache Qualifiers: Headache type: unspecified Headache chronicity pattern: unspecified pattern Intractability: not intractable Qualified Code(s): R51 - Headache Disposition: DC-01 TO HOME OR SELFCARE Is pt being admited?: No Condition: Stable Instructions: Subconjunctival Hemorrhage (ED), Acute Headache (ED), Hypertension (ED) Additional Instructions: Please follow-up with your primary care physician in the next few days. I am giving him a referral for a local front desk, Dr. Cruz, to follow up regarding your some conjunctival hemorrhage and your blurry vision. I am also giving you a referral for a local neurologist, Dr. Akers, to follow up regarding your headaches. Return to the emergency Department with any worsening of your symptoms or any acute distress. Take your blood pressure medications as prescribed. Please try and stay away from foods that are high in salt and caffeinated products. Keep a blood p ressure log. Referrals: CARYN MALONE MD [Primary Care Provider] - 2-3 Days JASSON AKERS MD [Referring] - 2-3 Days JOSE CRUZ CRUZ MD [Staff Physician] - 2-3 Days Time of Disposition: 17:17
[2019-06-08] MEDS ORDERED: K-DUR PO ONE (15:32)
[2019-06-08 16:15] VITALS: BP 152/84
[2019-06-08] MEDS ORDERED: MORPHINE IM ONE (16:21)
--- NOTE | 2019-06-08 16:28 | Cat Scan Report ---
CT BRAIN: 06/08/2019 INDICATION / CLINICAL INFORMATION: HELLER, right eye pain. COMPARISON: 04/10/2019 FINDINGS: BRAIN/INTRACRANIAL STRUCTURES: Unenhanced CT images of the brain demonstrate no evidence of acute int racranial abnormality. Ventricles and sulci are normal in size and shape. There is no evidence of hemorrhage or mass. There are no abnormal extra-axial fluid collections. EXTRACRANIAL STRUCTURES: Unremarkable. IMPRESSION: Negative unenhanced CT of the brain. There is been no change when compared to 04/10/2019. All CT scans at this location are performed using dose reduction to ALARA by means of automated expos ure control. Signer Name: Addison Lewis MD Signed: 06/08/2019 4:23 PM Workstation Name: [id number]
[2019-06-08 18:03] LABS: Basophils % (Manual) 0 % (0.0-1.8); Total Cells Counted 100
[2019-06-08 18:04] LABS: Hypochromasia 2+; Ovalocytes Few; Platelet Estimate Consistent w Auto; Target Cells Few
[2019-06-08 18:05] LABS: Anisocytosis 1+
[2019-06-08 18:07] LABS: Platelet Count 201 K/mm3 (140-440)
== END 2019-06-08 18:09 | disposition home or self-care (01) ==
LOC: ED 12:00
DX: H11.31 Conjunctival hemorrhage, right eye (principal); I10 Essential (primary) hypertension; F17.200 Nicotine dependence, unspecified, uncomplicated; Z79.899 Other long term (current) drug therapy
CPT/HCPCS: 36415; 70450; 80048; 85007; 85025; 96372; 99284; J2270

== ENCOUNTER 2019-10-25 17:03 | Emergency (ER) | payer OTHER ==
--- NOTE | 2019-10-25 17:22 | Event Note ---
ED Screening Note Date of service: 10/25/19 Time: 17:21 ED Screening Note: 49 y o f presents with upper abd pain with nausea and vomitting x 3 days This initial assessment/diagnostic orders/clinical plan/treatment(s) is/are subject to change based on patients health status, clinical progression and re- assessment by fellow clinical providers in the ED. Further treatment and workup at subsequent clinical providers discretion. Patient/guardian urged not to elope from the ED as their condition may be serious if not clinically assessed and managed. Initial orders include: labs pepcid, bentyl ivf?
[2019-10-25 17:55] LABS: Bacteria,Urine 1+ /HPF (Negative); Bilirubin,Urine NEG (Negative); Blood,Urine MOD (Negative); Color,Urine Yellow (Yellow); Mucus,Urine 3+ /HPF
[2019-10-25 18:03] LABS: Hematocrit 34.6 % (30.3-42.9); Hemoglobin 11.5 gm/dl (10.1-14.3); Mean Corpuscular HGB Conc 33 % (30-34); Red Blood Count 6.17 M/mm3 (3.65-5.03)
[2019-10-25 18:04] LABS: Mean Corpuscular Volume 56 fl (79-97); Platelet Count 163 K/mm3 (140-440); Red Cell Distribution Width 20.7 % (13.2-15.2)
[2019-10-25 18:26] LABS: Alanine Aminotransferase 12 units/L (7-56); Albumin 4.3 g/dL (3.9-5); BUN/Creatinine Ratio 14; Blood Urea Nitrogen 11 mg/dL (7-17); Calcium 9.5 mg/dL (8.4-10.2); Hemolysis Index 7
--- NOTE | 2019-10-25 18:28 | Emergency Department Report ---
ED Abdominal Pain HPI - General Chief Complaint: Abdominal Pain Stated Complaint: STOMACH PAIN Time Seen by Provider: 10/25/19 18:18 Source: patient Mode of arrival: Ambulatory Limitations: No Limitations - History of Present Illness Initial Comments: Patient is a 49-year-old female that presents when she will complaints of presents for epigastric pain, nausea and vomiting, elevated blood pressure. Patient states she has not taken her blood pressure medications for 3 days because she can't hold anything down. Patient states her pain is in her epig astric region. Patient denies vomiting blood. Patient states her pain is worsening. Patient states her epigastric pain as a 10 out of 10. Patient states that the pain is better with rest and worse with vomiting and movement and eating. MD Complaint: abdominal pain -: Sudden Location: epigastric Radiation: none Migration to: no migration Severity: severe Severity scale (0 -10): 10 Quality: stabbing Consistency: constant Improves With: rest Worsens With: eating, vomiting, movement Associated Symptoms: nausea, vomiting. denies: diarrhea, fever, chills, constipation, dysuria, hematemesis, hematochezia, melena, hematuria, anorexia, syncope Treatments Prior to Arrival: other - Related Data LMP (females 10-50): unknown Home Medications Medication Instructions Recorded Confirmed Last Taken Losartan [Cozaar] 1 tab PO DAILY 12/26/18 12/26/18 Unknown Metoprolol [Lopressor TAB] 50 mg PO DAILY 12/26/18 12/26/18 Unknown amLODIPine 20 mg PO DAILY 12/26/18 12/26/18 Unknown Previous Rx's Medication Instructions Recorded Last Taken Type Dicyclomine [Bentyl] 20 mg PO QID PRN #20 tablet 12/27/18 Unknown Rx Dicyclomine [Bentyl] 10 mg PO BID #30 capsule 01/05/19 Unknown Rx Famotidine [Pepcid] 20 mg PO BID #30 tablet 01/05/19 Unknown Rx Ondansetron [Zofran ODT TAB] 8 mg PO Q12HR #20 tab.rapdis 01/05/19 Unknown Rx Cyclobenzaprine [Flexeril] 10 mg PO QHS PRN #15 tablet 04/10/19 Unknown Rx Naproxen [Naprosyn] 500 mg PO BID #30 tablet 04/10/19 Unknown Rx Esomeprazole Magnesium [NexIUM] 40 mg PO QDAY #30 capsule. 10/25/19 Unknown Rx Ondansetron [Zofran ODT TAB] 4 mg PO Q6HR PRN #20 tab.rapdis 10/25/19 Unknown Rx Allergies Allergy/AdvReac Type Severity Reaction Status Date / Time No Known Allergies Allergy Verified 04/10/19 18:51 ED Review of Systems ROS: Stated complaint: STOMACH PAIN Other details as noted in HPI Comment: All other systems reviewed and negative Constitutional: denies: chills, fever Eyes: denies: eye pain, eye discharge, vision change ENT: denies: ear pain, throat pain Respiratory: denies: cough, shortness of breath, wheezing Cardiovascular: denies: chest pain, palpitations Endocrine: no symptoms reported Gastrointestinal: abdominal pain, nausea, vomiting. denies: diarrhea, constipation, hematemesis, melena Genitourinary: denies: urgency, dysuria, discharge Musculoskeletal: denies: back pain, joint swelling, arthralgia Skin: denies: rash, lesions Neurological: denies: headache, weakness, paresthesias Psychiatric: denies: anxiety, depression Hematological/Lymphatic: denies: easy bleeding, easy bruising ED Past Medical Hx - Past Medical History Previous Medical History?: Yes Hx Hypertension: Yes - Surgical History Past Surgical History?: Yes Additional Surgical History: right ovary - Family History Family history: no significant - Social History Smoking Status: Light Tobacco Smoker Substance Use Type: Alcohol - Medications Home Medications: Home Medications Medication Instructions Recorded Confirmed Last Taken Type Losartan [Cozaar] 1 tab PO DAILY 12/26/18 12/26/18 Unknown History Metoprolol [Lopressor TAB] 50 mg PO DAILY 12/26/18 12/26/18 Unknown History amLODIPine 20 mg PO DAILY 12/26/18 12/26/18 Unknown History Dicyclomine [Bentyl] 20 mg PO QID PRN #20 tablet 12/27/18 Unknown Rx Dicyclomine [Bentyl] 10 mg PO BID #30 capsule 01/05/19 Unknown Rx Famotidine [Pepcid] 20 mg PO BID #30 tablet 01/05/19 Unknown Rx Ondansetron [Zofran ODT TAB] 8 mg PO Q12HR #20 tab.rapdis 01/05/19 Unknown Rx Cyclobenzaprine [Flexeril] 10 mg PO QHS PRN #15 tablet 04/10/19 Unknown Rx Naproxen [Naprosyn] 500 mg PO BID #30 tablet 04/10/19 Unknown Rx Esomeprazole Magnesium [NexIUM] 40 mg PO QDAY #30 capsule. 10/25/19 Unknown Rx Ondansetron [Zofran ODT TAB] 4 mg PO Q6HR PRN #20 tab.rapdis 10/25/19 Unknown Rx ED Physical Exam - General Limitations: No Limitations General appearance: alert, in no apparent distress - Head Head exam: Present: atraumatic, normocephalic - Eye Eye exam: Present: normal appearance - ENT ENT exam: Present: mucous membranes moist - Neck Neck exam: Present: normal inspection - Respiratory Respiratory exam: Present: normal lung sounds bilaterally. Absent: respiratory distress - Cardiovascular Cardiovascular Exam: Present: regular rate, normal rhythm. Absent: systolic murmur, diastolic murmur, rubs, gallop - GI/Abdominal GI/Abdominal exam: Present: soft, tenderness (epigastric ttp), normal bowel sounds - Extremities Exam Extremities exam: Present: normal inspection - Back Exam Back exam: Present: normal inspection - Neurological Exam Neurological exam: Present: alert, oriented X3 - Psychiatric Psychiatric exam: Present: normal affect, normal mood - Skin Skin exam: Present: warm, dry, intact, normal color. Absent: rash ED Course Vital Signs 10/25/19 10/25/19 10/25/19 17:18 18:36 18:40 Temperature 98.2 F Pulse Rate 82 68 72 Respiratory 18 21 20 Rate Blood Pressure 235/109 Blood Pressure 181/67 [Right] O2 Sat by Pulse 98 98 96 Oximetry 10/25/19 10/25/19 10/25/19 18:45 18:46 18:48 Temperature Pulse Rate 72 72 Respiratory 20 12 Rate Blood Pressure 181/67 181/67 Blood Pressure [Right] O2 Sat by Pulse 97 Oximetry 10/25/19 10/25/19 10/25/19 19:08 19:15 19:31 Temperature Pulse Rate 80 94 H 88 Respiratory 11 L 18 15 Rate Blood Pressure 181/67 Blood Pressure [Right] O2 Sat by Pulse Oximetry 10/25/19 10/25/19 10/25/19 19:45 20:01 20:15 Temperature Pulse Rate Respiratory 15 15 17 Rate Blood Pressure 181/67 181/67 181/67 Blood Pressure [Right] O2 Sat by Pulse Oximetry 10/25/19 10/25/19 10/25/19 20:31 20:45 21:03 Temperature Pulse Rate Respiratory 19 17 Rate Blood Pressure 181/67 181/67 181/67 Blood Pressure [Right] O2 Sat by Pulse 96 Oximetry 10/25/19 10/25/19 10/25/19 21:15 21:30 21:45 Temperature Pulse Rate Respiratory 18 19 16 Rate Blood Pressure 181/67 168/71 168/71 Blood Pressure [Right] O2 Sat by Pulse 95 93 96 Oximetry 10/25/19 10/25/19 10/25/19 22:00 22:13 22:15 Temperature Pulse Rate Respiratory 18 14 18 Rate Blood Pressure 136/60 136/60 136/60 Blood Pressure [Right] O2 Sat by Pulse 94 99 98 Oximetry 10/25/19 10/25/19 10/25/19 22:30 22:45 23:00 Temperature Pulse Rate Respiratory 12 17 17 Rate Blood Pressure 142/64 142/64 161/74 Blood Pressure [Right] O2 Sat by Pulse 97 96 95 Oximetry 10/26/19 00:42 Temperature 98.2 F Pulse Rate 88 Respiratory 17 Rate Blood Pressure Blood Pressure 181/67 [Right] O2 Sat by Pulse 95 Oximetry - Reevaluation(s) Reevaluation #1: Nurses unable to obtain an IV. A right EJ was placed. See procedure note. 10/25/19 20:49 Reevaluation #2: Patient states she is feeling better. I discussed all results patient. Patient's blood pressure better. Patient states she has plenty of blood pressure medications at home. Patient tolerated by mouth intake. Patient given discharge instructions. Patient voiced understanding of discharge instructions. Patient is stable for discharge. Patient will be discharged home. 10/25/19 22:04 - EJ/Peripheral Line Neck R Time Out Performed: Yes Indications: nurses unable to establis Skin Cleansed in Sterile Fashion: Yes Size: 20 Dressing Placed: Tegaderm, tape Patient Tolerated Procedure: well, no complications ED Medical Decision Making - Lab Data Result diagrams: 10/25/19 17:43 10/25/19 17:43 - Radiology Data Radiology results: report reviewed CT ABDOMEN AND PELVIS WITH CONTRAST INDICATION / CLINICAL INFORMATION: N/V. ABD PAIN. TECHNIQUE: Axial CT images were obtained through the abdomen and pelvis after 100 mL Omnipaque [address] scans at this location are performed using CT dose reduction for ALARA by means of automated exposure control. COMPARISON: CT scan with contrast 12/26/2018 FINDINGS: LOWER CHEST: No significant abnormality. LIVER: No significant abnormality. BILIARY SYSTEM: No significant abnormality. PANCREAS: No significant abnormality. SPLEEN: No significant abnormality. ADRENALS: Stable, hypoattenuating left adrenal nodule, characteristic of an adenoma. Normal right adrenal. KIDNEYS and URETERS: No significant abnormality. STOMACH / BOWEL: No significant abnormality. Normal appendix. PERITONEUM: No free fluid. No free air. No fluid collection. LYMPH NODES: No adenopathy. VASCULAR STRUCTURES: No significant abnormality. URINARY BLADDER: No significant abnormality. REPRODUCTIVE ORGANS: Grossly unchanged appearance of small cystic lesions in the pelvis. A right lower uterine segment fibroid is again seen. ADDITIONAL FINDINGS: Small, fat-containing umbilical hernia without change. SKELETAL SYSTEM: No significant abnormality. IMPRESSION: 1. No acute abnormality. 2. Stable appearance of cystic structures at both adnexa E over multiple CT scans dating back to 09/19/2018. This suggests that these are not simply physiologic ovarian follicles. Possibility of hydrosalpinx should be considered. In any case, they are grossly stable. There is no associated acute inflammatory change. If clinically indicated, pelvic ultrasound could be used for further evaluation. - Medical Decision Making Patient is a 49-year-old female that presents emergency room with complaints of epigastric pain and nausea and vomiting. Patient findings are consistent with gastroenteritis. Patient's labs unremarkable. Patient's CT scan no acute findings. Patient tolerated by mouth intake after Zofran. Patient also found to be extremely hypertensive secondary to not being able to take her blood pressure medications patient given IV hydralazine and blood pressure improved. Patient's symptoms improved and patient responded well to treatment. Patient will be discharged home. - Differential Diagnosis gastroenteritis, nausea vomiting, pancreatitis, obstruction, noncompliance Critical Care Time: Yes Critical care time in (mins) excluding proc time.: 35 Critical care attestation.: If time is entered above; I have spent that time in minutes in the direct care of this critically ill patient, excluding procedure time. Critical Care Time: 35 minutes ED Disposition Clinical Impression: Noncompliance, Gastroenteritis, Hypertensive urgency, Essential hypertension Nausea & vomiting Qualifiers: Vomiting type: unspecified Vomiting Intractability: non-intractable Qualified Code(s): R11.2 - Nausea with vomiting, unspecified Abdominal pain Qualifiers: Abdominal location: epigastric Qualified Code(s): R10.13 - Epigastric pain Disposition: TO HOME OR SELFCARE Is pt being admited?: No Does the pt Need Aspirin: No Condition: Stable Instructions: Gastritis (ED), Diet for Ulcers and Gastritis (ED), Heart Healthy Diet (ED), How to Take a Blood Pressure (ED), Gastroenteritis (ED), Acute Nausea and Vomiting (ED), Abdominal Pain (ED), DASH Eating Plan (ED), Low Sodium Diet (ED), Hypertension (ED) Additional Instructions: Patient to follow up with primary care in 2-3 days. Patient to follow up with GI in 2-3 days. Patient to return to the ER if condition worsens, changes or new symptoms arise. Patient to eat a breakfast diet. Patient to take meds as directed. Patient to rest. Patient to increase water. Patient to restart blood pressure medications. Patient to monitor blood pressure at home. Patient to take blood pressure log to primary care follow-up. Prescriptions: Esomeprazole Magnesium [NexIUM] 40 mg PO QDAY #30 capsule. Ondansetron [Zofran ODT TAB] 4 mg PO Q6HR PRN #20 tab.rapdis PRN Reason: Nausea And Vomiting Referrals: LEAH THOMASON MD [Primary Care Provider] - 2-3 Days PAOLA PECK MD [Staff Physician] - 2-3 Days Forms: Work/School Release Form(ED) Time of Disposition: 22:09
[2019-10-25] MEDS ORDERED: hydrALAZINE 20 MG/1 ML INJ IV ONE (18:29)
[2019-10-25] MEDS ORDERED: HYDROmorphone 1 MG/1 ML INJ IV ONE (18:29)
[2019-10-25] MEDS ORDERED: ONDANSETRON 4 MG/2 ML INJ IV ONE (18:29)
[2019-10-25 18:38] LABS: Total Cells Counted 100
[2019-10-25 18:39] LABS: Basophils % (Manual) 0 % (0.0-1.8)
[2019-10-25 18:40] LABS: Anisocytosis 1+; Ovalocytes Few; Platelet Estimate Consistent w Auto; Target Cells 1+
[2019-10-25 18:41] LABS: Hypochromasia 1+; Tear Drop Cells Rare
--- NOTE | 2019-10-25 21:52 | Cat Scan Report ---
CT ABDOMEN AND PELVIS WITH CONTRAST INDICATION / CLINICAL INFORMATION: N/V. ABD PAIN. TECHNIQUE: Axial CT images were obtained through the abdomen and pelvis after 100 mL Omnipaque [address] scans at this location are performed using CT dose reduction for ALARA by means of automated exposure control. COMPARISON: CT scan with contrast 12/26/2018 FINDINGS: LOWER CHEST: No significant abnormality. LIVER: No significant abnormality. BILIARY SYSTEM: No significant abnormality. PANCREAS: No significant abnormality. SPLEEN: No significant abnormality. ADRENALS: Stable, hypoattenuating left adrenal nodule, characteristic of an adenoma. Normal right adr enal. KIDNEYS and URETERS: No significant abnormality. STOMACH / BOWEL: No significant abnormality. Normal appendix. PERITONEUM: No free fluid. No free air. No fluid collection. LYMPH NODES: No adenopathy. VASCULAR STRUCTURES: No significant abnormality. URINARY BLADDER: No significant abnormality. REPRODUCTIVE ORGANS: Grossly unchanged appearance of small cystic lesions in the pelvis. A right lowe r uterine segment fibroid is again seen. ADDITIONAL FINDINGS: Small, fat-containing umbilical hernia without change. SKELETAL SYSTEM: No significant abnormality. IMPRESSION: 1. No acute abnormality. 2. Stable appearance of cystic structures at both adnexa E over multiple CT scans dating back to . This suggests that these are not simply physiologic ovarian follicles. Possibility of hydros alpinx should be considered. In any case, they are grossly stable. There is no associated acute infla mmatory change. If clinically indicated, pelvic ultrasound could be used for further evaluation. Signer Name: Angelo James MD Signed: 10/25/2019 9:48 PM Workstation Name: [id number]
[2019-10-25] MEDS ORDERED: SODIUM CHLORIDE 0.9% 1000 ML 1,000 ML IV ONE (22:03)
[2019-10-26 00:44] VITALS: BP 181/67
== END 2019-10-26 00:42 | disposition home or self-care (01) ==
LOC: ED 17:03
DX: K52.9 Noninfective gastroenteritis and colitis, unspecified (principal); I16.0 Hypertensive urgency; I10 Essential (primary) hypertension; F17.200 Nicotine dependence, unspecified, uncomplicated; Z79.899 Other long term (current) drug therapy
CPT/HCPCS: 36415; 74177; 80053; 81001; 83690; 84703; 85007; 85025; 87086; 96361; 96374; 96375; 99284; J0360; J1170; J2405; J7030; Q9967

== ENCOUNTER 2020-03-09 19:59 | Emergency (ER) | payer BC ==
--- NOTE | 2020-03-09 20:25 | Emergency Department Report ---
Blank Doc - Documentation Documentation: 49-year-old female that presents with left sided chest pain with radiation to left shoulder. Pain with breathing. This initial assessment/diagnostic orders/clinical plan/treatment(s) is/are subject to change based on patient's health status, clinical progression and re-assessment by fellow clinical providers in the ED. Further treatment and workup at subsequent clinical providers discretion. Patient/guardians urged not to elope from the ED as their condition may be serious if not clinically assessed and managed. Initial orders include: 1- Patient sent to MAIN ED for further evaluation and treatment 2- cardiac workup
[2020-03-09 20:54] LABS: Basophils # (Auto) 0.1 K/mm3 (0.0-0.1); Basophils % (Auto) 0.8 % (0.0-1.8); Eosinophils # (Auto) 0.2 K/mm3 (0.0-0.4); Eosinophils % (Auto) 3.1 % (0.0-4.3); Hematocrit 36.7 % (30.3-42.9); Hemoglobin 11.5 gm/dl (10.1-14.3); Lymphocytes # (Auto) 1.6 K/mm3 (1.2-5.4); Lymphocytes % (Auto) 24.5 % (13.4-35.0); Mean Corpuscular HGB Conc 31 % (30-34); Monocytes # (Auto) 0.5 K/mm3 (0.0-0.8); Monocytes % (Auto) 7.6 % (0.0-7.3); Red Blood Count 6.48 M/mm3 (3.65-5.03)
[2020-03-09 20:59] LABS: Mean Corpuscular Volume 57 fl (79-97)
[2020-03-09 21:00] LABS: Red Cell Distribution Width 22.8 % (13.2-15.2)
[2020-03-09 21:04] LABS: INR 0.97 (0.87-1.13)
[2020-03-09 21:05] LABS: Partial Thromboplastin Time 30.3 Sec. (24.2-36.6)
--- NOTE | 2020-03-09 21:06 | XRay Report ---
CHEST 2 VIEWS INDICATION / CLINICAL INFORMATION: Chest Pain. COMPARISON: None available. FINDINGS: SUPPORT DEVICES: None. HEART / MEDIASTINUM: No significant abnormality. LUNGS / PLEURA: No significant pulmonary or pleural abnormality. No pneumothorax. ADDITIONAL FINDINGS: No significant additional findings. IMPRESSION: 1. No acute findings. Signer Name: Steven Bradford MD Signed: 03/09/2020 9:02 PM Workstation Name: [id number]
[2020-03-09 21:18] LABS: Alanine Aminotransferase 16 units/L (7-56); Albumin 3.7 g/dL (3.9-5); BUN/Creatinine Ratio 16; Blood Urea Nitrogen 11 mg/dL (7-17); Calcium 9.1 mg/dL (8.4-10.2); Hemolysis Index 3
[2020-03-09 21:44] LABS: Platelet Count 145 K/mm3 (140-440)
--- NOTE | 2020-03-09 22:55 | Emergency Department Report ---
ED Chest Pain HPI - General Chief Complaint: Chest Pain Stated Complaint: CHEST PAIN PUI?: No Time Seen by Provider: 03/09/20 22:43 Source: patient Mode of arrival: Ambulatory Limitations: No Limitations - History of Present Illness Initial Comments: Patient is a 49-year-old female that presents emergency room with complaints of bilateral chest pain that is been going on for 1 week. Patient states that she was admitted here on 26 February and she had chest pain since. Patient states that the chest pain is radiating to both sides her neck. Patient states the pain is worse with movement and palpation. Patient states the pain is unchanged with exertion. Patient states the pain is better with rest and remaining still. Patient states at her last visit she was placed on a seizure medication. Patient states she has not had any seizure activity since her last admission. Patient denies shortness of breath. Patient denies fever and chills. Patient denies nausea vomiting. Patient denies loss of consciousness. Patient denies falls. Patient denies recent travel. Patient denies recent international travel. Patient denies exposure to the novel coronavirus. Patient denies sick contacts. Patient denies fever and chills. Patient denies cough. Patient denies diarrhea. Patient denies coming in contact with anybody with symptoms of the novel coronavirus. MD Complaint: chest pain -: Sudden Pain Location: substernal, left chest, right chest Severity scale (0 -10): 6 Quality: tightness Consistency: constant Improves With: rest Worsens With: palpation, movement re: denies: nausea, vomting, diaphoresis, dyspnea, sense of impending doom Other Symptoms: denies: cough, fever, rash, acid taste in mouth, leg swelling, palpitations, burping Treatments Prior to Arrival: none Aspirin use within the Past 7 Days: (0) No - Related Data On Oral Contraceptives: No Home Medications Medication Instructions Recorded Confirmed Last Taken Losartan [Cozaar] 1 tab PO DAILY 12/26/18 02/28/20 02/17/20 amLODIPine 20 mg PO DAILY 12/26/18 02/28/20 02/17/20 Previous Rx's Medication Instructions Recorded Last Taken Type Esomeprazole Magnesium [NexIUM] 40 mg PO QDAY #30 capsule. 10/25/19 02/16/20 Rx Metoprolol [Lopressor TAB] 50 mg PO DAILY #30 02/17/20 Unknown Rx amLODIPine 10 mg PO DAILY #30 tablet 02/17/20 Unknown Rx hydroCHLOROthiazide [HCTZ] 25 mg PO DAILY #30 tablet 02/17/20 Unknown Rx levETIRAcetam [Keppra TAB] 750 mg PO BID #60 tablet 03/01/20 Unknown Rx levoFLOXacin [Levaquin TAB] 500 mg PO QDAY #7 tablet 03/01/20 Unknown Rx methylPREDNISolone [Medrol 4MG 4 mg PO DAILY 6 Days #1 tab.ds.pk 03/09/20 Unknown Rx DOSEPAK (21 tabs)] Allergies Allergy/AdvReac Type Severity Reaction Status Date / Time No Known Allergies Allergy Verified 04/10/19 18:51 Heart Score - HEART Score History: Slightly suspicious EKG: Normal Age: 45-65 Risk factors: No known risk factors Troponin: < normal limit HEART Score: 1 ED Review of Systems ROS: Stated complaint: CHEST PAIN Other details as noted in HPI Constitutional: denies: chills, fever Eyes: denies: eye pain, eye discharge, vision change ENT: denies: ear pain, throat pain Respiratory: denies: cough, shortness of breath, wheezing Cardiovascular: chest pain. denies: palpitations Endocrine: no symptoms reported Gastrointestinal: denies: abdominal pain, nausea, diarrhea Genitourinary: denies: urgency, dysuria, discharge Musculoskeletal: denies: back pain, joint swelling, arthralgia Skin: denies: rash, lesions Neurological: denies: headache, weakness, paresthesias Psychiatric: denies: anxiety, depression Hematological/Lymphatic: denies: easy bleeding, easy bruising ED Past Medical Hx - Past Medical History Previous Medical History?: Yes Hx Hypertension: Yes Hx COPD: Yes Additional medical history: Seizure - Surgical History Past Surgical History?: Yes Additional Surgical History: right ovary removal (2014) - Family History Family history: no significant - Social History Smoking Status: Current Every Day Smoker Substance Use Type: Alcohol - Medications Home Medications: Home Medications Medication Instructions Recorded Confirmed Last Taken Type Losartan [Cozaar] 1 tab PO DAILY 12/26/18 02/28/20 02/17/20 History amLODIPine 20 mg PO DAILY 12/26/18 02/28/20 02/17/20 History Esomeprazole Magnesium [NexIUM] 40 mg PO QDAY #30 capsule. 10/25/19 02/28/2020 Rx Metoprolol [Lopressor TAB] 50 mg PO DAILY #30 02/17/20 02/28/20 Unknown Rx amLODIPine 10 mg PO DAILY #30 tablet 02/17/20 02/28/20 Unknown Rx hydroCHLOROthiazide [HCTZ] 25 mg PO DAILY #30 tablet 02/17/20 02/28/20 Unknown Rx levETIRAcetam [Keppra TAB] 750 mg PO BID #60 tablet 03/01/20 Unknown Rx levoFLOXacin [Levaquin TAB] 500 mg PO QDAY #7 tablet 03/01/20 Unknown Rx methylPREDNISolone [Medrol 4MG 4 mg PO DAILY 6 Days #1 tab.ds.pk 03/09/20 Unknown Rx DOSEPAK (21 tabs)] ED Physical Exam - General Limitations: No Limitations General appearance: alert, in no apparent distress - Head Head exam: Present: atraumatic, normocephalic - Eye Eye exam: Present: normal appearance - ENT ENT exam: Present: mucous membranes moist - Neck Neck exam: Present: normal inspection - Respiratory Respiratory exam: Present: normal lung sounds bilaterally, chest wall tenderness. Absent: respiratory distress, wheezes, rales, rhonchi, accessory muscle use, decreased breath sounds, prolonged expiratory - Cardiovascular Cardiovascular Exam: Present: regular rate, normal rhythm. Absent: systolic murmur, diastolic murmur, rubs, gallop - GI/Abdominal GI/Abdominal exam: Present: soft, normal bowel sounds - Extremities Exam Extremities exam: Present: normal inspection - Back Exam Back exam: Present: normal inspection - Neurological Exam Neurological exam: Present: alert, oriented X3 - Psychiatric Psychiatric exam: Present: normal affect, normal mood - Skin Skin exam: Present: warm, dry, intact, normal color. Absent: rash ED Course Vital Signs 03/09/20 20:16 Temperature 98.7 F Pulse Rate 79 Respiratory 18 Rate Blood Pressure 193/94 [Right] O2 Sat by Pulse 100 Oximetry - Reevaluation(s) Reevaluation #1: Patient states her chest pain is better. Patient states she is ready to go. Patient states she has plenty of blood pressure medication she just needs to take her night medications. I discussed all results and clinical findings with patient. I discussed plan of care with patient. Patient agrees with plan of care. Patient is stable for discharge. Patient will be discharged home. Patient given discharge instructions. Patient voiced understanding of discharge instructions. 03/09/20 23:49 KYLE score - Kyle Score Age > 65: (0) No Aspirin use within the Past 7 Days: (0) No 3 or more CAD Risk Factors: (0) No 2 or more Angina events in past 24 hrs: (0) No Known CAD with more than 50% Stenosis: (0) No Elevated Cardiac Markers: (0) No ST Deviation Greater than 0.5mm: (0) No KYLE Score: 0 ED Medical Decision Making - Lab Data Result diagrams: 03/09/20 20:34 03/09/20 20:34 - EKG Data -: EKG Interpreted by Me EKG shows normal: sinus rhythm, axis, intervals, QRS complexes, ST-T waves Rate: normal - Radiology Data Radiology results: report reviewed, image reviewed CHEST 2 VIEWS INDICATION / CLINICAL INFORMATION: Chest Pain. COMPARISON: None available. FINDINGS: SUPPORT DEVICES: None. HEART / MEDIASTINUM: No significant abnormality. LUNGS / PLEURA: No significant pulmonary or pleural abnormality. No pneumothorax. ADDITIONAL FINDINGS: No significant additional findings. IMPRESSION: 1. No acute findings. - Medical Decision Making Patient is a 49-year-old female that presents emergency room with complaints of chest pain. Patient's chest pain going on for a week. Patient EKG is negative. Patient's labs are essentially unremarkable. Patient's troponin is negative. Patient's chest x-ray is negative for acute findings. Patient's clinical exam is consistent with chest wall pain. Patient's chest wall pain is reproducible with palpation of the anterior chest, palpation of the anterior chest also reproduces symptoms. Patient is stable for discharge. Patient was given Solu- Medrol IM prior to discharge and her chest pain improved. Patient given discharge instructions. Patient will be discharged home with a Solu-Medrol Dosepak. - Differential Diagnosis Chest pain, chest wall pain, musculoskeletal, Critical care attestation.: If time is entered above; I have spent that time in minutes in the direct care of this critically ill patient, excluding procedure time. ED Disposition Clinical Impression: Chest wall pain, Costochondritis, Uncontrolled hypertension Chest pain Qualifiers: Chest pain type: unspecified Qualified Code(s): R07.9 - Chest pain, unspecified Hypertension Qualifiers: Hypertension type: essential hypertension Qualified Code(s): I10 - Essential (primary) hypertension Disposition: DC-01 TO HOME OR SELFCARE Is pt being admited?: No Does the pt Need Aspirin: No Condition: Stable Instructions: Chest Pain (ED), Heart Healthy Diet (ED), Costochondritis (ED), How to Take a Blood Pressure (ED), DASH Eating Plan (ED), Low Sodium Diet (ED), Hypertension (ED) Additional Instructions: Patient to follow-up with primary care in 2 to 3 days. Patient to rest. Patient to increase water. Patient to avoid strenuous exercise or heavy lifting until cleared by primary care.. Patient to take Tylenol or ibuprofen as needed for pain. Patient to take meds as directed. Patient to return to the ER if co ndition worsens, changes or new symptoms arise. Prescriptions: methylPREDNISolone [Medrol 4MG DOSEPAK (21 tabs)] 4 mg PO DAILY 6 Days #1 tab.ds.pk Referrals: PRIMARY CARE, [Primary Care Provider] - 2-3 Days Time of Disposition: 23:24
[2020-03-09] MEDS ORDERED: methylPREDNISolone Sod Succinate 125 MG/2 ML INJ IM ONE (23:09)
[2020-03-10 01:09] VITALS: BP 136/82
== END 2020-03-09 22:48 | disposition home or self-care (01) ==
LOC: ED 19:59
DX: M94.0 Chondrocostal junction syndrome [Tietze] (principal); R07.89 Other chest pain; I10 Essential (primary) hypertension; J44.9 Chronic obstructive pulmonary disease, unspecified; F17.200 Nicotine dependence, unspecified, uncomplicated; Z98.890 Other specified postprocedural states; Z79.899 Other long term (current) drug therapy
CPT/HCPCS: 36415; 71046; 80053; 84484; 85025; 85610; 85730; 93005; 96372; 99284; J2930

== ENCOUNTER 2020-06-04 12:18 | Emergency (ER) | payer BC ==
[2020-06-04 12:36] VITALS: BP 197/82
[2020-06-04] MEDS ORDERED: LIDOCAINE (1%) 10 MG/1 ML VIAL 20 ML MDV INFILTRATI ONE (14:45)
[2020-06-04] MEDS ORDERED: BUPIVACAINE/PF (0.5%) 5 MG/1 ML 10 ML VIAL INFILTRATI ONE (14:45)
[2020-06-04] MEDS ORDERED: HYDROcodone/ACETAMINOPHEN 5-325 MG TAB PO ONE (14:45)
--- NOTE | 2020-06-04 16:02 | Emergency Department Report ---
- General Chief Complaint: Wound/Laceration Stated Complaint: LFT THUMB LAC/BLEEDING/PAIN Time Seen by Provider: 06/04/20 14:06 Source: patient Mode of arrival: Ambulatory Limitations: No Limitations - History of Present Illness Initial Comments: Patient is a 49-year-old female presents emergency room with complaints of a left thumb laceration that occurred around 11 AM today. 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 She states initially there was bleeding but it has since improved. She denies any pain in the finger just pain where the cut is. She is able to fully move the finger. She is unsure of her last tetanus immunization. She denies any numbness or weakness. She denies ever injuring this time in the past. Has a past medical history of hypertension. No allergies to medications. According to patient's medical record, she had a tetanus immunization in 2018. - Related Data Home Medications Medication Instructions Recorded Confirmed Last Taken Losartan [Cozaar] 1 tab PO DAILY 12/26/18 02/28/20 02/17/20 amLODIPine 20 mg PO DAILY 12/26/18 02/28/20 02/17/20 Previous Rx's Medication Instructions Recorded Last Taken Type Esomeprazole Magnesium [NexIUM] 40 mg PO QDAY #30 capsule. 10/25/19 02/16/20 Rx Metoprolol [Lopressor TAB] 50 mg PO DAILY #30 02/17/20 Unknown Rx amLODIPine 10 mg PO DAILY #30 tablet 02/17/20 Unknown Rx hydroCHLOROthiazide [HCTZ] 25 mg PO DAILY #30 tablet 02/17/20 Unknown Rx levETIRAcetam [Keppra TAB] 750 mg PO BID #60 tablet 03/01/20 Unknown Rx levoFLOXacin [Levaquin TAB] 500 mg PO QDAY #7 tablet 03/01/20 Unknown Rx methylPREDNISolone [Medrol 4MG 4 mg PO DAILY 6 Days #1 tab.ds.pk 03/09/20 Unknow n Rx DOSEPAK (21 tabs)] Acetaminophen [Acetaminophen 8 650 mg PO Q8H PRN #12 tablet.er 03/17/20 Unknown Rx Hour] Ondansetron [Zofran Odt] 4 mg PO Q8HR PRN #12 tab.rapdis 03/17/20 Unknown Rx Naproxen [EC-Naprosyn] 500 mg PO BID PRN #14 tablet. 06/04/20 Unknown Rx cephALEXin [Keflex] 500 mg PO QID 7 Days #28 cap 06/04/20 Unknown Rx Allergies Allergy/AdvReac Type Severity Reaction Status Date / Time No Known Allergies Allergy Verified 04/10/19 18:51 ED Review of Systems ROS: Stated complaint: LFT THUMB LAC/BLEEDING/PAIN Other details as noted in HPI Comment: All other systems reviewed and negative ED Past Medical Hx - Past Medical History Previous Medical History?: Yes Hx Hypertension: Yes Hx COPD: Yes Additional medical history: Seizure - Surgical History Additional Surgical History: right ovary removal (2014) - Social History Smoking Status: Current Every Day Smoker Substance Use Type: None - Medications Home Medications: Home Medications Medication Instructions Recorded Confirmed Last Taken Type Losartan [Cozaar] 1 tab PO DAILY 12/26/18 02/28/20 02/17/20 History amLODIPine 20 mg PO DAILY 12/26/18 02/28/20 02/17/20 History Esomeprazole Magnesium [NexIUM] 40 mg PO QDAY #30 capsule. 10/25/19 02/28/20 02/16/20 Rx Metoprolol [Lopressor TAB] 50 mg PO DAILY #30 02/17/20 02/28/20 Unknown Rx amLODIPine 10 mg PO DAILY #30 tablet 02/17/20 02/28/20 Unknown Rx hydroCHLOROthiazide [HCTZ] 25 mg PO DAILY #30 tablet 02/17/20 02/28/20 Unknown Rx levETIRAcetam [Keppra TAB] 750 mg PO BID #60 tablet 03/01/20 Unknown Rx levoFLOXacin [Levaquin TAB] 500 mg PO QDAY #7 tablet 03/01/20 Unknown Rx methylPREDNISolone [Medrol 4MG 4 mg PO DAILY 6 Days #1 tab.ds.pk 03/09/20 Unknown Rx DOSEPAK (21 tabs)] Acetaminophen [Acetaminophen 8 650 mg PO Q8H PRN #12 tablet.er 03/17/20 Unknown Rx Hour] Ondansetron [Zofran Odt] 4 mg PO Q8HR PRN #12 tab.rapdis 03/17/20 Unknown Rx Naproxen [EC-Naprosyn] 500 mg PO BID PRN #14 tablet. 06/04/20 Unknown Rx cephALEXin [Keflex] 500 mg PO QID 7 Days #28 cap 06/04/20 Unknown Rx ED Physical Exam - General Limitations: No Limitations General appearance: alert, in no apparent distress - Head Head exam: Present: atraumatic, normocephalic - Eye Eye exam: Present: normal appearance - ENT ENT exam: Present: mucous membranes moist - Extremities Exam Extremities exam: Present: other (2 cm laceration present to the left thumb, only involves the skin layers, no foreign body, no muscle/tendon involvement, no active bleeding, FROM of the left hand and digits, neurovascularly intact) - Neurological Exam Neurological exam: Present: alert, oriented X3 - Psychiatric Psychiatric exam: Present: normal affect, normal mood - Skin Skin exam: Present: warm, dry ED Course Vital Signs 06/04/20 06/04/20 12:35 15:54 Temperature 98 F Pulse Rate 87 Respiratory 16 18 Rate Blood Pressure 197/82 [Right] O2 Sat by Pulse 100 Oximetry - Laceration /Wound Repair Left Palm Finger Wound Location: upper extremity (left palmar thumb) Wound Length (cm): 2 Wound's Depth, Shape: superficial, flap (curved) Wound Explored: clean Irrigated w/ Saline (ccs): 100 Betadine Prep?: Yes Volume Anesthetic (ccs): 8 (50/50 mix of 1% lidocaine without epi, and 0.5% bupivacaine without epi, digital block) Wound Debrided: extensive Wound Repaired With: sutures Suture Size/Type: 4:0, proline Number of Sutures: 4 Layer Closure?: No Sterile Dressing Applied?: Yes Progress: Wound irrigated with saline and thoroughly scrubbed with Betadine, no muscle or tendon involvement, no foreign body, very superficial only involves the skin layers, digital block performed and aspirated to ensure not in the vessel, no vessel involvement, 8 cc of 50-50 mixture of 1% lidocaine without epinephrine and 0.5% bupivacaine without epinephrine, good anesthesia achieved, Betadine prep again, sterile drapes applied, 4-0 Prolene used for skin closure, 4 sutures placed, patient tolerated well, no complications, bleeding controlled, sterile dressing applied ED Medical Decision Making - Medical Decision Making Patient is a 49-year-old female presents emergency room with complaints of a left thumb laceration that occurred around 11 AM today. 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 She states initially there was bleeding but it has since improved. She denies any pain in the finger just pain where the cut is. She is able to fully move the finger. She is unsure of her last tetanus immunization. She denies any numbness or weakness. She denies ever injuring this time in the past. Has a past medical history of hypertension. No allergies to medications. According to patient's medical record, she had a tetanus immunization in 2018. on exam: 2 cm laceration present to the left thumb, only involves the skin layers, no foreign body, no muscle/tendon involvement, no active bleeding, FROM of the left hand and digits, neurovascularly intact. Patient given pain medication while in the ED as she did not drive. Laceration repaired per procedure note without complications. Patient given prescription for Keflex and naproxen. Advised patient to please take medication as prescribed. Please keep area clean, dry, covered. May wash with antibacterial soap and water twice a day and pat dry. No hot tub, no pool, no soaking in water. Sutures will need to be removed in the next 10 days. Follow-up with her primary care doctor for reexamination. Return the emergency room immediately for any new or worsening symptoms or any signs of infection. Critical care attestation.: If time is entered above; I have spent that time in minutes in the direct care of this critically ill patient, excluding procedure time. ED Disposition Clinical Impression: Laceration of left thumb Qualifiers: Encounter type: initial encounter Damage to nail status: without damage Foreign body presence: without foreign body Qualified Code(s): S61.012A - Laceration without foreign body of left thumb without damage to nail, initial encounter Disposition: DC-01 TO HOME OR SELFCARE Is pt being admited?: No Does the pt Need Aspirin: No Condition: Stable Instructions: Suture Care (ED), Laceration (ED) Additional Instructions: please take medication as prescribed. Please keep area clean, dry, covered. May wash with antibacterial soap and water twice a day and pat dry. No hot tub, no pool, no soaking in water. Sutures will need to be removed in the next 10 days. Follow-up with her primary care doctor for reexamination. Return the emergency room immediately for any new or worsening symptoms or any signs of infection. Prescriptions: Naproxen [EC-Naprosyn] 500 mg PO BID PRN #14 tablet.dr PRN Reason: pain cephALEXin [Keflex] 500 mg PO QID 7 Days #28 cap Referrals: PRIMARY CARE, [Primary Care Provider] - 2-3 Days Forms: Work/School Release Form(ED) Time of Disposition: 16:30 Print Language: INDIAN
== END 2020-06-04 17:30 | disposition home or self-care (01) ==
LOC: ED 12:18
DX: S61.012A Laceration without foreign body of left thumb without damage to nail, initial encounter (principal); I10 Essential (primary) hypertension; J44.9 Chronic obstructive pulmonary disease, unspecified; F17.200 Nicotine dependence, unspecified, uncomplicated; Z98.890 Other specified postprocedural states; Z86.69 Personal history of other diseases of the nervous system and sense organs; Z79.899 Other long term (current) drug therapy; W26.8XXA Contact with other sharp object(s), not elsewhere classified, initial encounter; Y93.89 Activity, other specified; Y92.89 Other specified places as the place of occurrence of the external cause; Y99.8 Other external cause status

== ENCOUNTER 2020-06-27 23:52 | Emergency (ER) | payer BC ==
[2020-06-28] MEDS ORDERED: levETIRAcetam 1000 MG/NS 0.75% 1,000 MG/100 ML BAG IV ONE (00:17)
[2020-06-28] MEDS ORDERED: KETOROLAC 30 MG/1 ML INJ IV ONE (00:27)
--- NOTE | 2020-06-28 00:27 | Emergency Department Report ---
ED Seizure HPI - General Chief Complaint: Seizure Stated Complaint: SEIZURE Time Seen by Provider: 06/28/20 00:14 Source: patient, EMS, old records reviewed Mode of arrival: Ambulatory Limitations: No Limitations - History of Present Illness Initial Comments: 49-year-old female the past medical history of hypertension and seizures presents to the hospital status post seizure. As per triage patient apparently had a seizure that lasted less than 2 minutes. Patient does not recall the episode. She complains of 10 out of 10 right-sided frontal headache but denies blurred vision, focal weakness, focal numbness, nausea, or vomiting. Patient has been noncompliant with both her seizure medication and blood pressure medication. She presents hypertensive. Patient cannot recall her meds. As per medical record patient was prescribed Keppra after admission for seizures here in February and previous BP medications were also on record. Patient has not taken any medication since her discharge prescriptions ran out. Last seizure was about 4 months ago. Patient was admitted here in February for seizures - Related Data Home Medications Medication Instructions Recorded Confirmed Last Taken Losartan [Cozaar] 1 tab PO DAILY 12/26/18 02/28/20 02/17/20 amLODIPine 20 mg PO DAILY 12/26/18 02/28/20 02/17/20 Previous Rx's Medication Instructions Recorded Last Taken Type Esomeprazole Magnesium [NexIUM] 40 mg PO QDAY #30 capsule. 10/25/19 02/16/20 Rx Metoprolol [Lopressor TAB] 50 mg PO DAILY #30 02/17/20 Unknown Rx levoFLOXacin [Levaquin TAB] 500 mg PO QDAY #7 tablet 03/01/20 Unknown Rx methylPREDNISolone [Medrol 4MG 4 mg PO DAILY 6 Days #1 tab.ds.pk 03/09/20 Unknown Rx DOSEPAK (21 tabs)] Acetaminophen [Acetaminophen 8 650 mg PO Q8H PRN #12 tablet.er 03/17/20 Unknown Rx Hour] Ondansetron [Zofran Odt] 4 mg PO Q8HR PRN #12 tab.rapdis 03/17/20 Unknown Rx Naproxen [EC-Naprosyn] 500 mg PO BID PRN #14 tablet. 06/04/20 Unknown Rx cephALEXin [Keflex] 500 mg PO QID 7 Days #28 cap 06/04/20 Unknown Rx Ibuprofen [Motrin] 800 mg PO Q8HR PRN #14 tablet 06/28/20 Unknown Rx amLODIPine 10 mg PO DAILY #30 tablet 06/28/20 Unknown Rx hydroCHLOROthiazide [HCTZ] 25 mg PO DAILY #30 tablet 06/28/20 Unknown Rx levETIRAcetam [Keppra TAB] 750 mg PO BID #60 tablet 06/28/20 Unknown Rx Allergies Allergy/AdvReac Type Severity Reaction Status Date / Time No Known Allergies Allergy Verified 04/10/19 18:51 ED Review of Systems ROS: Stated complaint: SEIZURE Other details as noted in HPI Comment: All other systems reviewed and negative ED Past Medical Hx - Past Medical History Previous Medical History?: Yes Hx Hypertension: Yes Hx Seizures: Yes Hx COPD: Yes Additional medical history: Seizure - Surgical History Past Surgical History?: Yes Additional Surgical History: right ovary removal (2014) - Social History Smoking Status: Current Every Day Smoker Substance Use Type: None - Medications Home Medications: Home Medications Medication Instructions Recorded Confirmed Last Taken Type Losartan [Cozaar] 1 tab PO DAILY 12/26/18 02/28/20 02/17/20 History amLODIPine 20 mg PO DAILY 12/26/18 02/28/20 02/17/20 History Esomeprazole Magnesium [NexIUM] 40 mg PO QDAY #30 capsule. 10/25/19 02/28/20 02/16/20 Rx Metoprolol [Lopressor TAB] 50 mg PO DAILY #30 02/17/20 02/28/20 Unknown Rx levoFLOXacin [Levaquin TAB] 500 mg PO QDAY #7 tablet 03/01/20 Unknown Rx methylPREDNISolone [Medrol 4MG 4 mg PO DAILY 6 Days #1 tab.ds.pk 03/09/20 Unknown Rx DOSEPAK (21 tabs)] Acetaminophen [Acetaminophen 8 650 mg PO Q8H PRN #12 tablet.er 03/17/20 Unknown Rx Hour] Ondansetron [Zofran Odt] 4 mg PO Q8HR PRN #12 tab.rapdis 03/17/20 Unknown Rx Naproxen [EC-Naprosyn] 500 mg PO BID PRN #14 tablet. 06/04/20 Unknown Rx cephALEXin [Keflex] 500 mg PO QID 7 Days #28 cap 06/04/20 Unknown Rx Ibuprofen [Motrin] 800 mg PO Q8HR PRN #14 tablet 06/28/20 Unknown Rx amLODIPine 10 mg PO DAILY #30 tablet 06/28/20 Unknown Rx hydroCHLOROthiazide [HCTZ] 25 mg PO DAILY #30 tablet 06/28/20 Unknown Rx levETIRAcetam [Keppra TAB] 750 mg PO BID #60 tablet 06/28/20 Unknown Rx ED Physical Exam - General Limitations: No Limitations - Other Other exam information: General: No acute distress Head: Atraumatic Eyes: normal appearance ENT: Moist mucous membranes Neck: Normal appearance, no midline tenderness Chest: Clear to auscultation bilaterally CV: Regular rate and rhythm Abdomen: Soft, normal bowel sounds, nontender, nondistended, no rebound or guarding Back: Normal inspection Extremity: Normal inspection, full range of motion Neuro: Alert O x 3, no facial asymmetry, speech clear, no gross motor sensory deficit Psych: Appropriate behavior Skin: No rash ED Course Vital Signs 06/28/20 06/28/20 06/28/20 00:44 01:08 02:02 Temperature 98.6 F Pulse Rate 66 74 Respiratory 16 16 Rate Blood Pressure 187/65 Blood Pressure 207/93 174/95 [Right] O2 Sat by Pulse 99 96 Oximetry ED Medical Decision Making - Lab Data Result diagrams: 06/28/20 00:25 06/28/20 00:25 Lab Results 06/28/20 06/28/20 06/28/20 Range/Units 00:25 00:25 00:25 WBC 7.0 (4.5-11.0) K/mm3 RBC 6.26 H (3.65-5.03) M/mm3 Hgb 12.1 (10.1-14.3) gm/dl Hct 38.6 (30.3-42.9) % MCV 62 L (79-97) fl MCH 19 L (28-32) pg MCHC 31 (30-34) % RDW 20.0 H (13.2-15.2) % Plt Count 138 L (140-440) K/mm3 Lymph % (Auto) 18.3 (13.4-35.0) % [place] % (Auto) 7.2 (0.0-7.3) % Eos % (Auto) 1.9 (0.0-4.3) % Baso % (Auto) 0.6 (0.0-1.8) % Lymph # (Auto) 1.3 (1.2-5.4) K/mm3 [place] # (Auto) 0.5 (0.0-0.8) K/mm3 Eos # (Auto) 0.1 (0.0-0.4) K/mm3 Baso # (Auto) 0.0 (0.0-0.1) K/mm3 Seg Neutrophils % 72.0 H (40.0-70.0) % Seg Neutrophils # 5.0 (1.8-7.7) K/mm3 Sodium 140 (137-145) mmol/L Potassium 3.8 (3.6-5.0) mmol/L Chloride 103.6 (98-107) mmol/L Carbon Dioxide 22 (22-30) mmol/L Anion Gap 18 mmol/L BUN 16 (7-17) mg/dL Creatinine 0.8 (0.6-1.2) mg/dL Estimated GFR > 60 ml/min BUN/Creatinine Ratio 20 % Glucose 95 (65-100) mg/dL POC Glucose (70-105) Calcium 9.2 (8.4-10.2) mg/dL Magnesium 2.00 (1.7-2.3) mg/dL HCG, Qual Negative (Negative) 06/28/20 Range/Units 00:51 WBC (4.5-11.0) K/mm3 RBC (3.65-5.03) M/mm3 Hgb (10.1-14.3) gm/dl Hct (30.3-42.9) % MCV (79-97) fl MCH (28-32) pg MCHC (30-34) % RDW (13.2-15.2) % Plt Count (140-440) K/mm3 Lymph % (Auto) (13.4-35.0) % [place] % (Auto) (0.0-7.3) % Eos % (Auto) (0.0-4.3) % Baso % (Auto) (0.0-1.8) % Lymph # (Auto) (1.2-5.4) K/mm3 [place] # (Auto) (0.0-0.8) K/mm3 Eos # (Auto) (0.0-0.4) K/mm3 Baso # (Auto) (0.0-0.1) K/mm3 Seg Neutrophils % (40.0-70.0) % Seg Neutrophils # (1.8-7.7) K/mm3 Sodium (137-145) mmol/L Potassium (3.6-5.0) mmol/L Chloride (98-107) mmol/L Carbon Dioxide (22-30) mmol/L Anion Gap mmol/L BUN (7-17) mg/dL Creatinine (0.6-1.2) mg/dL Estimated GFR ml/min BUN/Creatinine Ratio % Glucose (65-100) mg/dL POC Glucose 99 (70-105) Calcium (8.4-10.2) mg/dL Magnesium (1.7-2.3) mg/dL HCG, Qual (Negative) - Radiology Data Radiology results: report reviewed CT head/brain wo con INDICATION: Post seizure, now with RIGHT sided headache. Hypertension. TECHNIQUE: All CT scans at this location are performed using CT dose reduction for ALARA by means of automated exposure control. COMPARISON: 02/17/2020 FINDINGS: Visualized paranasal and mastoid sinuses are clear. Ventricles are symmetrical and normal in size. No mass, hemorrhage or other significant abnormality. IMPRESSION: 1. No acute abnormality. - Medical Decision Making Patient had a seizure today and presents hypertensive. She is been noncompliant with all her medication for several months. BP improving after clonidine 0.1 mg. Toradol provided for headache. CT head unremarkable. Headache likely caused by post seizure headache. As per medical record patient had complained of post seizure headaches in the past. Labs unremarkable. No further seizure activity after IV Keppra in the ED. Patient will be discharged home with a refill in her medication Critical Care Time: No Critical care attestation.: If time is entered above; I have spent that time in minutes in the direct care of this critically ill patient, excluding procedure time. ED Disposition Clinical Impression: Seizure, Headache, Noncompliance with medication regimen, Uncontrolled hyp ertension Disposition: DC-01 TO HOME OR SELFCARE Is pt being admited?: No Does the pt Need Aspirin: No Condition: Stable Instructions: Hypertension (ED), Recurrent Seizures Adult (ED) Additional Instructions: Take the medication as prescribed. Follow-up with your doctor or doctor/clinic provided. Return if symptoms worsen as indicated by your discharge instructions. Prescriptions: amLODIPine 10 mg PO DAILY #30 tablet hydroCHLOROthiazide [HCTZ] 25 mg PO DAILY #30 tablet levETIRAcetam [Keppra TAB] 750 mg PO BID #60 tablet Ibuprofen [Motrin] 800 mg PO Q8HR PRN #14 tablet PRN Reason: Pain , Severe (7-10) Referrals: DANNA ANDREA MD [Primary Care Provider] - 3-5 Days [facility] [Provider Group] - 3-5 Days Time of Disposition: 03:09
[2020-06-28] MEDS ORDERED: hydrALAZINE 20 MG/1 ML INJ IV ONE (00:57)
[2020-06-28 00:58] LABS: Basophils % (Auto) 0.6 % (0.0-1.8); Eosinophils # (Auto) 0.1 K/mm3 (0.0-0.4); Eosinophils % (Auto) 1.9 % (0.0-4.3); Hematocrit 38.6 % (30.3-42.9); Hemoglobin 12.1 gm/dl (10.1-14.3); Lymphocytes # (Auto) 1.3 K/mm3 (1.2-5.4); Lymphocytes % (Auto) 18.3 % (13.4-35.0); Mean Corpuscular HGB Conc 31 % (30-34); Monocytes # (Auto) 0.5 K/mm3 (0.0-0.8); Monocytes % (Auto) 7.2 % (0.0-7.3); Red Blood Count 6.26 M/mm3 (3.65-5.03)
[2020-06-28 00:59] LABS: BUN/Creatinine Ratio 20; Blood Urea Nitrogen 16 mg/dL (7-17); Calcium 9.2 mg/dL (8.4-10.2); Hemolysis Index 13; Mean Corpuscular Volume 62 fl (79-97); Platelet Count 138 K/mm3 (140-440)
[2020-06-28] MEDS ORDERED: cloNIDine 0.1 MG TAB PO ONE (01:05)
--- NOTE | 2020-06-28 01:49 | Cat Scan Report ---
CT head/brain wo con INDICATION: Post seizure, now with RIGHT sided headache. Hypertension. TECHNIQUE: All CT scans at this location are performed using CT dose reduction for ALARA by means of automated e xposure control. COMPARISON: 02/17/2020 FINDINGS: Visualized paranasal and mastoid sinuses are clear. Ventricles are symmetrical and normal in size. No mass, hemorrhage or other significant abnormality. IMPRESSION: 1. No acute abnormality. Signer Name: Melvin Ware MD Signed: 06/28/2020 1:44 AM Workstation Name: [id number]
[2020-06-28 02:03] VITALS: BP 174/95
== END 2020-06-28 03:46 | disposition home or self-care (01) ==
LOC: ED 23:52
DX: R56.9 Unspecified convulsions (principal); I10 Essential (primary) hypertension; J44.9 Chronic obstructive pulmonary disease, unspecified; F17.200 Nicotine dependence, unspecified, uncomplicated; Z79.899 Other long term (current) drug therapy
CPT/HCPCS: 36415; 70450; 80048; 82962; 83735; 84703; 85025; 96365; 96375; 99285; J1885; J1953

== ENCOUNTER 2020-07-01 13:49 | Emergency (ER) | payer BC ==
[2020-07-01] MEDS ORDERED: dexAMETHasone 4 MG/ML VIAL IM ONE (18:56)
[2020-07-01] MEDS ORDERED: ALBUTEROL 2.5 MG/3 ML NEBU IH ONE ×2 (18:56→21:36)
--- NOTE | 2020-07-01 19:12 | Emergency Department Report ---
ED General Adult HPI - General Chief complaint: Headache Stated complaint: WHEEZING/CHEST PAIN Time Seen by Provider: 07/01/20 18:55 Source: patient Mode of arrival: Ambulatory Limitations: No Limitations - History of Present Illness Initial comments: 49year -Irish female smoker with COPD presents emergency department complaining of cough congestion and wheezing in the last few days of an unknown etiology. Reports having no known history of asthma so does not have an inhaler and a respiratory medications at home. She reports having a productive cough with associated shortness of breath but no chest pain. No hemoptysis no hematemesis hematochezia no vomiting or diarrhea. Radiation: non-radiation Quality: dull Consistency: constant Improves with: none Worsens with: none Associated Symptoms: denies other symptoms. denies: chest pain, diaphoresis, loss of appetite, malaise, nausea/vomiting, rash, shortness of breath, syncope, weakness Treatments Prior to Arrival: none - Related Data Home Medications Medication Instructions Recorded Confirmed Last Taken Losartan [Cozaar] 1 tab PO DAILY 12/26/18 02/28/20 02/17/20 amLODIPine 20 mg PO DAILY 12/26/18 02/28/20 02/17/20 Previous Rx's Medication Instructions Recorded Last Taken Type Esomeprazole Magnesium [NexIUM] 40 mg PO QDAY #30 capsule. 10/25/19 02/16/20 Rx Metoprolol [Lopressor TAB] 50 mg PO DAILY #30 02/17/20 Unknown Rx levoFLOXacin [Levaquin TAB] 500 mg PO QDAY #7 tablet 03/01/20 Unknown Rx methylPREDNISolone [Medrol 4MG 4 mg PO DAILY 6 Days #1 tab.ds.pk 03/09/20 Unknown Rx DOSEPAK (21 tabs)] Acetaminophen [Acetaminophen 8 650 mg PO Q8H PRN #12 tablet.er 03/17/20 Unknown Rx Hour] Ondansetron [Zofran Odt] 4 mg PO Q8HR PRN #12 tab.rapdis 03/17/20 Unknown Rx Naproxen [EC-Naprosyn] 500 mg PO BID PRN #14 tablet. 06/04/20 Unknown Rx cephALEXin [Keflex] 500 mg PO QID 7 Days #28 cap 06/04/20 Unknown Rx Ibuprofen [Motrin] 800 mg PO Q8HR PRN #14 tablet 06/28/20 Unknown Rx amLODIPine 10 mg PO DAILY #30 tablet 06/28/20 Unknown Rx hydroCHLOROthiazide [HCTZ] 25 mg PO DAILY #30 tablet 06/28/20 Unknown Rx levETIRAcetam [Keppra TAB] 750 mg PO BID #60 tablet 06/28/20 Unknown Rx Albuterol Mdi (or & Nicu Only) 1 puff IH Q4-6H PRN #1 inha 07/01/20 Unknown Rx [ProAir HFA Inhaler] Azithromycin [Zithromax] 500 mg PO QDAY #5 tablet 07/01/20 Unknown Rx Montelukast [Singulair] 10 mg PO QPM #14 tablet 07/01/20 Unknown Rx predniSONE [Deltasone] 20 mg PO QDAY #5 tab 07/01/20 Unknown Rx Allergies Allergy/AdvReac Type Severity Reaction Status Date / Time No Known Allergies Allergy Verified 04/10/19 18:51 ED Review of Systems ROS: Stated complaint: WHEEZING/CHEST PAIN Other details as noted in HPI Comment: All other systems reviewed and negative ED Past Medical Hx - Past Medical History Previous Medical History?: Yes Hx Hypertension: Yes Hx Seizures: Yes Hx COPD: Yes Additional medical history: Seizure - Surgical History Past Surgical History?: Yes Additional Surgical History: right ovary removal (2014) - Social History Smoking Status: Current Every Day Smoker Substance Use Type: None - Medications Home Medications: Home Medications Medication Instructions Recorded Confirmed Last Taken Type Losartan [Cozaar] 1 tab PO DAILY 12/26/18 02/28/20 02/17/20 History amLODIPine 20 mg PO DAILY 12/26/18 02/28/20 02/17/20 History Esomeprazole Magnesium [NexIUM] 40 mg PO QDAY #30 capsule.dr 10/25/19 02/28/20 02/16/20 Rx Metoprolol [Lopressor TAB] 50 mg PO DAILY #30 02/17/20 02/28/20 Unknown Rx levoFLOXacin [Levaquin TAB] 500 mg PO QDAY #7 tablet 03/01/20 Unknown Rx methylPREDNISolone [Medrol 4MG 4 mg PO DAILY 6 Days #1 tab.ds.pk 03/09/20 Unknown Rx DOSEPAK (21 tabs)] Acetaminophen [Acetaminophen 8 650 mg PO Q8H PRN #12 tablet.er 03/17/20 Unknown Rx Hour] Ondansetron [Zofran Odt] 4 mg PO Q8HR PRN #12 tab.rapdis 03/17/20 Unknown Rx Naproxen [EC-Naprosyn] 500 mg PO BID PRN #14 tablet.dr 06/04/20 Unknown Rx cephALEXin [Keflex] 500 mg PO QID 7 Days #28 cap 06/04/20 Unknown Rx Ibuprofen [Motrin] 800 mg PO Q8HR PRN #14 tablet 06/28/20 Unknown Rx amLODIPine 10 mg PO DAILY #30 tablet 06/28/20 Unknown Rx hydroCHLOROthiazide [HCTZ] 25 mg PO DAILY #30 tablet 06/28/20 Unknown Rx levETIRAcetam [Keppra TAB] 750 mg PO BID #60 tablet 06/28/20 Unknown Rx Albuterol Mdi (or & Nicu Only) 1 puff IH Q4-6H PRN #1 inha 07/01/20 Unknown Rx [ProAir HFA Inhaler] Azithromycin [Zithromax] 500 mg PO QDAY #5 tablet 07/01/20 Unknown Rx Montelukast [Singulair] 10 mg PO QPM #14 tablet 07/01/20 Unknown Rx predniSONE [Deltasone] 20 mg PO QDAY #5 tab 07/01/20 Unknown Rx ED Physical Exam - General Limitations: No Limitations General appearance: alert, in no apparent distress - Head Head exam: Present: atraumatic, normocephalic - Eye Eye exam: Present: normal appearance, PERRL Pupils: Present: normal accommodation - ENT ENT exam: Present: normal exam, normal orophraynx, mucous membranes moist, TM's normal bilaterally - Neck Neck exam: Present: normal inspection, full ROM - Respiratory Respiratory exam: Present: normal lung sounds bilaterally, wheezes, rhonchi. Absent: respiratory distress, chest wall tenderness - Cardiovascular Cardiovascular Exam: Present: regular rate, normal rhythm. Absent: bradycardia, tachycardia, systolic murmur, diastolic murmur, rubs, gallop - GI/Abdominal GI/Abdominal exam: Present: soft, normal bowel sounds. Absent: distended, tenderness, guarding, rebound, hyperactive bowel sounds, hypoactive bowel sounds, organomegaly, mass - Extremities Exam Extremities exam: Present: normal inspection, full ROM, normal capillary refill. Absent: pedal edema, joint swelling - Back Exam Back exam: Present: normal inspection. Absent: CVA tenderness (R), CVA tenderness (L), muscle spasm - Neurological Exam Neurological exam: Present: alert, oriented X3, CN II-XII intact, normal gait. Absent: motor sensory deficit, reflexes normal - Psychiatric Psychiatric exam: Present: normal affect, normal mood. Absent: flat affect, manic - Skin Skin exam: Present: warm, dry, intact, normal color. Absent: rash, cyanosis, diaphoretic, erythema, petechiae, pallor, abrasion ED Course Vital Signs 07/01/20 20:08 Pulse Rate [ 80 Bilateral] Respiratory 20 Rate [Bilateral ] ED Medical Decision Making - Radiology Data Radiology results: report reviewed [facility] [address] [place] [address] XRay Report Signed Patient: JOJO BABCOCK MR#: [id number] : 1970 Acct:[id number] Age/Sex: 49 / F ADM Date: 07/01/20 Loc: ED Attending Dr: Ordering Physician: [place] PRICE Date of Service: 07/01/20 Procedure(s): XR chest routine 2V Accession Number(s): [id number] cc: [place] PRICE Fluoro Time In Minutes: CHEST 2 VIEWS INDICATION / CLINICAL INFORMATION: cough and chest pain. COMPARISON: 03/09/2020. FINDINGS: SUPPORT DEVICES: None. HEART / MEDIASTINUM: Stable. LUNGS / PLEURA: There is minimal airspace opacification in the right lung base may be projectional. Linear atelectasis versus scarring is seen within the left lung base. No pneumothorax. ADDITIONAL FINDINGS: No significant additional findings. IMPRESSION: 1. Minimal airspace opacification in the right lung base may be projectional, although developing pneumonitis cannot be excluded. Please correlate clinically. Signer Name: Didier Hamlin MD Signed: 07/01/2020 7:31 PM Workstation Name: [id number] Transcribed By: SS Dictated By: DIDIER HAMLIN Electronically Authenticated By: DIDIER HAMLIN Signed Date/Time: 07/01/201930 DD/ 28 TD/TT: - Medical Decision Making This patient presents with acute cough, most consistent with pneumonia, bronchitis, asthma. Differential diagnosis includes pneumonia, bronchitis, asthma, viral syndrome,. Presentation not consistent with acute bacterial pneumonia, influenza, asthma, transient airway hyperresponsiveness. Presentation not consistent with chronic causes of cough (including GERD, asthma, postnasal discharge, medication side effect, CHF, lung cancer or mass). Patient has suspicion and is for COVID-19 infection. Differential diagnosis includes other viral causes of lower respiratory symptoms, asthma, bronchitis. Certainly pneumonia is playing a role in the symptoms as well as the patient smoking and past medical history. Ms. Babcock is well-appearing with acceptable vitals, speaking in full sentences ambulatory stating that she feels much better with the provided treatment does request 1 more aerosol treatment prior to discharge as she states to hold her over until she can get to the pharmacy. She lacks known comorbidities with exception of smoking admission and a reassuring physical examination and is safe to be discharged home nasal swab for COVID testing is recommended. Provide strict return precautions and instructions on self isolation/quarantine and anticipatory guidance. Plan: CXR which showed some infiltrates to the right lobe, supportive care,, antibiotics, respiratory medications reassess This patient presents to the emergency department with fevers sensations associated with wheezing and and lower respiratory symptoms concerning for viral syndrome including flu and COVID-19. Critical care attestation.: If time is entered above; I have spent that time in minutes in the direct care of this critically ill patient, excluding procedure time. ED Disposition Clinical Impression: Cough, Pneumonia Disposition: DC-01 TO HOME OR SELFCARE Is pt being admited?: No Does the pt Need Aspirin: No Condition: Stable Instructions: Bacterial Pneumonia (ED) Prescriptions: predniSONE [Deltasone] 20 mg PO QDAY #5 tab Albuterol Mdi (or & Nicu Only) [ProAir HFA Inhaler] 1 puff IH Q4-6H PRN #1 inha PRN Reason: Cough Montelukast [Singulair] 10 mg PO QPM #14 tablet Azithromycin [Zithromax] 500 mg PO QDAY #5 tablet Referrals: DANNA ANDREA MD [Primary Care Provider] - 3-5 Days
--- NOTE | 2020-07-01 19:35 | XRay Report ---
CHEST 2 VIEWS INDICATION / CLINICAL INFORMATION: cough and chest pain. COMPARISON: 03/09/2020. FINDINGS: SUPPORT DEVICES: None. HEART / MEDIASTINUM: Stable. LUNGS / PLEURA: There is minimal airspace opacification in the right lung base may be projectional. L inear atelectasis versus scarring is seen within the left lung base. No pneumothorax. ADDITIONAL FINDINGS: No significant additional findings. IMPRESSION: 1. Minimal airspace opacification in the right lung base may be projectional, although developing pne umonitis cannot be excluded. Please correlate clinically. Signer Name: David Hamlin MD Signed: 07/01/2020 7:31 PM Workstation Name: [id number]
[2020-07-01] MEDS ORDERED: IPRATROPIUM/ALBUTEROL SULFATE 3 ML AMPUL.NEB IH ONE (20:57)
[2020-07-01] MEDS ORDERED: ACETAMINOPEN W/CODEINE 120-12MG ORAL LIQD 5 ML PO STA (20:57)
[2020-07-01] MEDS ORDERED: IPRATROPIUM 0.02% NEBU 2.5 ML IH ONE (21:36)
[2020-07-02 01:51] VITALS: BP 135/74
== END 2020-07-01 22:22 | disposition home or self-care (01) ==
LOC: ED 13:49
DX: J18.8 Other pneumonia, unspecified organism (principal); I10 Essential (primary) hypertension; J44.9 Chronic obstructive pulmonary disease, unspecified; F17.200 Nicotine dependence, unspecified, uncomplicated; Z79.899 Other long term (current) drug therapy; Z98.890 Other specified postprocedural states
CPT/HCPCS: 71046; 94640; 96372; 99283; J1100; 94644

== ENCOUNTER 2020-08-18 12:32 | Emergency (ER) | payer BC ==
[2020-08-18 14:25] VITALS: BP 182/100
--- NOTE | 2020-08-18 14:25 | Emergency Department Report ---
ED Back Pain/Injury HPI - General Chief Complaint: Back Pain/Injury Stated Complaint: BACK PAIN/HEADACHE Source: patient Limitations: No Limitations - History of Present Illness Initial Comments: The patient was evaluated in the emergency department for symptoms described in the history of present illness. He/she was evaluated in the context of the global COVID-19 pandemic, which necessitated consideration that the patient might be at risk for infection with the virus that causes COVID-19. Institutional protocols and algorithms that pertain to the evaluation of patients at risk for COVID-19 are in a state of rapid change based on information released by regulatory bodies including the CDC and federal and state organizations. These policies and algorithms were followed during the patient's care in the emergency department. Please note that these policies, procedures and recommendations changed on a rapid basis. 49-year-old -Maldivian female presents to the emergency room for 3-day history of left upper back and neck pain. Patient states that she has had no injury. She states that she woke up in the morning and started having some stiffness and pain that has progressively gotten worse. Patient states has been using [id number] heating pad Tylenol and bjmu-cct-hodxggq pain rub cream. Patient does have a history of seizure disorder and hypertension and is currently on amlodipine losartan metoprolol and Keppra. Patient does have a primary care provider Dr. Granados at the [facility]. Patient reports that she is in the middle of menopause. Last menstrual was 6 months ago. Complaint: back pain Onset/Timin -: days(s) Similar Symptoms Previously: No Radiation: none Severity: severe Quality: stabbing, aching Consistency: constant Improves With: none Worsens With: movement Context: unknown Associated Symptoms: denies other symptoms - Related Data Home Medications Medication Instructions Recorded Confirmed Last Taken Losartan [Cozaar] 1 tab PO DAILY 12/26/18 02/28/20 02/17/20 amLODIPine 20 mg PO DAILY 12/26/18 02/28/20 02/17/20 Previous Rx's Medication Instructions Recorded Last Taken Type Esomeprazole Magnesium [NexIUM] 40 mg PO QDAY #30 capsule. 10/25/19 02/16/20 Rx Metoprolol [Lopressor TAB] 50 mg PO DAILY #30 02/17/20 Unknown Rx levoFLOXacin [Levaquin TAB] 500 mg PO QDAY #7 tablet 03/01/20 Unknown Rx methylPREDNISolone [Medrol 4MG 4 mg PO DAILY 6 Days #1 tab.ds.pk 03/09/20 Unknown Rx DOSEPAK (21 tabs)] Acetaminophen [Acetaminophen 8 650 mg PO Q8H PRN #12 tablet.er 03/17/20 Unknown Rx Hour] Ondansetron [Zofran Odt] 4 mg PO Q8HR PRN #12 tab.rapdis 03/17/20 Unknown Rx Naproxen [EC-Naprosyn] 500 mg PO BID PRN #14 tablet.dr 06/04/20 Unknown Rx cephALEXin [Keflex] 500 mg PO QID 7 Days #28 cap 06/04/20 Unknown Rx Ibuprofen [Motrin] 800 mg PO Q8HR PRN #14 tablet 06/28/20 Unknown Rx amLODIPine 10 mg PO DAILY #30 tablet 06/28/20 Unknown Rx hydroCHLOROthiazide [HCTZ] 25 mg PO DAILY #30 tablet 06/28/20 Unknown Rx levETIRAcetam [Keppra TAB] 750 mg PO BID #60 tablet 06/28/20 Unknown Rx Albuterol Mdi (or & Nicu Only) 1 puff IH Q4-6H PRN #1 inha 07/01/20 Unknown Rx [ProAir HFA Inhaler] Azithromycin [Zithromax] 500 mg PO QDAY #5 tablet 07/01/20 Unknown Rx Montelukast [Singulair] 10 mg PO QPM #14 tablet 07/01/20 Unknown Rx predniSONE [Deltasone] 20 mg PO QDAY #5 tab 07/01/20 Unknown Rx Meloxicam [Mobic] 7.5 mg PO QDAY #10 tablet 08/18/20 Unknown Rx methOCARBAMOL [Robaxin TAB] 500 mg PO BID #20 tab 08/18/20 Unknown Rx Allergies Allergy/AdvReac Type Severity Reaction Status Date / Time No Known Allergies Allergy Verified 04/10/19 18:51 ED Review of Systems ROS: Stated complaint: BACK PAIN/HEADACHE Other details as noted in HPI Comment: All other systems reviewed and negative ED Past Medical Hx - Past Medical History Previous Medical History?: Yes Hx Hypertension: Yes Hx Seizures: Yes Hx COPD: Yes Additional medical history: Seizure - Surgical History Additional Surgical History: right ovary removal (2014) - Social History Smoking Status: Never Smoker Substance Use Type: None - Medications Home Medications: Home Medications Medication Instructions Recorded Confirmed Last Taken Type Losartan [Cozaar] 1 tab PO DAILY 12/26/18 02/28/20 02/17/20 History amLODIPine 20 mg PO DAILY 12/26/18 02/28/20 02/17/20 History Esomeprazole Magnesium [NexIUM] 40 mg PO QDAY #30 capsule. 10/25/19 02/28/20 02/16/20 Rx Metoprolol [Lopressor TAB] 50 mg PO DAILY #30 02/17/20 02/28/20 Unknown Rx levoFLOXacin [Levaquin TAB] 500 mg PO QDAY #7 tablet 03/01/20 Unknown Rx methylPREDNISolone [Medrol 4MG 4 mg PO DAILY 6 Days #1 tab.ds.pk 03/09/20 Unknown Rx DOSEPAK (21 tabs)] Acetaminophen [Acetaminophen 8 650 mg PO Q8H PRN #12 tablet.er 03/17/20 Unknown Rx Hour] Ondansetron [Zofran Odt] 4 mg PO Q8HR PRN #12 tab.rapdis 03/17/20 Unknown Rx Naproxen [EC-Naprosyn] 500 mg PO BID PRN #14 tablet. 06/04/20 Unknown Rx cephALEXin [Keflex] 500 mg PO QID 7 Days #28 cap 06/04/20 Unknown Rx Ibuprofen [Motrin] 800 mg PO Q8HR PRN #14 tablet 06/28/20 Unknown Rx amLODIPine 10 mg PO DAILY #30 tablet 06/28/20 Unknown Rx hydroCHLOROthiazide [HCTZ] 25 mg PO DAILY #30 tablet 06/28/20 Unknown Rx levETIRAcetam [Keppra TAB] 750 mg PO BID #60 tablet 06/28/20 Unknown Rx Albuterol Mdi (or & Nicu Only) 1 puff IH Q4-6H PRN #1 inha 07/01/20 Unknown Rx [ProAir HFA Inhaler] Azithromycin [Zithromax] 500 mg PO QDAY #5 tablet 07/01/20 Unknown Rx Montelukast [Singulair] 10 mg PO QPM #14 tablet 07/01/20 Unknown Rx predniSONE [Deltasone] 20 mg PO QDAY #5 tab 07/01/20 Unknown Rx Meloxicam [Mobic] 7.5 mg PO QDAY #10 tablet 08/18/20 Unknown Rx methOCARBAMOL [Robaxin TAB] 500 mg PO BID #20 tab 08/18/20 Unknown Rx ED Physical Exam - General Limitations: No Limitations General appearance: alert, in distress - Head Head exam: Present: atraumatic, normocephalic - Eye Eye exam: Present: normal appearance - ENT ENT exam: Present: mucous membranes moist - Respiratory Respiratory exam: Present: chest wall tenderness. Absent: accessory muscle use - Cardiovascular Cardiovascular Exam: Present: regular rate, normal rhythm. Absent: systolic murmur, diastolic murmur, rubs, gallop - GI/Abdominal GI/Abdominal exam: Present: soft, normal bowel sounds - Extremities Exam Extremities exam: Present: normal inspection, full ROM - Back Exam Back exam: Present: full ROM, tenderness, muscle spasm - Neurological Exam Neurological exam: Present: alert, oriented X3 - Psychiatric Psychiatric exam: Present: normal affect, normal mood - Skin Skin exam: Present: warm, dry, intact, normal color. Absent: rash ED Course Vital Signs 08/18/20 12:38 Temperature 98.4 F Pulse Rate 81 Respiratory 18 Rate Blood Pressure 215/99 O2 Sat by Pulse 98 Oximetry ED Medical Decision Making - Medical Decision Making 49-year-old -Maldivian female presents to the emergency room for 3-day history of left upper back and neck pain. Patient states that she has had no injury. She states that she woke up in the morning and started having some stiffness and pain that has progressively gotten worse. Patient states has been using yqxw-nqo-yyflhdh heating pad Tylenol and egqn-wzz-scgkglj pain rub cream. Patient does have a history of seizure disorder and hypertension and is currently on amlodipine losartan metoprolol and Keppra. Patient does have a primary care provider Dr. Granados at the [facility]. Patient reports that she is in the middle of menopause. Last menstrual was 6 months ago. Critical care attestation.: If time is entered above; I have spent that time in minutes in the direct care of this critically ill patient, excluding procedure time. ED Disposition Clinical Impression: Back pain, Uncontrolled hypertension Disposition: TO HOME OR SELFCARE Is pt being admited?: No Does the pt Need Aspirin: No Condition: Stable Instructions: Hypertension (ED), Acute Back Pain, Adult, Managing Your Hypertension Additional Instructions: Please take pain medication as needed. Symptoms persist or gets worse follow-up with your primary care provider. Prescriptions: Meloxicam [Mobic] 7.5 mg PO QDAY #10 tablet methOCARBAMOL [Robaxin TAB] 500 mg PO BID #20 tab Referrals: DANNA GRANADOS MD [Referring] - 3-5 Days Forms: Work/School Release Form(ED)
[2020-08-18] MEDS ORDERED: KETOROLAC 30 MG/1 ML INJ IM ONE (14:40)
== END 2020-08-18 15:03 | disposition home or self-care (01) ==
LOC: ED 12:32
DX: M54.6 Pain in thoracic spine (principal); I10 Essential (primary) hypertension; G40.909 Epilepsy, unspecified, not intractable, without status epilepticus; J44.9 Chronic obstructive pulmonary disease, unspecified; Z79.899 Other long term (current) drug therapy
CPT/HCPCS: 96372; 99282; J1885

== ENCOUNTER 2020-11-07 11:33 | Emergency (ER) | payer BC ==
[2020-11-07 11:41] VITALS: BP 224/99
--- NOTE | 2020-11-07 11:43 | Emergency Department Report ---
Blank Doc - Documentation Documentation: 50-year-old female that presents with left-sided neck, chest and abdominal pain. HTN in triage and stated is compliant with medications. 1- This initial assessment/diagnostic orders/clinical plan/ treatment(s) is/are subject to change based on pt's health status, clinical progression and re- assessment by fellow clinical providers in the ED. Further treatment and workup at subsequent clinical provers discretion. Patient/guardians urged not to elope from ED as their condition may be serious if not clinically assessed and managed. 2-cardiac work-up
[2020-11-07 12:33] LABS: Basophils # (Auto) 0.1 K/mm3 (0.0-0.1); Basophils % (Auto) 1.1 % (0.0-1.8); Eosinophils # (Auto) 0.2 K/mm3 (0.0-0.4); Eosinophils % (Auto) 2.8 % (0.0-4.3); Hemoglobin 12.9 gm/dl (10.1-14.3); Lymphocytes # (Auto) 1.4 K/mm3 (1.2-5.4); Lymphocytes % (Auto) 20.3 % (13.4-35.0); Mean Corpuscular HGB Conc 32 % (30-34); Monocytes # (Auto) 0.5 K/mm3 (0.0-0.8); Monocytes % (Auto) 7.2 % (0.0-7.3); Platelet Count 157 K/mm3 (140-440); Red Blood Count 6.29 M/mm3 (3.65-5.03); Red Cell Distribution Width 19.9 % (13.2-15.2)
[2020-11-07 12:35] LABS: Mean Corpuscular Volume 64 fl (79-97)
[2020-11-07 12:44] LABS: INR 0.91 (0.87-1.13)
[2020-11-07 12:45] LABS: Partial Thromboplastin Time 31.2 Sec. (24.2-36.6)
[2020-11-07 12:59] LABS: Alanine Aminotransferase 10 units/L (7-56); Albumin 4.1 g/dL (3.9-5); BUN/Creatinine Ratio 23; Blood Urea Nitrogen 18 mg/dL (7-17); Hemolysis Index 0
--- NOTE | 2020-11-07 13:15 | XRay Report ---
CHEST 2 VIEWS 1314 INDICATION / CLINICAL INFORMATION: Chest Pain COMPARISON: 07/01/2020 FINDINGS: SUPPORT DEVICES: None. HEART / MEDIASTINUM: No significant abnormality. LUNGS / PLEURA: No significant pulmonary or pleural abnormality. Mild scarring is again noted in the left base. No pneumothorax. ADDITIONAL FINDINGS: No significant additional findings. IMPRESSION: No significant acute abnormality Signer Name: Nato Varner MD Signed: 11/07/2020 1:11 PM Workstation Name: [id number]
[2020-11-07 13:56] LABS: Bilirubin,Urine NEG (Negative); Blood,Urine NEG (Negative); Color,Urine Yellow (Yellow); Mucus,Urine FEW /HPF; Protein,Urine <15 mg/dL mg/dL (Negative); Urobilinogen,Urine < 2.0 mg/dL (<2.0)
[2020-11-07] MEDS ORDERED: ONDANSETRON 4 MG/2 ML INJ IM ONE (13:57)
[2020-11-07] MEDS ORDERED: fentaNYL 100 MCG/2 ML INJ IM ONE (13:57)
[2020-11-07] MEDS ORDERED: cloNIDine 0.2 MG TAB PO ONE (13:58)
[2020-11-07] MEDS ORDERED: KETOROLAC 60 MG/2 ML INJ IM ONE (13:58)
--- NOTE | 2020-11-07 14:08 | Emergency Department Report ---
HPI - General Chief Complaint: Abdominal Pain Time Seen by Provider: 11/07/20 11:41 - HPI HPI: Room 39 The patient is a 50-year-old female present with a chief complaint of left neck pain. Patient states for the past week she has had pain in her left neck rating to the left shoulder. Patient describes the pain is intermittent and worsens with direct pressure or movement of the left upper extremity. Patient describes the pain as sharp in nature. Patient denies fever cough or shortness of breath. Patient denies nausea vomiting or diarrhea. ED Past Medical Hx - Past Medical History Hx Hypertension: Yes Hx Seizures: Yes Hx COPD: Yes Additional medical history: Seizure - Surgical History Additional Surgical History: right ovary removal (2014) - Family History Family history: no significant - Social History Smoking Status: Current Every Day Smoker (Black and milds) Substance Use Type: None (Denies illicit drug use), Alcohol (Occasional) - Medications Home Medications: Home Medications Medication Instructions Recorded Confirmed Last Taken Type Losartan [Cozaar] 1 tab PO DAILY 12/26/18 02/28/20 02/17/20 History amLODIPine 20 mg PO DAILY 12/26/18 02/28/20 02/17/20 History Esomeprazole Magnesium [NexIUM] 40 mg PO QDAY #30 capsule. 10/25/19 02/28/20 02/16/20 Rx Metoprolol [Lopressor TAB] 50 mg PO DAILY #30 02/17/20 02/28/20 Unknown Rx levoFLOXacin [Levaquin TAB] 500 mg PO QDAY #7 tablet 03/01/20 Unknown Rx methylPREDNISolone [Medrol 4MG 4 mg PO DAILY 6 Days #1 tab.ds.pk 03/09/20 Unknown Rx DOSEPAK (21 tabs)] Acetaminophen [Acetaminophen 8 650 mg PO Q8H PRN #12 tablet.er 03/17/20 Unknown Rx Hour] Ondansetron [Zofran Odt] 4 mg PO Q8HR PRN #12 tab.rapdis 03/17/20 Unknown Rx Naproxen [EC-Naprosyn] 500 mg PO BID PRN #14 tablet. 06/04/20 Unknown Rx cephALEXin [Keflex] 500 mg PO QID 7 Days #28 cap 06/04/20 Unknown Rx Ibuprofen [Motrin] 800 mg PO Q8HR PRN #14 tablet 06/28/20 Unknown Rx amLODIPine 10 mg PO DAILY #30 tablet 06/28/20 Unknown Rx hydroCHLOROthiazide [HCTZ] 25 mg PO DAILY #30 tablet 06/28/20 Unknown Rx levETIRAcetam [Keppra TAB] 750 mg PO BID #60 tablet 06/28/20 Unknown Rx Albuterol Mdi (or & Nicu Only) 1 puff IH Q4-6H PRN #1 inha 07/01/20 Unknown Rx [ProAir HFA Inhaler] Azithromycin [Zithromax] 500 mg PO QDAY #5 tablet 07/01/20 Unknown Rx Montelukast [Singulair] 10 mg PO QPM #14 tablet 07/01/20 Unknown Rx predniSONE [Deltasone] 20 mg PO QDAY #5 tab 07/01/20 Unknown Rx Meloxicam [Mobic] 7.5 mg PO QDAY #10 tablet 08/18/20 Unknown Rx methOCARBAMOL [Robaxin TAB] 500 mg PO BID #20 tab 08/18/20 Unknown Rx Cyclobenzaprine HCl [Flexeril 5 MG 5 mg PO TID #14 tab 11/07/20 Unknown Rx TAB] HYDROcodone/APAP 5-325 [[place] 1 - 2 each PO Q6HR PRN #14 tablet 11/07/20 Unknown Rx 5/325] Ibuprofen [Motrin 800 MG tab] 800 mg PO Q8HR PRN #20 tablet 11/07/20 Unknown Rx Sulfamethoxazole/Trimethoprim 1 each PO BID #6 tablet 11/07/20 Unknown Rx [Bactrim DS TAB] ED Review of Systems ROS: Stated complaint: LEFT SIDED BODY PAIN Other details as noted in HPI Constitutional: denies: fever Eyes: denies: eye pain ENT: denies: throat pain Respiratory: denies: cough, shortness of breath Cardiovascular: denies: chest pain Endocrine: no symptoms reported Gastrointestinal: abdominal pain. denies: nausea, vomiting, diarrhea Genitourinary: denies: dysuria Musculoskeletal: arthralgia, myalgia Neurological: denies: headache Physical Exam - Physical Exam Vital Signs: Vital Signs 11/07/20 11:38 Temperature 98.7 F Pulse Rate 89 Respiratory 22 Rate Blood Pressure 224/99 O2 Sat by Pulse 99 Oximetry Physical Exam: GENERAL: The patient is well-developed well-nourished female lying on stretcher not appearing to be in acute distress. [] HEENT: Normocephalic. Atraumatic. Extraocular motions are intact. Patient has moist mucous membranes. NECK: Supple. No axial tenderness palpation. Left lateral trapezius tenderness to palpation. Pain exacerbated by turning head to the right and left CHEST/LUNGS: Clear to auscultation. There is no respiratory distress noted. HEART/CARDIOVASCULAR: Regular. There is no tachycardia. There is no gallop rub or murmur. 2+ radial pulses bilaterally ABDOMEN: Abdomen is soft, nontender. Patient has normal bowel sounds. There is no abdominal distention. SKIN: There is no rash. There is no edema. There is no diaphoresis. NEURO: The patient is awake, alert, and oriented. The patient is cooperative. The patient has no focal neurologic deficits. The patient has normal speech MUSCULOSKELETAL: There is reproducible left shoulder pain with range of motion. Left shoulder is tender to palpation. Neck pain exacerbated by turning head to the right and left there is no limitation range of motion. There is no evidence of acute injury. ED Course Vital Signs 11/07/20 11:38 Temperature 98.7 F Pulse Rate 89 Respiratory 22 Rate Blood Pressure 224/99 O2 Sat by Pulse 99 Oximetry ED Medical Decision Making - Lab Data Result diagrams: 11/07/20 12:19 11/07/20 12:19 Laboratory Tests 11/07/20 11/07/20 11/07/20 12:19 12:19 12:19 WBC 6.8 RBC 6.29 H Hgb 12.9 Hct 40.0 MCV 64 L MCH 21 L MCHC 32 RDW 19.9 H Plt Count 157 Lymph % (Auto) 20.3 [place] % (Auto) 7.2 Eos % (Auto) 2.8 Baso % (Auto) 1.1 Lymph # (Auto) 1.4 [place] # (Auto) 0.5 Eos # (Auto) 0.2 Baso # (Auto) 0.1 Seg Neutrophils % 68.6 Seg Neutrophils # 4.7 PT INR APTT Sodium 138 Potassium 3.7 Chloride 106.9 Carbon Dioxide 25 Anion Gap 10 BUN 18 H Creatinine 0.8 Estimated GFR > 60 BUN/Creatinine Ratio 23 Glucose 92 Calcium 9.0 Total Bilirubin < 0.20 AST 10 ALT 10 Alkaline Phosphatase 103 Troponin T < 0.010 Total Protein 7.5 Albumin 4.1 Albumin/Globulin Ratio 1.2 Lipase HCG, Qual Negative Urine Color Urine Turbidity Urine pH Ur Specific [place] Urine Protein Urine Glucose (UA) Urine Ketones Urine Blood Urine Nitrite Urine Bilirubin Urine Urobilinogen Ur Leukocyte Esterase Urine WBC (Auto) Urine RBC (Auto) U Epithel Cells (Auto) Urine Mucus 11/07/20 11/07/20 11/07/20 12:19 12:19 Unknown WBC RBC Hgb Hct MCV MCH MCHC RDW Plt Count Lymph % (Auto) [place] % (Auto) Eos % (Auto) Baso % (Auto) Lymph # (Auto) [place] # (Auto) Eos # (Auto) Baso # (Auto) Seg Neutrophils % Seg Neutrophils # PT 12.1 L INR 0.91 APTT 31.2 Sodium Potassium Chloride Carbon Dioxide Anion Gap BUN Creatinine Estimated GFR BUN/Creatinine Ratio Glucose Calcium Total Bilirubin AST ALT Alkaline Phosphatase Troponin T Total Protein Albumin Albumin/Globulin Ratio Lipase 17 HCG, Qual Urine Color Yellow Urine Turbidity Slightly-cloudy Urine pH 7.0 Ur Specific [place] 1.020 Urine Protein <15 mg/dl Urine Glucose (UA) Neg Urine Ketones Neg Urine Blood Neg Urine Nitrite Neg Urine Bilirubin Neg Urine Urobilinogen < 2.0 Ur Leukocyte Esterase Sm Urine WBC (Auto) 11.0 H Urine RBC (Auto) 4.0 U Epithel Cells (Auto) 12.0 Urine Mucus Few - EKG Data -: EKG Interpreted by Ms EKG shows normal: sinus rhythm Rate: normal - EKG Data When compared to previous EKG there are: previous EKG unavailable Interpretation: nonspecific ST-T wave abelino (T wave inversion in lead aVL) - Radiology Data Radiology results: report reviewed (CT cervical spine), image reviewed (CT ce rvical spine) [address] [address] Cat Scan Report Signed Patient: JOJO DE SANTIAGO MR#: [id number] : 1970 Acct:[id number] Age/Sex: 50 / F ADM Date: 11/07/20 Loc: ED Attending Dr: Ordering Physician: HARRIS KEARNEY MD Date of Service: 11/07/20 Procedure(s): CT cervical spine wo con Accession Number(s): [id number] cc: HARRIS KEARNEY MD CT cervical spine without contrast INDICATION: Left neck pain radiating to left shoulder.. TECHNIQUE: Axial imaging performed through the cervical spine without the use of contrast. Sagittal and coronal reconstructed images were also reviewed. All CT scans at this location are performed using CT dose reduction for ALARA by means of automated exposure control. COMPARISON: CT cervical spine from 04/10/2019 FINDINGS: Alignment: Spinal alignment is normal. Bones: There is no acute osseous abnormality. Mild multilevel discogenic DJD is present. No significant canal or foraminal stenosis at any level. Soft tissues: No acute or significant incidental soft tissue abnormality. IMPRESSION: No acute abnormality or significant canal/foraminal stenosis at any level. Signer Name: Leif Ojeda MD Signed: 11/07/2020 2:30 PM Workstation Name: [id number] Transcribed By: JW Dictated By: Leif Ojeda MD Electronically Authenticated By: Leif Ojeda MD Signed Date/Time: 11/07/20 143 DD/ 25 TD/TT: - Differential Diagnosis Cervical radiculopathy, rotator cuff injury Critical care attestation.: If time is entered above; I have spent that time in minutes in the direct care of this critically ill patient, excluding procedure time. ED Disposition Clinical Impression: Left shoulder pain, Neck pain on left side, Hypertension Disposition: - TO HOME OR SELFCARE Is pt being admited?: No Does the pt Need Aspirin: No Condition: Stable Instructions: Abdominal Pain (ED), Hypertension (ED), Musculoskeletal Pain, Managing Your Hypertension, Rotator Cuff Tendinitis, Rotator Cuff Tear Additional Instructions: Return to the emergency department should you develop worsening symptoms, inability to tolerate food or liquids, high fever or any other concerns Prescriptions: Sulfamethoxazole/Trimethoprim [Bactrim DS TAB] 1 each PO BID #6 tablet Cyclobenzaprine HCl [Flexeril 5 MG TAB] 5 mg PO TID #14 tab Ibuprofen [Motrin 800 MG tab] 800 mg PO Q8HR PRN #20 tablet PRN Reason: Pain, Moderate (4-6) HYDROcodone/APAP 5-325 [[place] 5/325] 1 - 2 each PO Q6HR PRN #14 tablet PRN Reason: Pain Referrals: DANNA ANDREA MD [Primary Care Provider] - 3-5 Days ROMAN HOWARD MD [Staff Physician] - 3-5 Days (Dr. Howard is an orthopedic surgeon. Please follow-up with him for further evaluation) Time of Disposition: 15:21
--- NOTE | 2020-11-07 14:34 | Cat Scan Report ---
CT cervical spine without contrast INDICATION: Left neck pain radiating to left shoulder.. TECHNIQUE: Axial imaging performed through the cervical spine without the use of contrast. Sagittal and coronal reconstructed images were also reviewed. All CT scans at this location are performed us ing CT dose reduction for ALARA by means of automated exposure control. COMPARISON: CT cervical spine from 04/10/2019 FINDINGS: Alignment: Spinal alignment is normal. Bones: There is no acute osseous abnormality. Mild multilevel discogenic DJD is present. No signif icant canal or foraminal stenosis at any level. Soft tissues: No acute or significant incidental soft tissue abnormality. IMPRESSION: No acute abnormality or significant canal/foraminal stenosis at any level. Signer Name: Leif Ojeda MD Signed: 11/07/2020 2:30 PM Workstation Name: [id number]
[2020-11-07] MEDS ORDERED: fentaNYL 100 MCG/2 ML INJ IV ONE (14:52)
[2020-11-07] MEDS ORDERED: ONDANSETRON 4 MG/2 ML INJ IV ONE (14:52)
[2020-11-07] MEDS ORDERED: KETOROLAC 30 MG/1 ML INJ IV ONE (14:52)
== END 2020-11-07 15:51 | disposition home or self-care (01) ==
LOC: ED 11:33
DX: M54.2 Cervicalgia (principal); M25.512 Pain in left shoulder; I10 Essential (primary) hypertension; R56.9 Unspecified convulsions; J44.9 Chronic obstructive pulmonary disease, unspecified; Z98.890 Other specified postprocedural states; F17.200 Nicotine dependence, unspecified, uncomplicated; Z79.1 Long term (current) use of non-steroidal anti-inflammatories (NSAID); Z79.2 Long term (current) use of antibiotics; Z79.899 Other long term (current) drug therapy
CPT/HCPCS: 36415; 71046; 72125; 80053; 81001; 83690; 84484; 84703; 85025; 85610; 85730; 87086; 93005; 96374; 96375; 99284; J1885; J2405; J3010

== ENCOUNTER 2020-11-16 16:41 | Emergency (ER) | payer BC ==
--- NOTE | 2020-11-16 17:01 | Event Note ---
ED Screening Note Date of service: 11/16/20 Time: 17:00 ED Screening Note: Pt complains of continued left sided neck pain with difficulty moving the neck and pain radiating down the left arm/chest/back Pt seen here for same 15-states meds not helping denies fever hx of COPD, seizures, HTN This initial assessment/diagnostic orders/clinical plan/treatment(s) is/are subject to change based on patients health status, clinical progression and re- assessment by fellow clinical providers in the ED. Further treatment and workup at subsequent clinical providers discretion. Patient/guardian urged not to elope from the ED as their condition may be serious if not clinically assessed and managed. Initial orders include: labs ekg CXR
--- NOTE | 2020-11-16 17:25 | XRay Report ---
CHEST PA AND LATERAL VIEWS INDICATION: left sided chest pain. COMPARISON: 11/07/2020 FINDINGS: Support devices: None Heart: Normal Lungs/Pleura: No acute pulmonary or pleural findings. IMPRESSION: 1. No significant abnormality and no interval change. Signer Name: Melvin Ware MD Signed: 11/16/2020 5:21 PM Workstation Name: [id number]
[2020-11-16] MEDS ORDERED: methOCARBAMOL 1,000 MG in SODIUM CHLORIDE 0.9% 250ML 250 ML IV ONE (17:30)
[2020-11-16 17:58] LABS: Hematocrit 44.4 % (30.3-42.9); Hemoglobin 14.1 gm/dl (10.1-14.3); Mean Corpuscular HGB Conc 32 % (30-34); Platelet Count 159 K/mm3 (140-440); Red Blood Count 6.94 M/mm3 (3.65-5.03)
[2020-11-16 18:01] LABS: Mean Corpuscular Volume 64 fl (79-97)
[2020-11-16 18:23] LABS: Alanine Aminotransferase 13 units/L (7-56); Albumin 4.1 g/dL (3.9-5); BUN/Creatinine Ratio 19; Blood Urea Nitrogen 15 mg/dL (7-17); Calcium 9.1 mg/dL (8.4-10.2); Hemolysis Index 20
[2020-11-16] MEDS ORDERED: HYDROmorphone 1 MG/1 ML INJ IV ONE (20:38)
[2020-11-16] MEDS ORDERED: SODIUM CHLORIDE 0.9% 1000 ML 1,000 ML IV ONE (21:35)
--- NOTE | 2020-11-16 21:41 | Emergency Department Report ---
ED General Adult HPI - General Chief complaint: Extremity Injury, Upper Stated complaint: LT SIDE PAIN PUI?: No Time Seen by Provider: 11/16/20 16:56 Source: patient, RN notes reviewed, old records reviewed Mode of arrival: Ambulatory Limitations: No Limitations - History of Present Illness Initial comments: The patient was evaluated in the emergency department for symptoms described in the history of present illness. He/she was evaluated in the context of the global COVID-19 pandemic, which necessitated consideration that the patient might be at risk for infection with the virus that causes COVID-19. Institutional protocols and algorithms that pertain to the evaluation of patients at risk for COVID-19 are in a state of rapid change based on information released by regulatory bodies including the CDC and federal and state organizations. These policies and algorithms were followed during the patient's care in the emergency department. Please note that these policies, procedures and recommendations changed on a rapid basis. Patient is a 50-year-old female. She is right-hand dominant. 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 She has a history of hypertension, question COPD, seizures. The patient presents to the ER today with a complaint of nontraumatic left paracervical neck pain, that moves into her left upper extremity, left chest, and left upper quadrant of her abdomen. The patient was seen for similar symptoms about a week ago, presumptively diagnosed with cervical radiculopathy, had a CT scan of her neck which was negative for acute findings, and given prescription medication for supportive care, which is not really improving her symptoms. The patient endorses his pain has been present for about a week and 1/2 to 2 weeks. To me, she denies severe headache, midline neck pain, she endorses left- sided chest pain, left upper quadrant abdominal pain. No vomiting or diaphoresis. No posterior leg pain or leg swelling. Does not take oral contraceptives. No control tablets. No surgeries. No personal family history of DVT or pulmonary embolus, or ischemic heart disease that she is aware of. No bladder or bowel retention or incontinence, no saddle anesthesia. Pain is sharp and throbbing, increases with palpation and decreases with rest. -: Gradual, days(s) Location: neck Radiation: abdomen, other (Chest) Severity scale (0 -10): 10 Consistency: intermittent Improves with: movement, rest - Related Data Home Medications Medication Instructions Recorded Confirmed Last Taken amLODIPine 20 mg PO DAILY 12/26/18 02/28/20 02/17/20 Previous Rx's Medication Instructions Recorded Last Taken Type Esomeprazole Magnesium [NexIUM] 40 mg PO QDAY #30 capsule. 10/25/19 02/16/20 Rx methylPREDNISolone [Medrol 4MG 4 mg PO DAILY 6 Days #1 tab.ds.pk 03/09/20 Unknown Rx DOSEPAK (21 tabs)] Acetaminophen [Acetaminophen 8 650 mg PO Q8H PRN #12 tablet.er 03/17/20 Unknown Rx Hour] Ondansetron [Zofran ODT TAB] 4 mg PO Q8HR PRN #12 tab.rapdis 03/17/20 Unknown Rx Naproxen [EC-Naprosyn] 500 mg PO BID PRN #14 tablet. 06/04/20 Unknown Rx Ibuprofen [Motrin 800 MG tab] 800 mg PO Q8HR PRN #14 tablet 06/28/20 Unknown Rx levETIRAcetam [Keppra TAB] 750 mg PO BID #60 tablet 06/28/20 Unknown Rx Albuterol Mdi (or & Nicu Only) 1 puff IH Q4-6H PRN #1 inha 07/01/20 Unknown Rx [ProAir HFA Inhaler] Montelukast [Singulair] 10 mg PO QPM #14 tablet 07/01/20 Unknown Rx methOCARBAMOL [Robaxin TAB] 500 mg PO BID #20 tab 08/18/20 Unknown Rx Cyclobenzaprine HCl [Flexeril 5 MG 5 mg PO TID #14 tab 11/07/20 Unknown Rx TAB] HYDROcodone/APAP 5-325 [Sprague 1 - 2 each PO Q6HR PRN #14 tablet 11/07/20 Unknown Rx 5-325 mg TAB] Ibuprofen [Motrin 800 MG tab] 800 mg PO Q8HR PRN #20 tablet 11/07/20 Unknown Rx Losartan [Cozaar] 1 tab PO DAILY #30 11/17/20 Unknown Rx Metoprolol [Lopressor TAB] 50 mg PO DAILY #30 11/17/20 Unknown Rx amLODIPine 10 mg PO DAILY #30 tablet 11/17/20 Unknown Rx Allergies Allergy/AdvReac Type Severity Reaction Status Date / Time No Known Allergies Allergy Verified 11/07/20 11:35 ED Review of Systems ROS: Stated complaint: LT SIDE PAIN Other details as noted in HPI Constitutional: denies: fever Eyes: denies: eye discharge ENT: denies: epistaxis Respiratory: denies: cough, shortness of breath Cardiovascular: chest pain Gastrointestinal: abdominal pain. denies: nausea Genitourinary: denies: dysuria Musculoskeletal: back pain Neurological: paresthesias. denies: abnormal gait, vertigo Psychiatric: anxiety Hematological/Lymphatic: denies: easy bleeding ED Past Medical Hx - Past Medical History Previous Medical History?: Yes Hx Hypertension: Yes Hx Seizures: Yes Hx COPD: Yes Additional medical history: Seizure - Surgical History Past Surgical History?: Yes Additional Surgical History: right ovary removal (2014) - Social History Smoking Status: Never Smoker Substance Use Type: None - Medications Home Medications: Home Medications Medication Instructions Recorded Confirmed Last Taken Type amLODIPine 20 mg PO DAILY 12/26/18 02/28/20 02/17/20 History Esomeprazole Magnesium [NexIUM] 40 mg PO QDAY #30 capsule. 10/25/19 02/28/20 02/16/20 Rx methylPREDNISolone [Medrol 4MG 4 mg PO DAILY 6 Days #1 tab.ds.pk 03/09/20 Unknown Rx DOSEPAK (21 tabs)] Acetaminophen [Acetaminophen 8 650 mg PO Q8H PRN #12 tablet.er 03/17/20 Unknown Rx Hour] Ondansetron [Zofran ODT TAB] 4 mg PO Q8HR PRN #12 tab.rapdis 03/17/20 Unknown Rx Naproxen [EC-Naprosyn] 500 mg PO BID PRN #14 tablet. 06/04/20 Unknown Rx Ibuprofen [Motrin 800 MG tab] 800 mg PO Q8HR PRN #14 tablet 06/28/20 Unknown Rx levETIRAcetam [Keppra TAB] 750 mg PO BID #60 tablet 06/28/20 Unknown Rx Albuterol Mdi (or & Nicu Only) 1 puff IH Q4-6H PRN #1 inha 07/01/20 Unknown Rx [ProAir HFA Inhaler] Montelukast [Singulair] 10 mg PO QPM #14 tablet 07/01/20 Unknown Rx methOCARBAMOL [Robaxin TAB] 500 mg PO BID #20 tab 08/18/20 Unknown Rx Cyclobenzaprine HCl [Flexeril 5 MG 5 mg PO TID #14 tab 11/07/20 Unknown Rx TAB] HYDROcodone/APAP 5-325 [[place] 1 - 2 each PO Q6HR PRN #14 tablet 11/07/20 Unknown Rx 5-325 mg TAB] Ibuprofen [Motrin 800 MG tab] 800 mg PO Q8HR PRN #20 tablet 11/07/20 Unknown Rx Losartan [Cozaar] 1 tab PO DAILY #30 11/17/20 Unknown Rx Metoprolol [Lopressor TAB] 50 mg PO DAILY #30 11/17/20 Unknown Rx amLODIPine 10 mg PO DAILY #30 tablet 11/17/20 Unknown Rx ED Physical Exam - General Limitations: No Limitations General appearance: alert, anxious, in distress, obese - Head Head exam: Present: atraumatic, normocephalic - Eye Eye exam: Present: normal appearance, PERRL, EOMI, other (Visual acuity intact to finger counting, color perception, reading at a close distance). Absent: nystagmus - ENT ENT exam: Present: normal exam, normal orophraynx, mucous membranes moist, normal external ear exam - Neck Neck exam: Present: normal inspection, full ROM, other (There is left-sided reproducible trapezius and paracervical muscular tenderness. There is no midline cervical spine pain or tenderness). Absent: meningismus - Respiratory Respiratory exam: Present: normal lung sounds bilaterally, chest wall tenderness. Absent: respiratory distress, wheezes, rales, rhonchi, stridor - Cardiovascular Cardiovascular Exam: Present: regular rate, normal rhythm, normal heart sounds. Absent: bradycardia, tachycardia, irregular rhythm, systolic murmur, diastolic murmur, rubs, gallop - GI/Abdominal GI/Abdominal exam: Present: soft, tenderness, normal bowel sounds, other (There is left upper quadrant tenderness to deep palpation). Absent: distended, guarding, rebound, rigid, pulsatile mass - Extremities Exam Extremities exam: Present: normal inspection, full ROM, other (2+ pulses noted in the bilateral upper and lower extremities. There is no palpable cord. ne gative Homans sign. Muscular compartments are soft. The pelvis is stable.). Absent: pedal edema, calf tenderness - Back Exam Back exam: Present: normal inspection, full ROM, paraspinal tenderness. Absent: tenderness, CVA tenderness (R), CVA tenderness (L), muscle spasm, vertebral tenderness - Neurological Exam Neurological exam: Present: alert, oriented X3, normal gait, reflexes normal (Downgoing plantar reflexes bilaterally. 2+ quadriceps, biceps, and triceps reflexes bilaterally. Sensation intact to light touch, pinch and proprioception of the bilateral upper and lower extremities), other (No facial droop. Tongue midline. Extraocular movements intact bilaterally. Facial sensation intact to light touch in V1, V2, V3 distribution bilaterally. 5 and a 5 strength in 4 extremities. Sensation intact to light touch in 4 extremities.). Absent: motor sensory deficit (No facial droop. Tongue midline. Extraocular movements intact bilaterally. Facial sensation intact to light touch in V1, V2, V3 distribution bilaterally. 5 and a 5 strength in 4 extremities. Sensation intact to light touch in 4 extremities.) - Psychiatric Psychiatric exam: Present: anxious - Skin Skin exam: Present: warm, dry, intact, normal color. Absent: rash ED Course Vital Signs 11/16/20 11/16/20 11/16/20 16:51 20:41 20:46 Temperature 98.4 F Pulse Rate 75 62 59 L Respiratory 20 17 14 Rate Blood Pressure 193/73 214/88 Blood Pressure [Right] O2 Sat by Pulse 96 99 Oximetry 11/16/20 11/16/20 11/16/20 20:52 21:00 21:22 Temperature Pulse Rate 66 54 L Respiratory 18 15 11 L Rate Blood Pressure 206/94 Blood Pressure [Right] O2 Sat by Pulse 100 99 Oximetry 11/16/20 11/16/20 11/16/20 21:30 21:46 21:47 Temperature Pulse Rate 59 L 59 L 49 L Respiratory 18 13 Rate Blood Pressure 206/80 216/100 216/100 Blood Pressure [Right] O2 Sat by Pulse 100 100 Oximetry 11/16/20 11/16/20 11/16/20 22:00 23:12 23:15 Temperature Pulse Rate 62 60 Respiratory 21 Rate Blood Pressure 216/100 216/100 193/105 Blood Pressure [Right] O2 Sat by Pulse 99 99 Oximetry 11/16/20 11/16/20 11/16/20 23:16 23:17 23:21 Temperature Pulse Rate 68 60 60 Respiratory 20 16 Rate Blood Pressure 193/105 193/105 Blood Pressure 193/105 [Right] O2 Sat by Pulse 97 99 Oximetry - Reevaluation(s) Reevaluation #1: 11/16/20 21:41 Differential diagnosis, including but not limited to: Cervical radiculopathy, renal colic, pneumonia, obstruction, pulmonary embolism Assessment and plan: 50-year-old female with left paracervical neck pain that moves down her left upper extremity, left flank, left upper quadrant, and left chest. The patient is not currently tachycardic, tachypneic or hypoxic, she denies DVT and pulmonary embolism risk factors, she is low risk by Wells criteria and PERC negative. However, given complaint of chest pain, left axis deviation with left anterior fascicular block, D-dimer sent, elevated, therefore, CT scan of the chest and/or nuclear medicine study, depending on IV access, will be obtained to risk stratify patient for pulmonary embolism. She currently has a GCS of 15, with NIH score of 0, 5 out of 5 strength in 4 extremities, appropriate reflexes, walks with a steady gait, sensation is intact to light touch, pinch and proprioception, examination not consistent or suggestive of impending cord compression or cord compromise at this time. Suspect a component of cervical radiculopathy. Chest pain present for 1 week, EKG unchanged from prior, troponin negative x1, therefore, as per the [employer] clinical policy, myocardial infarction may be excluded/ruled out with 1 set of troponins/cardiac enzymes. Patient at low risk of major adverse cardiac event as per heart score. Has equal pulses in the upper and lower extremities, no pulsatile abdominal mass, and unremarkable x-ray of the chest, therefore, aortic disease is u nlikely. Reassess after initial data points have resulted 11/17/20 00:14 Patient has been reevaluated multiple times while here in the emergency department. Her blood pressure is improved. Her EKG is unchanged from her prior EKG. Troponin is negative x1. D-dimer was elevated, CT scan of the chest was obtained, it was negative for acute findings. CT scan of the abdomen pelvis was negative for acute findings. Urinalysis not suggestive of urinary tract infection, she does appear to have asymptomatic pyuria, however, recent cultures were negative. This is unlikely to be pyelonephritis. This patient most likely has a cervical radiculopathy, and uncontrolled hypertension. Patient remains at low risk for major adverse cardiac event as per heart score. Facesheet will be transmitted to [facility] cardiology to arrange outpatient follow-up for cardiac risk ratification. This patient was observed in the ER for hours without clinical decompensation. She is suitable for trial of outpatient management and follow-up for her abdominal pain, chest pain, and she is likely experiencing the natural history of cervical radiculopathy. ED Medical Decision Making - Lab Data Result diagrams: 11/16/20 17:32 11/16/20 17:32 Vital Signs 11/16/20 11/16/20 16:51 20:52 Temperature 98.4 F Pulse Rate 75 Respiratory 20 18 Rate Blood Pressure 193/73 O2 Sat by Pulse 96 Oximetry Lab Results 11/16/20 11/16/20 11/16/20 Range/Units 17:32 17:32 20:47 WBC 6.5 (4.5-11.0) K/mm3 RBC 6.94 H (3.65-5.03) M/mm3 Hgb 14.1 (10.1-14.3) gm/dl Hct 44.4 H (30.3-42.9) % MCV 64 L (79-97) fl MCH 20 L (28-32) pg MCHC 32 (30-34) % RDW 20.0 H (13.2-15.2) % Plt Count 159 (140-440) K/mm3 Lymph % (Auto) Early Childhood Assistant [place] % (Auto) Early Childhood Assistant Eos % (Auto) Early Childhood Assistant Baso % (Auto) Early Childhood Assistant Lymph # (Auto) Early Childhood Assistant [place] # (Auto) Early Childhood Assistant Eos # (Auto) Early Childhood Assistant Baso # (Auto) Early Childhood Assistant Seg Neutrophils % Early Childhood Assistant Seg Neutrophils # Early Childhood Assistant D-Dimer 632.0 H (0-234) ng/mlDDU Sodium 138 (137-145) mmol/L Potassium 3.6 (3.6-5.0) mmol/L Chloride 105.0 (98-107) mmol/L Carbon Dioxide 25 (22-30) mmol/L Anion Gap 12 mmol/L BUN 15 (7-17) mg/dL Creatinine 0.8 (0.6-1.2) mg/dL Estimated GFR > 60 ml/min BUN/Creatinine Ratio 19 % Glucose 75 (65-100) mg/dL Calcium 9.1 (8.4-10.2) mg/dL Total Bilirubin 0.30 (0.1-1.2) mg/dL AST 14 (5-40) units/L ALT 13 (7-56) units/L Alkaline Phosphatase 112 (35-129) units/L Troponin T < 0.010 (0.00-0.029) ng/mL Total Protein 7.7 (6.3-8.2) g/dL Albumin 4.1 (3.9-5) g/dL Albumin/Globulin Ratio 1.1 % HCG, Quant (0-4) mIU/mL 11/16/20 Range/Units 20:47 WBC (4.5-11.0) K/mm3 RBC (3.65-5.03) M/mm3 Hgb (10.1-14.3) gm/dl Hct (30.3-42.9) % MCV (79-97) fl MCH (28-32) pg MCHC (30-34) % RDW (13.2-15.2) % Plt Count (140-440) K/mm3 Lymph % (Auto) [place] % (Auto) Eos % (Auto) Baso % (Auto) Lymph # (Auto) [place] # (Auto) Eos # (Auto) Baso # (Auto) Seg Neutrophils % Seg Neutrophils # D-Dimer (0-234) ng/mlDDU Sodium (137-145) mmol/L Potassium (3.6-5.0) mmol/L Chloride (98-107) mmol/L Carbon Dioxide (22-30) mmol/L Anion Gap mmol/L BUN (7-17) mg/dL Creatinine (0.6-1.2) mg/dL Estimated GFR ml/min BUN/Creatinine Ratio % Glucose (65-100) mg/dL Calcium (8.4-10.2) mg/dL Total Bilirubin (0.1-1.2) mg/dL AST (5-40) units/L ALT (7-56) units/L Alkaline Phosphatase (35-129) units/L Troponin T (0.00-0.029) ng/mL Total Protein (6.3-8.2) g/dL Albumin (3.9-5) g/dL Albumin/Globulin Ratio % HCG, Quant < 2 (0-4) mIU/mL - EKG Data -: EKG Interpreted by [place] EKG shows normal: sinus rhythm Rate: normal - EKG Data Interpretation: unchanged when compared t (Unchanged from prior EKG from November 07, 2020) 11/16/20 21:37 Sinus rhythm, 66 bpm, left axis deviation, borderline left anterior fascicular block, poor R wave progression, abnormal EKG, not a STEMI. - Radiology Data Radiology results: pending, report reviewed, image reviewed CHEST PA AND LATERAL VIEWS INDICATION: left sided chest pain. COMPARISON: 11/07/2020 FINDINGS: Support devices: None Heart: Normal Lungs/Pleura: No acute pulmonary or pleural findings. IMPRESSION: 1. No significant abnormality and no interval change. CTA CHEST WITH CONTRAST INDICATION / CLINICAL INFORMATION: Pt states LT sided chest pain, and abd pain, elevated D-dimer. TECHNIQUE: Axial CT images were obtained through the chest after injection of IV contrast. 3 plane MIP and/or 3D reconstructions were produced. All CT scans at this location are performed using CT dose reduction for ALARA by means of automated exposure control. COMPARISON: None available. FINDINGS: PULMONARY ARTERIES: No central or segmental pulmonary embolus. THORACIC AORTA: No significant abnormality. HEART: Mild cardiac enlargement. No pericardial effusion. ADENOPATHY: No significant adenopathy. LUNGS/PLEURA: Patchy reticular and groundglass opacities at the lung bases most likely reflect atelectasis. No airspace consolidation. No pleural effusion. No pneumothorax. ADDITIONAL FINDINGS: None. UPPER ABDOMEN: Detailed below. SKELETAL STRUCTURES: No significant osseous abnormality. IMPRESSION: No acute findings in the chest. No evidence of pulmonary embolus. CT ABDOMEN AND PELVIS WITH CONTRAST INDICATION / CLINICAL INFORMATION: Pt states LT sided chest pain, and abd pain, elevated D-dimer. TECHNIQUE: Axial CT images were obtained through the abdomen and pelvis after IV contrast. All CT scans at this location are performed using CT dose reduction for ALARA by means of automated exposure control. COMPARISON: CT from 03/17/2020 and 10/25/2019. FINDINGS: LIVER: No significant abnormality GALLBLADDER/BILIARY TREE: No significant abnormality PANCREAS: No significant abnormality SPLEEN: No significant abnormality ADRENALS: Stable 2 cm probable left adrenal adenoma KIDNEYS / URETER: No significant abnormality URINARY BLADDER: No significant abnormality REPRODUCTIVE ORGANS: Lobulated uterus, most compatible with uterine fibroids. There are cystic changes in the cervix, most consistent with nabothian cysts. Grossly unchanged appearance of small cystic lesions in the pelvis, most pronounced to the left of midline. Trace pelvic free fluid is again seen. STOMACH / SMALL BOWEL: Stomach and small bowel are normal in caliber. No evidence of bowel inflammation. COLON: The colon is unremarkable. The appendix is normal in caliber. LYMPH NODES: No significant adenopathy. VASCULATURE: No significant abnormality. OTHER: No free air, free fluid, or focal fluid collection is identified. SKELETAL SYSTEM: No acute osseous findings. IMPRESSION: 1. No acute abnormality the abdomen or pelvis. 2. Stable cystic pelvic lesions. Differential is unchanged from prior studies. Signer Name: Cal Jasmine MD Signed: 11/16/2020 10:26 PM Workstation Name: [id number] Critical care attestation.: If time is entered above; I have spent that time in minutes in the direct care of this critically ill patient, excluding procedure time. ED Disposition Clinical Impression: Neck pain on left side, Cervical radiculopathy, Left upper quadrant abdominal pain, Left-sided chest pain, Elevated blood pressure reading Fibroid uterus Qualifiers: Uterine leiomyoma location: unspecified location Qualified Code(s): D25.9 - Leiomyoma of uterus, unspecified Disposition: TO HOME OR SELFCARE Is pt being admited?: No Does the pt Need Aspirin: No Condition: Good Instructions: Chest Pain (ED), Cervical Radiculopathy, Hypertension, Adult, Abdominal Pain, Adult, [id number], Nonspecific Chest Pain, Adult Additional Instructions: Do not take metformin for the next 2 days, if patient takes this medication. Patient is most likely experiencing the natural history of cervical radiculopathy/nerve pain. This pain may take weeks, months to improve. It may require physical therapy and/or occupational therapy. Patient should follow-up with a primary care doctor or nuclear weapons specialist, such as Dr. Capellan Or Dr. Yobani Hale Respectively, for presumed cervical radiculopathy, within the next 5 to 7 days. Patient will likely benefit from physical therapy, and complementary therapy, such as massage, acupuncture, and rehabilitation. Patient was found to have persistently elevated blood pressure today, and blood pressure medications have been refilled. Recommend follow-up with a primary care doctor or borematic operator, such as Marliia Saenz Or Dr. Salima Soler, For outpatient follow-up for hypertension. In addition, the patient should follow- up with a borematic operator such as the aforementioned borematic operator for her complaint of chest pain, within the next 3 to 5 days. In addition, patient's contact information and facesheet was transmitted to [facility] cardiology, So the patient should be receiving a phone call from this cardiology group to arrange close outpatient follow-up. Recommend that patient avoid heavy and spicy foods, alcohol, caffeinated substances, minimize consumption of Motrin, ibuprofen, Naprosyn, Aleve. How ever, patient may take these aforementioned medications as needed for severe breakthrough nerve pain. Please return to the emergency room right away with new pain, worsened pain, migration of pain, projectile vomiting, change in mental status, confusion, inability to tolerate liquid feeds, new, worsened or different symptoms not present on the initial emergency room evaluation Patient was also found to have a persistent fibroid uterus, she should therefore follow-up with a editor, such as Dr. [place], for routine feminine health maintenance, within the next 4 to 6 weeks Referrals: GEOFFREY SANTOS MD [Staff Physician] - 7-10 days (Neurosurgery/spine surgery) NEHA SOLER MD [Staff Physician] - 3-5 Days (Cardiology/hypertension) BRIGHT CAPELLAN MD [Staff Physician] - 3-5 Days (Primary care doctor) CHRISTAL JAIME MD [Staff Physician] - 3-5 Days (medical claims processor) Heart Score - HEART Score History: Slightly suspicious EKG: Non-specific Age: 45-65 Risk factors: 1-2 risk factors Troponin: < normal limit HEART Score: 3 - Critical Actions Critical Actions: 0-3 pts:0.9-1.7%risk of adverse cardiac event.Candidate for discharge
[2020-11-16] MEDS ORDERED: METOPROLOL TARTRATE 50 MG TAB PO STA (21:43)
[2020-11-16] MEDS ORDERED: amLODIPine 10 MG TAB PO STA (21:43)
[2020-11-16] MEDS ORDERED: LOSARTAN 25 MG TAB PO ONE (21:43)
[2020-11-16 21:56] LABS: Bilirubin,Urine NEG (Negative); Blood,Urine SM (Negative); Color,Urine Yellow (Yellow); Mucus,Urine FEW /HPF; Protein,Urine <15 mg/dL mg/dL (Negative)
[2020-11-16] MEDS ORDERED: hydrALAZINE 20 MG/1 ML INJ IV ONE (22:50)
--- NOTE | 2020-11-16 23:31 | Cat Scan Report ---
CTA CHEST WITH CONTRAST INDICATION / CLINICAL INFORMATION: Pt states LT sided chest pain, and abd pain, elevated D-dimer. TECHNIQUE: Axial CT images were obtained through the chest after injection of IV contrast. 3 plane [place] P and/or 3D reconstructions were produced. All CT scans at this location are performed using CT dose reduction for ALARA by means of automated exposure control. COMPARISON: None available. FINDINGS: PULMONARY ARTERIES: No central or segmental pulmonary embolus. THORACIC AORTA: No significant abnormality. HEART: Mild cardiac enlargement. No pericardial effusion. ADENOPATHY: No significant adenopathy. LUNGS/PLEURA: Patchy reticular and groundglass opacities at the lung bases most likely reflect atelec tasis. No airspace consolidation. No pleural effusion. No pneumothorax. ADDITIONAL FINDINGS: None. UPPER ABDOMEN: Detailed below. SKELETAL STRUCTURES: No significant osseous abnormality. IMPRESSION: No acute findings in the chest. No evidence of pulmonary embolus. CT ABDOMEN AND PELVIS WITH CONTRAST INDICATION / CLINICAL INFORMATION: Pt states LT sided chest pain, and abd pain, elevated D-dimer. TECHNIQUE: Axial CT images were obtained through the abdomen and pelvis after IV contrast. All CT sc ans at this location are performed using CT dose reduction for ALARA by means of automated exposure c ontrol. COMPARISON: CT from 03/17/2020 and 10/25/2019. FINDINGS: LIVER: No significant abnormality GALLBLADDER/BILIARY TREE: No significant abnormality PANCREAS: No significant abnormality SPLEEN: No significant abnormality ADRENALS: Stable 2 cm probable left adrenal adenoma KIDNEYS / URETER: No significant abnormality URINARY BLADDER: No significant abnormality REPRODUCTIVE ORGANS: Lobulated uterus, most compatible with uterine fibroids. There are cystic change s in the cervix, most consistent with nabothian cysts. Grossly unchanged appearance of small cystic l esions in the pelvis, most pronounced to the left of midline. Trace pelvic free fluid is again seen. STOMACH / SMALL BOWEL: Stomach and small bowel are normal in caliber. No evidence of bowel inflammati on. COLON: The colon is unremarkable. The appendix is normal in caliber. LYMPH NODES: No significant adenopathy. VASCULATURE: No significant abnormality. OTHER: No free air, free fluid, or focal fluid collection is identified. SKELETAL SYSTEM: No acute osseous findings. IMPRESSION: 1. No acute abnormality the abdomen or pelvis. 2. Stable cystic pelvic lesions. Differential is unchanged from prior studies. Signer Name: Cal Jasmine MD Signed: 11/16/2020 11:26 PM Workstation Name: [id number]
[2020-11-16] MEDS ORDERED: KETOROLAC 30 MG/1 ML INJ IV ONE (23:33)
[2020-11-17] MEDS ORDERED: oxyCODONE /ACETAMINOPHEN 5-325MG TAB PO ONE (00:30)
[2020-11-17 01:04] VITALS: BP 177/70
== END 2020-11-17 00:50 | disposition home or self-care (01) ==
LOC: ED 16:41
DX: D25.9 Leiomyoma of uterus, unspecified (principal); M54.12 Radiculopathy, cervical region; R07.89 Other chest pain; R03.0 Elevated blood-pressure reading, without diagnosis of hypertension; R10.12 Left upper quadrant pain; I10 Essential (primary) hypertension; J44.9 Chronic obstructive pulmonary disease, unspecified; Z86.69 Personal history of other diseases of the nervous system and sense organs; Z79.899 Other long term (current) drug therapy; Z98.890 Other specified postprocedural states
CPT/HCPCS: 36415; 71046; 71275; 74177; 80053; 81001; 82550; 83735; 84484; 84702; 85025; 85379; 87086; 93005; 96361; 96374; 96375; 99284; J0360; J1170; J1885; J2800; J7030; J7050; Q9967

== ENCOUNTER 2021-02-20 14:57 | Emergency (ER) | payer BC ==
[2021-02-20] MEDS ORDERED: ASPIRIN 325 MG TAB PO ONE (15:09)
[2021-02-20 15:43] LABS: Hemoglobin 12.1 gm/dl (10.1-14.3); Mean Corpuscular HGB Conc 32 % (30-34); Platelet Count 142 K/mm3 (140-440); Red Blood Count 5.84 M/mm3 (3.65-5.03); Red Cell Distribution Width 19.2 % (13.2-15.2)
--- NOTE | 2021-02-20 15:44 | XRay Report ---
CHEST 2 VIEWS INDICATION / CLINICAL INFORMATION: Left chest pain for one week. History of high blood pressure and s eizures. Left side facial swelling for one day. COMPARISON: 11/16/20. FINDINGS: SUPPORT DEVICES: None. HEART / MEDIASTINUM: The heart size and pulmonary vasculature are normal. The aorta is normal in shahrzad kiera. LUNGS / PLEURA: No significant pulmonary or pleural abnormality. No pneumothorax. ADDITIONAL FINDINGS: No significant additional findings. IMPRESSION: No acute abnormality or significant change. Signer Name: Luis Fernando Gold MD Signed: 02/20/2021 3:40 PM Workstation Name: [id number]
[2021-02-20 15:45] LABS: Mean Corpuscular Volume 65 fl (79-97)
[2021-02-20 15:54] LABS: Basophils # (Auto) 0.1 K/mm3 (0.0-0.1); Eosinophils # (Auto) 0.2 K/mm3 (0.0-0.4); Lymphocytes % (Auto) 20.5 % (13.4-35.0); Monocytes # (Auto) 0.4 K/mm3 (0.0-0.8); Monocytes % (Auto) 6.2 % (0.0-7.3)
[2021-02-20 15:55] LABS: Basophils % (Auto) 1.2 % (0.0-1.8); Lymphocytes # (Auto) 1.4 K/mm3 (1.2-5.4)
[2021-02-20 15:59] LABS: Alanine Aminotransferase 11 units/L (7-56); Blood Urea Nitrogen 23 mg/dL (7-17); Calcium 9.3 mg/dL (8.4-10.2); Hemolysis Index 7
[2021-02-20 16:02] LABS: BUN/Creatinine Ratio 33
--- NOTE | 2021-02-20 16:15 | Event Note ---
ED Screening Note Date of service: 02/20/21 Time: 16:13 ED Screening Note: 50-year-old female patient with history of hypertension and seizure disorder presents to the emergency department with complaints of left-sided chest pain starting this morning. Patient states the pain woke her up from her sleep. Describes the pain as "sharp," worse with deep inhalation. No prior history of MO or stroke. Patient has never undergone stress test. No venous thromboembolism risk factors identified on history. Hypertensive in triage --patient states she typically takes her blood pressure medication at nighttime. General: Awake, appropriately interactive, no acute distress. Neck: Supple. Full range of motion intact. Cardiovascular: Normal peripheral perfusion. Pulmonary: No respiratory distress. Patient is speaking normally without use of accessory muscles. Skin: No apparent rashes or lesions. Neurological: No facial asymmetry. Speech is clear. Follows commands. Patient is alert and oriented. Musculoskeletal: Moves all four extremities spontaneously with normal range of motion. Psych: Cooperative. Appropriate mood and affect. I have greeted and performed a focused rapid initial assessment of this patient. A comprehensive ED assessment and evaluation of the patient, analysis of all test results, and completion of the medical decision-making process will be conducted by additional ED providers. This initial assessment/diagnostic orders/clinical plan/treatment(s) is/are subject to change based on patients health status, clinical progression and re-assessment. Further treatment and workup at subsequent clinical provider's discretion. Patient/guardian urged not to elope from the ED as their condition may be serious if not clinically assessed and managed.
[2021-02-20] MEDS ORDERED: amLODIPine 5 MG TAB PO ONE (20:08)
[2021-02-20] MEDS ORDERED: METOPROLOL TARTRATE 50 MG TAB PO ONE (20:09)
--- NOTE | 2021-02-20 21:22 | Emergency Department Report ---
ED Chest Pain HPI - General Chief Complaint: Chest Pain Stated Complaint: CHEST PAIN/FACE SWOLLEN Time Seen by Provider: 02/20/21 21:09 Source: patient Mode of arrival: Ambulatory Limitations: No Limitations - History of Present Illness Initial Comments: 30-year-old female, history of hypertension, seizure disorders, presents to ED with chest pain. Patient states she awoke this morning with left chest and back pain. Pain is worse with movement, deep breath, palpation, movement of the left arm. Pain is sharp in nature. Patient denies any cough, fever, shortness of breath, nausea or vomiting, leg pain or swelling. Patient also states when she awoke this morning she has some swelling to the left side of her face, however it is now resolved. Patient denies any facial or dental pain. MD Complaint: chest pain -: This morning Onset: during rest Pain Location: left chest Pain Radiation: back Severity: moderate Quality: sharp Consistency: constant Improves With: remaining still Worsens With: inspiration, palpation, movement re: denies: nausea, vomting, diaphoresis, dyspnea Other Symptoms: denies: cough, fever, leg swelling - Related Data Home Medications Medication Instructions Recorded Confirmed Last Taken amLODIPine 20 mg PO DAILY 12/26/18 02/28/20 02/17/20 Previous Rx's Medication Instructions Recorded Last Taken Type Esomeprazole Magnesium [NexIUM] 40 mg PO QDAY #30 capsule. 10/25/19 02/16/20 Rx methylPREDNISolone [Medrol 4MG 4 mg PO DAILY 6 Days #1 tab.ds.pk 03/09/20 Unknown Rx DOSEPAK (21 tabs)] Acetaminophen [Acetaminophen 8 650 mg PO Q8H PRN #12 tablet.er 03/17/20 Unknown Rx Hour] Ondansetron [Zofran ODT TAB] 4 mg PO Q8HR PRN #12 tab.rapdis 03/17/20 Unknown Rx Naproxen [EC-Naprosyn] 500 mg PO BID PRN #14 tablet. 06/04/20 Unknown Rx Ibuprofen [Motrin 800 MG tab] 800 mg PO Q8HR PRN #14 tablet 06/28/20 Unknown Rx levETIRAcetam [Keppra TAB] 750 mg PO BID #60 tablet 06/28/20 Unknown Rx Albuterol Mdi (or & Nicu Only) 1 puff IH Q4-6H PRN #1 inha 10/09/20 Unknown Rx [ProAir HFA Inhaler] Montelukast [Singulair] 10 mg PO QPM #14 tablet 07/01/20 Unknown Rx methOCARBAMOL [Robaxin TAB] 500 mg PO BID #20 tab 08/18/20 Unknown Rx Cyclobenzaprine HCl [Flexeril 5 MG 5 mg PO TID #14 tab 11/07/20 Unknown Rx TAB] HYDROcodone/APAP 5-325 [[place] 1 - 2 each PO Q6HR PRN #14 tablet 11/07/20 Unknown Rx 5-325 mg TAB] Ibuprofen [Motrin 800 MG tab] 800 mg PO Q8HR PRN #20 tablet 11/07/20 Unknown Rx Acetaminophen [Non-Aspirin Extra 500 mg PO Q6HR PRN #30 tablet 11/17/20 Unknown Rx Strength] Losartan [Cozaar] 1 tab PO DAILY #30 11/17/20 Unknown Rx Metoprolol [Lopressor TAB] 50 mg PO DAILY #30 11/17/20 Unknown Rx Morphine Sulfate [Morphine Sulfate 7.5 mg PO Q6HR PRN #10 tablet 11/17/20 Unknown Rx IR] amLODIPine 10 mg PO DAILY #30 tablet 11/17/20 Unknown Rx Naproxen [Naprosyn] 500 mg PO BID #20 tablet 02/21/21 Unknown Rx methOCARBAMOL [Robaxin TAB] 500 mg PO Q8HR PRN #20 tablet 02/21/21 Unknown Rx Allergies Allergy/AdvReac Type Severity Reaction Status Date / Time No Known Allergies Allergy Verified 02/20/21 15:01 Heart Score - HEART Score History: Slightly suspicious EKG: Normal Age: 45-65 Risk factors: 1-2 risk factors Troponin: < normal limit HEART Score: 2 - EKG Read Time Time EKG Completed: 15:05 EKG Read Time: 21:20 ED Review of Systems ROS: Stated complaint: CHEST PAIN/FACE SWOLLEN Other details as noted in HPI Comment: All other systems reviewed and negative Constitutional: denies: fever Respiratory: denies: cough, shortness of breath Cardiovascular: chest pain Gastrointestinal: denies: nausea, vomiting Musculoskeletal: other (Denies leg pain and swelling) ED Past Medical Hx - Past Medical History Hx Hypertension: Yes Hx Seizures: Yes Hx COPD: Yes Additional medical history: Seizure - Surgical History Additional Surgical History: right ovary removal (2014) - Social History Smoking Status: Never Smoker Substance Use Type: None - Medications Home Medications: Home Medications Medication Instructions Recorded Confirmed Last Taken Type amLODIPine 20 mg PO DAILY 12/26/18 02/28/20 02/17/20 History Esomeprazole Magnesium [NexIUM] 40 mg PO QDAY #30 capsule. 10/25/19 02/28/20 02/16/20 Rx methylPREDNISolone [Medrol 4MG 4 mg PO DAILY 6 Days #1 tab.ds.pk 03/09/20 Unknown Rx DOSEPAK (21 tabs)] Acetaminophen [Acetaminophen 8 650 mg PO Q8H PRN #12 tablet.er 03/17/20 Unknown Rx Hour] Ondansetron [Zofran ODT TAB] 4 mg PO Q8HR PRN #12 tab.rapdis 03/17/20 Unknown Rx Naproxen [EC-Naprosyn] 500 mg PO BID PRN #14 tablet. 06/04/20 Unknown Rx Ibuprofen [Motrin 800 MG tab] 800 mg PO Q8HR PRN #14 tablet 06/28/20 Unknown Rx levETIRAcetam [Keppra TAB] 750 mg PO BID #60 tablet 06/28/20 Unknown Rx Albuterol Mdi (or & Nicu Only) 1 puff IH Q4-6H PRN #1 inha 07/01/20 Unknown Rx [ProAir HFA Inhaler] Montelukast [Singulair] 10 mg PO QPM #14 tablet 07/01/20 Unknown Rx methOCARBAMOL [Robaxin TAB] 500 mg PO BID #20 tab 08/18/20 Unknown Rx Cyclobenzaprine HCl [Flexeril 5 MG 5 mg PO TID #14 tab 11/07/20 Unknown Rx TAB] HYDROcodone/APAP 5-325 [[place] 1 - 2 each PO Q6HR PRN #14 tablet 11/07/20 Unknown Rx 5-325 mg TAB] Ibuprofen [Motrin 800 MG tab] 800 mg PO Q8HR PRN #20 tablet 11/07/20 Unknown Rx Acetaminophen [Non-Aspirin Extra 500 mg PO Q6HR PRN #30 tablet 11/17/20 Unknown Rx Strength] Losartan [Cozaar] 1 tab PO DAILY #30 11/17/20 Unknown Rx Metoprolol [Lopressor TAB] 50 mg PO DAILY #30 11/17/20 Unknown Rx Morphine Sulfate [Morphine Sulfate 7.5 mg PO Q6HR PRN #10 tablet 11/17/20 Unknown Rx IR] amLODIPine 10 mg PO DAILY #30 tablet 11/17/20 Unknown Rx Naproxen [Naprosyn] 500 mg PO BID #20 tablet 02/21/21 Unknown Rx methOCARBAMOL [Robaxin TAB] 500 mg PO Q8HR PRN #20 tablet 02/21/21 Unknown Rx ED Physical Exam - General Limitations: No Limitations General appearance: alert, in no apparent distress - Head Head exam: Present: atraumatic, normocephalic - Eye Eye exam: Present: normal appearance, EOMI. Absent: periorbital swelling, periorbital tenderness - ENT ENT exam: Present: mucous membranes moist - Neck Neck exam: Present: normal inspection, full ROM - Respiratory Respiratory exam: Present: normal lung sounds bilaterally, chest wall tenderness. Absent: respiratory distress - Cardiovascular Cardiovascular Exam: Present: regular rate, normal rhythm - GI/Abdominal GI/Abdominal exam: Present: soft. Absent: distended, tenderness - Extremities Exam Extremities exam: Present: normal inspection - Back Exam Back exam: Present: tenderness. Absent: vertebral tenderness - Neurological Exam Neurological exam: Present: alert, oriented X3 - Psychiatric Psychiatric exam: Present: normal affect, normal mood - Skin Skin exam: Present: warm, dry, intact, normal color ED Course Vital Signs 02/20/21 02/20/21 02/20/21 15:01 20:51 21:30 Temperature 97.8 F 98.5 F Pulse Rate 79 61 64 Respiratory 18 16 Rate Blood Pressure 214/103 192/85 Blood Pressure 205/85 [Left] O2 Sat by Pulse 96 98 Oximetry 02/20/21 02/20/21 02/20/21 21:41 21:46 22:00 Temperature Pulse Rate 64 58 L 52 L Respiratory 15 13 Rate Blood Pressure 205/85 197/82 197/82 Blood Pressure [Left] O2 Sat by Pulse 98 98 Oximetry 02/20/21 02/20/21 02/20/21 22:16 22:30 22:43 Temperature Pulse Rate 51 L 63 Respiratory 19 21 18 Rate Blood Pressure 197/82 197/82 Blood Pressure [Left] O2 Sat by Pulse 98 96 Oximetry 02/20/21 02/20/21 02/20/21 22:46 23:00 23:16 Temperature Pulse Rate 61 66 68 Respiratory 24 15 19 Rate Blood Pressure 167/77 158/85 166/76 Blood Pressure [Left] O2 Sat by Pulse 98 Oximetry 02/20/21 02/21/21 02/21/21 23:30 00:22 00:30 Temperature Pulse Rate 64 58 L 51 L Respiratory 15 15 18 Rate Blood Pressure 166/76 152/72 152/72 Blood Pressure [Left] O2 Sat by Pulse Oximetry 02/21/21 02/21/21 00:46 01:00 Temperature Pulse Rate 57 L 57 L Respiratory 17 17 Rate Blood Pressure 152/72 152/72 Blood Pressure [Left] O2 Sat by Pulse Oximetry KYLE score - Kyle Score Age > 65: (0) No Aspirin use within the Past 7 Days: (0) No 3 or more CAD Risk Factors: (0) No 2 or more Angina events in past 24 hrs: (0) No Known CAD with more than 50% Stenosis: (0) No Elevated Cardiac Markers: (0) No ST Deviation Greater than 0.5mm: (0) No KYLE Score: 0 ED Medical Decision Making - Lab Data Result diagrams: 02/20/21 15:11 02/20/21 15:11 - EKG Data -: EKG Interpreted by Oh EKG shows normal: sinus rhythm, axis, intervals, QRS complexes, ST-T waves Rate: normal - EKG Data Interpretation: no acute changes - Radiology Data Radiology results: report reviewed, image reviewed Critical care attestation.: If time is entered above; I have spent that time in minutes in the direct care of this critically ill patient, excluding procedure time. ED Disposition Clinical Impression: Chest pain Disposition: - TO HOME OR SELFCARE Is pt being admited?: No Condition: Stable Instructions: Chest Wall Pain, [id number], Nonspecific Chest Pain, Adult, [id number], Pleurisy, [id number] Prescriptions: Naproxen [Naprosyn] 500 mg PO BID #20 tablet methOCARBAMOL [Robaxin TAB] 500 mg PO Q8HR PRN #20 tablet PRN Reason: Muscle Spasm Referrals: PRIMARY CARE, [Primary Care Provider] - 3-5 Days Time of Disposition: 00:46
[2021-02-20] MEDS ORDERED: cloNIDine 0.2 MG TAB PO ONE (21:35)
[2021-02-20 21:39] LABS: INR 0.88 (0.87-1.13)
[2021-02-20 21:40] LABS: Partial Thromboplastin Time 31.6 Sec. (24.2-36.6)
[2021-02-20] MEDS ORDERED: KETOROLAC 30 MG/1 ML INJ IV ONE (21:46)
--- NOTE | 2021-02-21 00:44 | Nuclear Medicine Report ---
NUCLEAR MEDICINE PERFUSION LUNG SCAN INDICATION / CLINICAL INFORMATION: chest pain. TECHNIQUE: 5.5 mCi of Tc-99m MAA were given by IV. COMPARISON: Chest radiograph dated today's date . FINDINGS: PERFUSION: No significant perfusion defects. ADDITIONAL FINDINGS: None. IMPRESSION: 1. Low probability for pulmonary embolism. Signer Name: Nic Wright MD Signed: 02/21/2021 12:40 AM Workstation Name: [id number]
[2021-02-21 01:03] VITALS: BP 152/72
--- NOTE | 2021-02-22 10:12 | Electrocardiograph Report ---
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
== END 2021-02-21 01:25 | disposition home or self-care (01) ==
LOC: ED 14:57
DX: R07.89 Other chest pain (principal); I10 Essential (primary) hypertension; R56.9 Unspecified convulsions; J44.9 Chronic obstructive pulmonary disease, unspecified; Z98.890 Other specified postprocedural states; Z79.1 Long term (current) use of non-steroidal anti-inflammatories (NSAID); Z79.899 Other long term (current) drug therapy
CPT/HCPCS: 36415; 71046; 78580; 80053; 84484; 84703; 85007; 85025; 85379; 85610; 85730; 93005; 96374; 99284; A9540; J1885

== ENCOUNTER 2021-04-24 13:07 | Emergency (ER) | payer BC ==
[2021-04-24 15:23] VITALS: BP 231/97
== END 2021-04-25 15:19 ==
LOC: ED 13:07
DX: S69.91XA Unspecified injury of right wrist, hand and finger(s), initial encounter (principal); Z53.21 Procedure and treatment not carried out due to patient leaving prior to being seen by health care provider; Y93.89 Activity, other specified; Y92.89 Other specified places as the place of occurrence of the external cause; Y99.8 Other external cause status

== ENCOUNTER 2021-06-29 09:35 | Emergency (ER) | payer BC ==
[2021-06-29 10:24] VITALS: BP 193/91
[2021-06-29] MEDS ORDERED: methylPREDNISolone Sod Succinate 125 MG/2 ML INJ IV ONE (10:35)
[2021-06-29] MEDS ORDERED: ALBUTEROL 2.5 MG/3 ML NEBU IH ONE (10:35)
[2021-06-29] MEDS ORDERED: IPRATROPIUM 0.02% NEBU 2.5 ML IH ONE (10:38)
--- NOTE | 2021-06-29 10:38 | Emergency Department Report ---
- General Chief Complaint: Upper Respiratory Infection Stated Complaint: HEADACHE/WHEEZING/BODYPAIN Time Seen by Provider: 06/29/21 10:12 Source: patient Mode of arrival: Ambulatory Limitations: No Limitations - History of Present Illness Initial Comments: 50-year-old female with a past medical history of hypertension, seizure disorder, and COPD presents to the ER today with complaints of URI symptoms cough and wheezing. Patient states that her symptoms about 2 days ago. She reports productive cough, wheezing, headache, generalized body aches, rhinorrhea and nasal congestion. She denies any shortness of breath or chest pain. She states that she has been using her nebulizer treatments as needed. She is not on home O2. She reports that yesterday she had few episodes of vomiting and diarrhea, but this has since resolved. She denies any abdominal pain. She denies any fever or chills at home. She denies any apparent ill contacts or known COVID-19 contacts or recent travel. She has not gotten any of the COVID- 19 vaccines. She states that she has never been admitted for her COPD in the past. She does have a history of tobacco use. MD Complaint: cough, rhinorrhea, other (wheezingv) - Related Data Home Medications Medication Instructions Recorded Confirmed Last Taken amLODIPine 20 mg PO DAILY 12/26/18 02/28/20 02/17/20 Previous Rx's Medication Instructions Recorded Last Taken Type Esomeprazole Magnesium [NexIUM] 40 mg PO QDAY #30 capsule. 10/25/19 02/16/20 Rx Acetaminophen [Acetaminophen 8 650 mg PO Q8H PRN #12 tablet.er 03/17/20 Unknown Rx Hour] Ibuprofen [Motrin 800 MG tab] 800 mg PO Q8HR PRN #14 tablet 06/28/20 Unknown Rx levETIRAcetam [Keppra TAB] 750 mg PO BID #60 tablet 06/28/20 Unknown Rx Montelukast [Singulair] 10 mg PO QPM #14 tablet 07/01/20 Unknown Rx Cyclobenzaprine HCl [Flexeril 5 MG 5 mg PO TID #14 tab 11/07/20 Unknown Rx TAB] HYDROcodone/APAP 5-325 [[place] 1 - 2 each PO Q6HR PRN #14 tablet 11/07/20 Unknown Rx 5-325 mg TAB] Acetaminophen [Non-Aspirin Extra 500 mg PO Q6HR PRN #30 tablet 11/17/20 Unknown Rx Strength] Losartan [Cozaar] 1 tab PO DAILY #30 11/17/20 Unknown Rx Metoprolol [Lopressor TAB] 50 mg PO DAILY #30 11/17/20 Unknown Rx Morphine Sulfate [Morphine Sulfate 7.5 mg PO Q6HR PRN #10 tablet 11/17/20 Unknown Rx IR] amLODIPine 10 mg PO DAILY #30 tablet 11/17/20 Unknown Rx ALBUTEROL NEB's [Proventil 0.083% 2.5 mg IH QID PRN #30 neb 06/29/21 Unknown Rx NEBS] Albuterol Mdi (or & Nicu Only) 2 puff IH Q4-6H PRN #1 inha 06/29/21 Unknown Rx [ProAir HFA Inhaler] Azithromycin [Zithromax Z-SHUKRI] 250 mg PO DAILY #1 pack 06/29/21 Unknown Rx Benzonatate [Tessalon Perles] 100 mg PO Q8HR PRN #30 capsule 06/29/21 Unknown Rx Ibuprofen [Motrin 800 MG tab] 800 mg PO Q8HR PRN #20 tablet 06/29/21 Unknown Rx Allergies Allergy/AdvReac Type Severity Reaction Status Date / Time No Known Allergies Allergy Verified 02/20/21 15:01 ED Review of Systems ROS: Stated complaint: HEADACHE/WHEEZING/BODYPAIN Other details as noted in HPI Comment: All other systems reviewed and negative Constitutional: denies: chills, fever ENT: congestion, other (rhinorrhea ). denies: ear pain, throat pain, dental pain, hearing loss, epistaxis Respiratory: cough. denies: shortness of breath, SOB with exertion, SOB at rest, wheezing Cardiovascular: denies: chest pain, palpitations Gastrointestinal: nausea, vomiting, diarrhea. denies: abdominal pain, c onstipation, hematemesis, hematochezia Genitourinary: denies: urgency, dysuria, frequency, hematuria, discharge, abnormal menses, dyspareunia Musculoskeletal: myalgia. denies: back pain, joint swelling, arthralgia Skin: denies: rash, lesions, change in color, change in hair/nails, pruritus Neurological: denies: headache, weakness, numbness, paresthesias, confusion, abnormal gait Psychiatric: denies: anxiety, depression, auditory hallucinations, visual hallucinations, homicidal thoughts, suicidal thoughts Hematological/Lymphatic: denies: easy bleeding, easy bruising, swollen glands ED Past Medical Hx - Past Medical History Previous Medical History?: Yes Hx Hypertension: Yes Hx Seizures: Yes Hx COPD: Yes Additional medical history: Seizure - Surgical History Past Surgical History?: Yes Additional Surgical History: right ovary removal (2014) - Social History Smoking Status: Never Smoker Substance Use Type: None - Medications Home Medications: Home Medications Medication Instructions Recorded Confirmed Last Taken Type amLODIPine 20 mg PO DAILY 12/26/18 02/28/20 02/17/20 History Esomeprazole Magnesium [NexIUM] 40 mg PO QDAY #30 capsule.dr 10/25/19 02/28/20 02/16/20 Rx Acetaminophen [Acetaminophen 8 650 mg PO Q8H PRN #12 tablet.er 03/17/20 Unknown Rx Hour] Ibuprofen [Motrin 800 MG tab] 800 mg PO Q8HR PRN #14 tablet 06/28/20 Unknown Rx levETIRAcetam [Keppra TAB] 750 mg PO BID #60 tablet 06/28/20 Unknown Rx Montelukast [Singulair] 10 mg PO QPM #14 tablet 07/01/20 Unknown Rx Cyclobenzaprine HCl [Flexeril 5 MG 5 mg PO TID #14 tab 11/07/20 Unknown Rx TAB] HYDROcodone/APAP 5-325 [[place] 1 - 2 each PO Q6HR PRN #14 tablet 11/07/20 Unknown Rx 5-325 mg TAB] Acetaminophen [Non-Aspirin Extra 500 mg PO Q6HR PRN #30 tablet 11/17/20 Unknown Rx Strength] Losartan [Cozaar] 1 tab PO DAILY #30 11/17/20 Unknown Rx Metoprolol [Lopressor TAB] 50 mg PO DAILY #30 11/17/20 Unknown Rx Morphine Sulfate [Morphine Sulfate 7.5 mg PO Q6HR PRN #10 tablet 11/17/20 Unknown Rx IR] amLODIPine 10 mg PO DAILY #30 tablet 11/17/20 Unknown Rx ALBUTEROL NEB's [Proventil 0.083% 2.5 mg IH QID PRN #30 neb 06/29/21 Unknown Rx NEBS] Albuterol Mdi (or & Nicu Only) 2 puff IH Q4-6H PRN #1 inha 06/29/21 Unknown Rx [ProAir HFA Inhaler] Azithromycin [Zithromax Z-SHUKRI] 250 mg PO DAILY #1 pack 06/29/21 Unknown Rx Benzonatate [Tessalon Perles] 100 mg PO Q8HR PRN #30 capsule 06/29/21 Unknown Rx Ibuprofen [Motrin 800 MG tab] 800 mg PO Q8HR PRN #20 tablet 06/29/21 Unknown Rx ED Physical Exam - General Limitations: No Limitations General appearance: alert, in no apparent distress - Head Head exam: Present: atraumatic, normocephalic, normal inspection - Eye Eye exam: Present: normal appearance, PERRL, EOMI Pupils: Present: normal accommodation - Neck Neck exam: Present: normal inspection, full ROM. Absent: meningismus - Respiratory Respiratory exam: Present: normal lung sounds bilaterally, wheezes (diffuse exp wheezing ). Absent: respiratory distress, rales - Cardiovascular Cardiovascular Exam: Present: regular rate, normal rhythm, normal heart sounds - GI/Abdominal GI/Abdominal exam: Present: soft. Absent: distended, tenderness, guarding, rebound, rigid - Neurological Exam Neurological exam: Present: alert, oriented X3, CN II-XII intact, normal gait - Psychiatric Psychiatric exam: Present: normal affect, normal mood - Skin Skin exam: Present: intact ED Course Vital Signs 06/29/21 06/29/21 09:54 13:19 Temperature 99.0 F Pulse Rate 93 H Respiratory 20 20 Rate Blood Pressure 193/91 O2 Sat by Pulse 95 97 Oximetry ED Medical Decision Making - Lab Data Result diagrams: 06/29/21 10:44 06/29/21 10:44 - Radiology Data Radiology results: report reviewed Patient: JOJO DE SANTIAGO MR#: [id number] : 1970 Acct:[id number] Age/Sex: 50 / F ADM Date: 06/29/21 Loc: ED Attending Dr: Ordering Physician: MARITZA GROSS Date of Service: 06/29/21 Procedure(s): XR chest routine 2V Accession Number(s): [id number] cc: MARITZA GROSS Fluoro Time In Minutes: CHEST 2 VIEWS INDICATION / CLINICAL INFORMATION: cough/wheezing. COMPARISON: 02/20/2021 FINDINGS: SUPPORT DEVICES: None. HEART / MEDIASTINUM: No significant abnormality. LUNGS / PLEURA: No significant pulmonary or pleural abnormality. No pneumothorax. ADDITIONAL FINDINGS: No significant additional findings. IMPRESSION: 1. No acute findings. Signer Name: Clayton Burgess MD Signed: 06/29/2021 11:00 AM Workstation Name: [id number] Transcribed By: MARITZA Dictated By: Clayton Burgess MD Electronically Authenticated By: Clayton Burgess MD Signed Date/Time: 06/29/211099 DD/ 99 TD/TT: - Medical Decision Making 1420: Chest x-ray shows nothing acute. Labs unremarkable. Patient reports feeling somewhat better after duoneb treatment, IV solumedrol and IV mag. Repeat Chest exam shows that she is still have diffuse expiratory wheezing but with some improvement. Patient currently not in any respiratory distress. She was ambulated by me, after receiving her after treatments, and maintained an O2 sat of 92% on room air and a heart rate of 109. She had no complaints of shortness of breath, she was not in any respiratory distress and she ambulated well with a normal gait. Did offer to give patient another breathing treatment, but she states that she would rather go home and do treatments at home. Informed patient that she will be discharged home with a prescription for prednisone, and refill on her albuterol nebulizer meds as well as an MDI inhaler, Zithromax and medication to help her cough and body aches. Patient was instructed to have a COVID-19 test at a local pharmacy or urgent care when she leaves here today, and in the meantime she should quarantine at home until she gets the results of the test. Also recommended that she purchase a pulse oximeter, and if her O2 sat stays persistently below 90/91% and her sy mptoms worsens she needs to return immediately to the ER. Patient expressed understanding of all instructions and agree with plan. Patient was stable at time of discharge. - Differential Diagnosis COVID-19, pneumonia, bronchitis, ARDS with hypoxia, COPD exacerbation Critical care attestation.: If time is entered above; I have spent that time in minutes in the direct care of this critically ill patient, excluding procedure time. ED Disposition Clinical Impression: Suspected COVID-19 virus infection, COPD exacerbation, URI (upper respiratory infection) Disposition: HOME / SELF CARE / HOMELESS Is pt being admited?: No Does the pt Need Aspirin: No Condition: Stable Instructions: Chronic Obstructive Pulmonary Disease Exacerbation, [id number], Upper Respiratory Infection, Adult, COVID-19: How to Protect Yourself and Others - CDC, Chronic Obstructive Pulmonary Disease (ED) Additional Instructions: Recommend that you get a COVID-19 test when you leave here today at either a local pharmacy or urgent care. Take the medication prescribed here today as directed. Recommend that you purchase the pulse ox on motor, and monitor your oxygen level and if your O2 drops and is maintained below 90/91% and if your symptoms worsen you need to return to the ER. In the meantime I do recommend that you quarantine at home until you get the results of your COVID-19 test and follow-up closely with your PCP. The symptoms are important that you try to stop smoking. Prescriptions: Ibuprofen [Motrin 800 MG tab] 800 mg PO Q8HR PRN #20 tablet PRN Reason: Pain, Moderate (4-6) Albuterol Mdi (or & Nicu Only) [ProAir HFA Inhaler] 2 puff IH Q4-6H PRN #1 inha PRN Reason: Shortness of breath ALBUTEROL NEB's [Proventil 0.083% NEBS] 2.5 mg IH QID PRN #30 neb PRN Reason: Wheezing Benzonatate [Tessalon Perles] 100 mg PO Q8HR PRN #30 capsule PRN Reason: Cough Azithromycin [Zithromax Z-SHUKRI] 250 mg PO DAILY #1 pack Referrals: DANNA ANDREA MD [Primary Care Provider] - 3-5 Days Forms: Work/School Release Form(ED) Time of Disposition: 14:31 Print Language: ALBANIAN
--- NOTE | 2021-06-29 11:04 | XRay Report ---
CHEST 2 VIEWS INDICATION / CLINICAL INFORMATION: cough/wheezing. COMPARISON: 02/20/2021 FINDINGS: SUPPORT DEVICES: None. HEART / MEDIASTINUM: No significant abnormality. LUNGS / PLEURA: No significant pulmonary or pleural abnormality. No pneumothorax. ADDITIONAL FINDINGS: No significant additional findings. IMPRESSION: 1. No acute findings. Signer Name: Clayton Burgess MD Signed: 06/29/2021 11:00 AM Workstation Name: [id number]
[2021-06-29 11:25] LABS: Basophils # (Auto) 0.1 K/mm3 (0.0-0.1); Basophils % (Auto) 0.7 % (0.0-1.8); Eosinophils # (Auto) 0.2 K/mm3 (0.0-0.4); Eosinophils % (Auto) 2.8 % (0.0-4.3); Hematocrit 42.1 % (30.3-42.9); Hemoglobin 13.6 gm/dl (10.1-14.3); Lymphocytes # (Auto) 0.9 K/mm3 (1.2-5.4); Lymphocytes % (Auto) 11.1 % (13.4-35.0); Mean Corpuscular HGB Conc 32 % (30-34); Monocytes # (Auto) 0.5 K/mm3 (0.0-0.8); Monocytes % (Auto) 6.5 % (0.0-7.3); Red Blood Count 6.44 M/mm3 (3.65-5.03); Red Cell Distribution Width 19.7 % (13.2-15.2)
[2021-06-29 11:43] LABS: Alanine Aminotransferase 14 units/L (7-56); Albumin 4.3 g/dL (3.9-5); Blood Urea Nitrogen 14 mg/dL (7-17); Hemolysis Index 102
[2021-06-29 11:45] LABS: BUN/Creatinine Ratio 20
[2021-06-29 11:51] LABS: Mean Corpuscular Volume 65 fl (79-97)
[2021-06-29] MEDS ORDERED: ACETAMINOPHEN 325 MG TAB PO ONE (11:54)
[2021-06-29] MEDS ORDERED: KETOROLAC 30 MG/1 ML INJ IV ONE (11:55)
[2021-06-29] MEDS ORDERED: MAGNESIUM SULFATE 2 GM/50 ML BAG IV ONE (13:01)
[2021-06-29 18:22] LABS: Platelet Count 126 K/mm3 (140-440)
== END 2021-06-29 14:48 | disposition home or self-care (01) ==
LOC: ED 09:35
DX: J44.1 Chronic obstructive pulmonary disease with (acute) exacerbation (principal); J06.9 Acute upper respiratory infection, unspecified; Z20.822 Contact with and (suspected) exposure to COVID-19; I10 Essential (primary) hypertension; R56.9 Unspecified convulsions; Z98.890 Other specified postprocedural states
CPT/HCPCS: 36415; 71046; 80053; 83735; 85025; 94640; 96365; 96375; 99284; J1885; J2930; J3475; 96374

== ENCOUNTER 2021-09-13 09:36 | Emergency (ER) | payer BC ==
[2021-09-13] MEDS ORDERED: SODIUM CHLORIDE 0.9% 1000 ML 1,000 ML IV ONE (11:42)
[2021-09-13] MEDS ORDERED: diphenhydrAMINE 50 MG/ML VIAL IV ONE (11:42)
[2021-09-13] MEDS ORDERED: METOCLOPRAMIDE 10 MG/2 ML INJ IV ONE (11:42)
--- NOTE | 2021-09-13 11:45 | Emergency Department Report ---
ED Headache HPI - General Chief Complaint: Headache Stated Complaint: HELLER Time Seen by Provider: 09/13/21 11:33 Source: patient - History of Present Illness Initial Comments: 50-year-old female with a past medical history of seizure disorder and hypertension presents to the ER today with complaints of headache. Patient states that she has been having bitemporal and occipital headache constantly for the past 3 days. She describes as a sharp pain. She is unable to describe any modifying factors. She denies any associated URI symptoms. She denies any recent head injury. She reports no nausea or vomiting. She states that this morning was at work she started to feel dizzy and felt like she was about to pass out and so came here to the ER to get evaluated. She admits that she has had similar headaches before in the past and usually occurs when her blood pressure is elevated. She also has a neurologist who she sees every 3 months for seizure disorders and she has mentioned these headaches to her neurologist. She states that she was not given an official diagnosis as a cause of her heada ches but she was given "a medication" that she supposed to take every night for the headaches. She states that she has been taking it without much relief. She denies any neck pain, fever, chills or any additional symptoms at this time. Quality: moderate Allergies/Adverse Reactions: Allergies No Known Allergies Allergy (Verified 02/20/21 15:01) Home Medications: Ambulatory Orders amLODIPine 20 mg PO DAILY 12/26/18 Esomeprazole Magnesium [NexIUM] 40 mg PO QDAY #30 capsule. 10/25/19 Acetaminophen [Acetaminophen 8 Hour] 650 mg PO Q8H PRN #12 tablet.er 03/17/20 levETIRAcetam [Keppra TAB] 750 mg PO BID #60 tablet 06/28/20 Montelukast [Singulair] 10 mg PO QPM #14 tablet 07/01/20 Cyclobenzaprine HCl [Flexeril 5 MG TAB] 5 mg PO TID #14 tab 11/07/20 Acetaminophen [Non-Aspirin Extra Strength] 500 mg PO Q6HR PRN #30 tablet 11/17/20 Losartan [Cozaar] 1 tab PO DAILY #30 11/17/20 Metoprolol [Lopressor TAB] 50 mg PO DAILY #30 11/17/20 Morphine Sulfate [Morphine Sulfate IR] 7.5 mg PO Q6HR PRN #10 tablet 11/17/20 amLODIPine 10 mg PO DAILY #30 tablet 11/17/20 ALBUTEROL NEB's [Proventil 0.083% NEBS] 2.5 mg IH QID PRN #30 neb 06/29/21 Albuterol Mdi (or & Nicu Only) [ProAir HFA Inhaler] 2 puff IH Q4-6H PRN #1 inha 06/29/21 Azithromycin [Zithromax Z-SHUKRI] 250 mg PO DAILY #1 pack 06/29/21 Benzonatate [Tessalon Perles] 100 mg PO Q8HR PRN #30 capsule 06/29/21 Butalb/Acetamin/Caff 50-325-40 [Fioricet 50-325-40] 1 each PO Q4H PRN #12 tablet 09/13/21 ED Review of Systems ROS: Stated complaint: HELLER Other details as noted in HPI Comment: All other systems reviewed and negative Constitutional: denies: chills, fever Eyes: denies: eye pain, eye discharge, vision change ENT: denies: ear pain, throat pain, dental pain, hearing loss, epistaxis, congestion Respiratory: denies: cough, shortness of breath, SOB with exertion, SOB at rest, wheezing Cardiovascular: denies: chest pain, palpitations Gastrointestinal: denies: abdominal pain, nausea, diarrhea, constipation, hematemesis, hematochezia Genitourinary: denies: urgency, dysuria, frequency, hematuria, discharge, abnormal menses, dyspareunia Musculoskeletal: denies: back pain, joint swelling, arthralgia Skin: denies: rash, lesions, change in color, change in hair/nails, pruritus Neurological: headache, other (dizzy, near syncope). denies: numbness, paresthesias, confusion, abnormal gait, vertigo Psychiatric: denies: anxiety, depression, auditory hallucinations, visual hallucinations, homicidal thoughts, suicidal thoughts Hematological/Lymphatic: denies: easy bleeding, easy bruising, swollen glands ED Past Medical Hx - Past Medical History Hx Hypertension: Yes Hx Seizures: Yes Hx COPD: Yes Additional medical history: Seizure - Surgical History Additional Surgical History: right ovary removal (2014) - Social History Smoking Status: Never Smoker Substance Use Type: None - Medications Home Medications: Home Medications Medication Instructions Recorded Confirmed Last Taken Type amLODIPine 20 mg PO DAILY 12/26/18 02/28/20 02/17/20 History Esomeprazole Magnesium [NexIUM] 40 mg PO QDAY #30 capsule. 10/25/19 02/28/20 02/16/20 Rx Acetaminophen [Acetaminophen 8 650 mg PO Q8H PRN #12 tablet.er 03/17/20 Unknown Rx Hour] levETIRAcetam [Keppra TAB] 750 mg PO BID #60 tablet 06/28/20 Unknown Rx Montelukast [Singulair] 10 mg PO QPM #14 tablet 07/01/20 Unknown Rx Cyclobenzaprine HCl [Flexeril 5 MG 5 mg PO TID #14 tab 11/07/20 Unknown Rx TAB] Acetaminophen [Non-Aspirin Extra 500 mg PO Q6HR PRN #30 tablet 11/17/20 Unknown Rx Strength] Losartan [Cozaar] 1 tab PO DAILY #30 11/17/20 Unknown Rx Metoprolol [Lopressor TAB] 50 mg PO DAILY #30 11/17/20 Unknown Rx Morphine Sulfate [Morphine Sulfate 7.5 mg PO Q6HR PRN #10 tablet 11/17/20 U nknown Rx IR] amLODIPine 10 mg PO DAILY #30 tablet 11/17/20 Unknown Rx ALBUTEROL NEB's [Proventil 0.083% 2.5 mg IH QID PRN #30 neb 06/29/21 Unknown Rx NEBS] Albuterol Mdi (or & Nicu Only) 2 puff IH Q4-6H PRN #1 inha 06/29/21 Unknown Rx [ProAir HFA Inhaler] Azithromycin [Zithromax Z-SHUKRI] 250 mg PO DAILY #1 pack 06/29/21 Unknown Rx Benzonatate [Tessalon Perles] 100 mg PO Q8HR PRN #30 capsule 06/29/21 Unknown Rx Butalb/Acetamin/Caff 50-325-40 1 each PO Q4H PRN #12 tablet 09/13/21 Unknown Rx [Fioricet 50-325-40] ED Physical Exam - General Limitations: No Limitations General appearance: alert, in no apparent distress - Head Head exam: Present: atraumatic, normocephalic, normal inspection, other (Mild bitemporal ttp with any swelling) - Eye Eye exam: Present: normal appearance, PERRL, EOMI Pupils: Present: normal accommodation - ENT ENT exam: Present: normal exam, mucous membranes dry - Neck Neck exam: Present: normal inspection, full ROM - Respiratory Respiratory exam: Present: normal lung sounds bilaterally. Absent: respiratory distress, wheezes, rales, rhonchi - Cardiovascular Cardiovascular Exam: Present: regular rate, normal rhythm, normal heart sounds - Neurological Exam Neurological exam: Present: alert, oriented X3, CN II-XII intact, normal gait - Psychiatric Psychiatric exam: Present: normal affect, normal mood - Skin Skin exam: Present: intact ED Course Vital Signs 09/13/21 09:41 Temperature 98.4 F Pulse Rate 59 L Respiratory 18 Rate Blood Pressure 144/74 [Right] O2 Sat by Pulse 96 Oximetry ED Medical Decision Making - Lab Data Result diagrams: 09/13/21 12:35 09/13/21 12:35 - EKG Data EKG shows normal: sinus rhythm Rate: normal (54) No standard instances Weed/QRS: left axis deviation - EKG Data Interpretation: normal EKG - Medical Decision Making 1414: Patient states that she feels much better after IV fluids and meds. Currently awake alert oriented x3 with a GCS of 15. She is not toxic or ill- appearing. She is neurologically intact with a normal gait. No meningeal signs on exam. She denies any significant distress. She is hemodynamically stable. Labs reviewed --CBC shows mild leukopenia with a white count 2.6 and mild thrombocytopenia with a platelet count 112; CMP unremarkable; troponin normal; EKG also shows normal sinus rhythm without any signs of a STEMI or significantly acute ischemic changes or dysrhythmias. Reviewed patient past visit, she has had several visits here for headache including having had CTs in the past which were normal. As far as her CBC, today CBC is the first which shows leukopenia and thrombocytopenia which at this time is not specific or require emergent intervention, emergent specialist consult or admission. Repeat head CT also is not indicated at this time. I do not suspect a stroke, intracranial hemorrhage, meningitis or any other intracranial abnormality, notify suspect unstable angina, PE, or any other emergent conditions warranting additional testing or admission at this time. All results were discussed with patient, instructed her that she needs to follow-up with her PCP for repeat CBC, and if her levels are consistent then she will need referral to hematology/infectious disease specialist for further evaluation. She will be given medication for headache. Patient expressed understanding for instructions and agree with plan. Patient stable at time of discharge. Critical care attestation.: If time is entered above; I have spent that time in minutes in the direct care of this critically ill patient, excluding procedure time. ED Disposition Clinical Impression: Headache, Thrombocytopenia, Leukopenia Disposition: HOME / SELF CARE / HOMELESS Is pt being admited?: No Does the pt Need Aspirin: No Condition: Stable Instructions: General Headache Without Cause Additional Instructions: I recommend that you take the Fioricet as prescribed to help with your headache. Your white blood cell count today measured at 2.6 and a platelet count measured at 112, is good readings are considered low but not critical and at this time nonspecific but it is important that you follow-up with your primary care doctor for repeat CBC to recheck the levels and referral to hematology/ID if needed. Return to the ER if at any point your symptoms worsens in any way. Prescriptions: Butalb/Acetamin/Caff 50-325-40 [Fioricet 50-325-40] 1 each PO Q4H PRN #12 tablet PRN Reason: Headache Referrals: PRIMARY CARE, [Primary Care Provider] - 3-5 Days Forms: Work/School Release Form(ED) Time of Disposition: 14:09
[2021-09-13 12:52] LABS: Hematocrit 45.4 % (30.3-42.9); Hemoglobin 13.9 gm/dl (10.1-14.3); Mean Corpuscular HGB Conc 31 % (30-34); Mean Corpuscular Volume 67 fl (79-97); Platelet Count 112 K/mm3 (140-440); Red Blood Count 6.79 M/mm3 (3.65-5.03); Red Cell Distribution Width 17.3 % (13.2-15.2)
[2021-09-13 13:09] LABS: Alanine Aminotransferase 27 units/L (7-56); Albumin 4.2 g/dL (3.9-5); BUN/Creatinine Ratio 20; Blood Urea Nitrogen 16 mg/dL (7-17); Calcium 8.9 mg/dL (8.4-10.2); Hemolysis Index 83
[2021-09-13 13:14] LABS: Erythrocyte Sedimentation Rate 1 mm/Hr (0-20)
[2021-09-13 13:39] LABS: Total Cells Counted 100
[2021-09-13 13:40] LABS: Anisocytosis 1+; Hypochromasia 2+; Large Platelets Few; Platelet Estimate Consistent w Auto
[2021-09-13 14:33] VITALS: BP 151/70
--- NOTE | 2021-09-14 13:25 | Electrocardiograph Report ---
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
== END 2021-09-13 14:33 | disposition home or self-care (01) ==
LOC: ED 09:36
DX: R51.9 Headache, unspecified (principal); D69.6 Thrombocytopenia, unspecified; D72.819 Decreased white blood cell count, unspecified; I10 Essential (primary) hypertension
CPT/HCPCS: 36415; 80053; 84484; 85007; 85025; 85652; 93005; 96361; 96374; 96375; 99283; J1200; J2765; J7030; Q0162

== ENCOUNTER 2021-11-07 12:54 | Emergency (ER) | payer SELFPAY ==
[2021-11-07] MEDS ORDERED: levETIRAcetam 1000 MG/NS 0.75% 1,000 MG/100 ML BAG IV ONE (13:39)
[2021-11-07] MEDS ORDERED: MORPHINE 4 MG/1 ML INJ IV ONE ×2 (13:39→15:37)
[2021-11-07] MEDS ORDERED: ONDANSETRON 4 MG/2 ML INJ IV ONE (13:39)
[2021-11-07 14:19] LABS: Basophils % (Auto) 0.5 % (0.0-1.8); Eosinophils # (Auto) 0.1 K/mm3 (0.0-0.4); Eosinophils % (Auto) 1.7 % (0.0-4.3); Hematocrit 42.6 % (30.3-42.9); Hemoglobin 13.4 gm/dl (10.1-14.3); Lymphocytes # (Auto) 0.9 K/mm3 (1.2-5.4); Lymphocytes % (Auto) 14.9 % (13.4-35.0); Mean Corpuscular HGB Conc 31 % (30-34); Monocytes # (Auto) 0.3 K/mm3 (0.0-0.8); Monocytes % (Auto) 5.9 % (0.0-7.3); Red Blood Count 6.37 M/mm3 (3.65-5.03); Red Cell Distribution Width 17.9 % (13.2-15.2)
[2021-11-07 14:24] LABS: BUN/Creatinine Ratio 19; Blood Urea Nitrogen 17 mg/dL (7-17); Calcium 8.7 mg/dL (8.4-10.2); Hemolysis Index 48
[2021-11-07 14:26] LABS: Mean Corpuscular Volume 67 fl (79-97)
[2021-11-07 14:27] LABS: Platelet Count 131 K/mm3 (140-440)
[2021-11-07] MEDS ORDERED: KETOROLAC 30 MG/1 ML INJ IV ONE (17:19)
[2021-11-07 18:35] VITALS: BP 141/87
== END 2021-11-07 19:00 | disposition home or self-care (01) ==
LOC: ED 12:54
DX: G40.509 Epileptic seizures related to external causes, not intractable, without status epilepticus (principal); S01.552A Open bite of oral cavity, initial encounter; I10 Essential (primary) hypertension; R51.9 Headache, unspecified; Z91.14 Patient's other noncompliance with medication regimen
CPT/HCPCS: 36415; 70450; 80048; 83735; 85025; 93005; 93010; 96374; 96375; 96376; 99284; J1885; J1953; J2270; J2405; J3490

== ENCOUNTER 2021-12-25 17:16 | Emergency (ER) | payer BC ==
[2021-12-25 18:24] VITALS: BP 228/80
[2021-12-25] MEDS ORDERED: MORPHINE 4 MG/1 ML INJ IV ONE (21:08)
[2021-12-25] MEDS ORDERED: SODIUM CHLORIDE 0.9% 1000 ML 1,000 ML IV ONE (21:08)
[2021-12-25] MEDS ORDERED: ONDANSETRON 4 MG/2 ML INJ IV ONE (21:08)
--- NOTE | 2021-12-25 21:09 | Event Note ---
ED Screening Note ED Screening Note: Patient presents for right upper quadrant abdominal pain that began 2 weeks ago She states that her pain is increasing and she has associated nausea She states her pain is worse with eating She denies any vomiting, diarrhea, urinary symptoms Past medical history of seizures and hypertension No allergies to medications This initial assessment/diagnostic orders/clinical plan/treatment(s) is/are subject to change based on patients health status, clinical progression and re- assessment by fellow clinical providers in the ED. Further treatment and workup at subsequent clinical providers discretion. Patient/guardian urged not to elope from the ED as their condition may be serious if not clinically assessed and managed. Initial orders include: Labs, urine, meds, ultrasound
[2021-12-25] MEDS ORDERED: FAMOTIDINE 20 MG/2 ML INJ IV ONE (21:35)
[2021-12-25 22:14] LABS: Bacteria,Urine 1+ /HPF (Negative); Bilirubin,Urine NEG (Negative); Blood,Urine NEG (Negative); Color,Urine Yellow (Yellow); Mucus,Urine FEW /HPF; Urobilinogen,Urine < 2.0 mg/dL (<2.0)
[2021-12-25 22:23] LABS: Alanine Aminotransferase 15 units/L (7-56); Albumin 4.4 g/dL (3.9-5); Blood Urea Nitrogen 16 mg/dL (7-17); Calcium 9.6 mg/dL (8.4-10.2); Hemolysis Index 16
[2021-12-25 22:24] LABS: Basophils % (Auto) 0.7 % (0.0-1.8); Eosinophils # (Auto) 0.4 K/mm3 (0.0-0.4); Hematocrit 43.6 % (30.3-42.9); Hemoglobin 13.9 gm/dl (10.1-14.3); Lymphocytes # (Auto) 1.4 K/mm3 (1.2-5.4); Lymphocytes % (Auto) 21.6 % (13.4-35.0); Mean Corpuscular HGB Conc 32 % (30-34); Monocytes # (Auto) 0.5 K/mm3 (0.0-0.8); Monocytes % (Auto) 7.5 % (0.0-7.3); Red Blood Count 6.56 M/mm3 (3.65-5.03); Red Cell Distribution Width 17.4 % (13.2-15.2)
[2021-12-25 22:34] LABS: BUN/Creatinine Ratio 23
--- NOTE | 2021-12-25 22:37 | Ultrasound Report ---
LIMITED RUQ ABDOMINAL ULTRASOUND INDICATION: RUQ abd pain. COMPARISON: No relevant prior imaging study available. FINDINGS: Pancreas: Visualized portions show no significant abnormality. Abdominal Aorta: No significant abnormality. IVC: No significant abnormality. Liver: The liver measures 19 cm in length. Diffusely increased hepatic echogenicity which typically i ndicates hepatic steatosis.. Normal hepatopedal blood flow in the main portal vein. Gallbladder: No significant abnormality. Bile ducts: No significant abnormality. Common bile duct measures 3 mm. Right kidney: No significant abnormality visualized.. Free fluid: None. Additional Findings: None. IMPRESSION: 1. Hepatomegaly with findings suggesting hepatic steatosis. Signer Name: Clayton Burgess MD Signed: 12/25/2021 10:33 PM Workstation Name: [id number]
[2021-12-25 22:54] LABS: Mean Corpuscular Volume 67 fl (79-97); Platelet Count 154 K/mm3 (140-440)
--- NOTE | 2021-12-26 01:40 | Emergency Department Report ---
ED Abdominal Pain HPI - General Chief Complaint: Abdominal Pain Stated Complaint: PAIN RT SIDE Source: patient Mode of arrival: Ambulatory Limitations: No Limitations - History of Present Illness Initial Comments: Patient is a 51-year-old -Filipino female with a history of chronic seizures, hypertension and COPD who presents to the ED with complaint of acute onset persistent right upper quadrant pain that radiates to the epigastric area with intractable nausea and vomiting intermittently for the last 2 months. Patient states that the pain is worsened by each episode of food intake and that in the last 4 days she has hardly eaten anything because of worsening pain and nausea and vomiting. Patient states that she had an outpatient ultrasound performed as ordered by her primary care physician but that she has not been contacted by her primary care physician in the last 1 month regarding this test. Patient denies chest pain, shortness of breath, dizziness, syncope, diarrhea, dysuria, cough, sore throat, headache, hematuria, fever and chills. MD Complaint: abdominal pain (Epigastric pain radiating to the right lower quadrant), other (Nausea and vomiting) -: Gradual, month(s) (2) Location: RUQ, epigastric Radiation: RUQ, epigastric Migration to: no migration Severity scale (0 -10): 8 Quality: cramping, aching, sharp Consistency: constant Improves With: nothing Worsens With: eating, vomiting Associated Symptoms: nausea, vomiting. denies: denies other symptoms, diarrhea, fever, chills, constipation, dysuria, hematemesis, hematochezia, melena, hematuria - Related Data Home Medications Medication Instructions Recorded Confirmed Last Taken amLODIPine 20 mg PO DAILY 12/26/18 02/28/20 02/17/20 Previous Rx's Medication Instructions Recorded Last Taken Type Esomeprazole Magnesium [NexIUM] 40 mg PO QDAY #30 capsule. 10/25/19 02/16/20 Rx Acetaminophen [Acetaminophen 8 650 mg PO Q8H PRN #12 tablet.er 03/17/20 Unknown Rx Hour] levETIRAcetam [Keppra TAB] 750 mg PO BID #60 tablet 06/28/20 Unknown Rx Montelukast [Singulair] 10 mg PO QPM #14 tablet 07/01/20 Unknown Rx Cyclobenzaprine HCl [Flexeril 5 MG 5 mg PO TID #14 tab 11/07/20 Unknown Rx TAB] Acetaminophen [Non-Aspirin Extra 500 mg PO Q6HR PRN #30 tablet 11/17/20 Unknown Rx Strength] Losartan [Cozaar] 1 tab PO DAILY #30 11/17/20 Unknown Rx Metoprolol [Lopressor TAB] 50 mg PO DAILY #30 11/17/20 Unknown Rx Morphine Sulfate [Morphine Sulfate 7.5 mg PO Q6HR PRN #10 tablet 11/17/20 Unknown Rx IR] amLODIPine 10 mg PO DAILY #30 tablet 11/17/20 Unknown Rx ALBUTEROL NEB's [Proventil 0.083% 2.5 mg IH QID PRN #30 neb 06/29/21 Unknown Rx NEBS] Albuterol Mdi (or & Nicu Only) 2 puff IH Q4-6H PRN #1 inha 06/29/21 Unknown Rx [ProAir HFA Inhaler] Azithromycin [Zithromax Z-SHUKRI] 250 mg PO DAILY #1 pack 06/29/21 Unknown Rx Benzonatate [Tessalon Perles] 100 mg PO Q8HR PRN #30 capsule 06/29/21 Unknown Rx Butalb/Acetamin/Caff 50-325-40 1 each PO Q4H PRN #12 tablet 09/13/21 Unknown Rx [Fioricet 50-325-40] Diltiazem HCl [Cardizem Cd] 360 mg PO DAILY #30 tab 11/07/21 Unknown Rx Divalproex ER [Depakote ER] 1,000 mg PO QHS #30 tablet 11/07/21 Unknown Rx HYDROcodone/APAP 5-325 [[place] 1 each PO Q6HR PRN #10 tablet 11/07/21 Unknown Rx 5/325] Ibuprofen [Motrin] 800 mg PO Q8HR PRN #20 tablet 11/07/21 Unknown Rx Metoprolol [Lopressor TAB] 50 mg PO DAILY #30 tab 11/07/21 Unknown Rx cloNIDine [Catapres] 0.2 mg PO DAILY #30 tab 11/07/21 Unknown Rx Dicyclomine [Bentyl] 20 mg PO Q6H #24 tablet 12/26/21 Unknown Rx Famotidine [Pepcid] 20 mg PO BID #60 tablet 12/26/21 Unknown Rx Ondansetron [Zofran Odt] 4 mg PO Q8HR PRN #20 tab.rapdis 12/26/21 Unknown Rx Allergies Allergy/AdvReac Type Severity Reaction Status Date / Time No Known Allergies Allergy Verified 02/20/21 15:01 ED Review of Systems ROS: Stated complaint: PAIN RT SIDE Other details as noted in HPI Constitutional: denies: chills, fever Eyes: denies: eye pain, eye discharge, vision change ENT: denies: ear pain, throat pain Respiratory: denies: cough, shortness of breath, wheezing Cardiovascular: denies: chest pain, palpitations Endocrine: no symptoms reported Gastrointestinal: abdominal pain, nausea, vomiting. denies: diarrhea Genitourinary: denies: urgency, dysuria, discharge Musculoskeletal: denies: back pain, joint swelling, arthralgia Skin: denies: rash, lesions Neurological: denies: headache, weakness, paresthesias Psychiatric: denies: anxiety, depression Hematological/Lymphatic: denies: easy bleeding, easy bruising ED Past Medical Hx - Past Medical History Hx Hypertension: Yes Hx Seizures: Yes Hx COPD: Yes Additional medical history: Seizure - Surgical History Additional Surgical History: right ovary removal (2014) - Social History Smoking Status: Never Smoker Substance Use Type: None - Medications Home Medications: Home Medications Medication Instructions Recorded Confirmed Last Taken Type amLODIPine 20 mg PO DAILY 12/26/18 02/28/20 02/17/20 History Esomeprazole Magnesium [NexIUM] 40 mg PO QDAY #30 capsule. 10/25/19 02/28/20 02/16/20 Rx Acetaminophen [Acetaminophen 8 650 mg PO Q8H PRN #12 tablet.er 03/17/20 Unknown Rx Hour] levETIRAcetam [Keppra TAB] 750 mg PO BID #60 tablet 06/28/20 Unknown Rx Montelukast [Singulair] 10 mg PO QPM #14 tablet 07/01/20 Unknown Rx Cyclobenzaprine HCl [Flexeril 5 MG 5 mg PO TID #14 tab 11/07/20 Unknown Rx TAB] Acetaminophen [Non-Aspirin Extra 500 mg PO Q6HR PRN #30 tablet 11/17/20 Unknown Rx Strength] Losartan [Cozaar] 1 tab PO DAILY #30 11/17/20 Unknown Rx Metoprolol [Lopressor TAB] 50 mg PO DAILY #30 11/17/20 Unknown Rx Morphine Sulfate [Morphine Sulfate 7.5 mg PO Q6HR PRN #10 tablet 11/17/20 U nknown Rx IR] amLODIPine 10 mg PO DAILY #30 tablet 11/17/20 Unknown Rx ALBUTEROL NEB's [Proventil 0.083% 2.5 mg IH QID PRN #30 neb 06/29/21 Unknown Rx NEBS] Albuterol Mdi (or & Nicu Only) 2 puff IH Q4-6H PRN #1 inha 06/29/21 Unknown Rx [ProAir HFA Inhaler] Azithromycin [Zithromax Z-SHUKRI] 250 mg PO DAILY #1 pack 06/29/21 Unknown Rx Benzonatate [Tessalon Perles] 100 mg PO Q8HR PRN #30 capsule 06/29/21 Unknown Rx Butalb/Acetamin/Caff 50-325-40 1 each PO Q4H PRN #12 tablet 09/13/21 Unknown Rx [Fioricet 50-325-40] Diltiazem HCl [Cardizem Cd] 360 mg PO DAILY #30 tab 11/07/21 Unknown Rx Divalproex ER [Depakote ER] 1,000 mg PO QHS #30 tablet 11/07/21 Unknown Rx HYDROcodone/APAP 5-325 [[place] 1 each PO Q6HR PRN #10 tablet 11/07/21 Unknown Rx 5/325] Ibuprofen [Motrin] 800 mg PO Q8HR PRN #20 tablet 11/07/21 Unknown Rx Metoprolol [Lopressor TAB] 50 mg PO DAILY #30 tab 11/07/21 Unknown Rx cloNIDine [Catapres] 0.2 mg PO DAILY #30 tab 11/07/21 Unknown Rx Dicyclomine [Bentyl] 20 mg PO Q6H #24 tablet 12/26/21 Unknown Rx Famotidine [Pepcid] 20 mg PO BID #60 tablet 12/26/21 Unknown Rx Ondansetron [Zofran Odt] 4 mg PO Q8HR PRN #20 tab.rapdis 12/26/21 Unknown Rx ED Physical Exam - General Limitations: No Limitations General appearance: alert, in no apparent distress - Head Head exam: Present: atraumatic, normocephalic, normal inspection - Eye Eye exam: Present: normal appearance, PERRL, EOMI Pupils: Present: normal accommodation - ENT ENT exam: Present: normal exam, normal orophraynx, mucous membranes moist, TM's normal bilaterally, normal external ear exam - Neck Neck exam: Present: normal inspection, full ROM. Absent: tenderness - Respiratory Respiratory exam: Present: normal lung sounds bilaterally. Absent: respiratory distress, wheezes, rales, stridor, chest wall tenderness, accessory muscle use, prolonged expiratory, other - Cardiovascular Cardiovascular Exam: Present: regular rate, normal rhythm, normal heart sounds. Absent: systolic murmur, diastolic murmur, rubs, gallop - GI/Abdominal GI/Abdominal exam: Present: soft, tenderness (Palpable right upper quadrant and epigastric tenderness), normal bowel sounds. Absent: guarding, rebound, hyperactive bowel sounds, hypoactive bowel sounds, organomegaly, mass - Extremities Exam Extremities exam: Present: normal inspection, full ROM, normal capillary refill. Absent: tenderness - Back Exam Back exam: Present: normal inspection, full ROM. Absent: tenderness, CVA tenderness (R), CVA tenderness (L), muscle spasm, paraspinal tenderness, vertebral tenderness - Neurological Exam Neurological exam: Present: alert, oriented X3, CN II-XII intact, normal gait, reflexes normal - Psychiatric Psychiatric exam: Present: normal affect, normal mood - Skin Skin exam: Present: warm, dry, intact, normal color. Absent: rash ED Course Vital Signs 12/25/21 12/25/21 18:23 18:24 Temperature 98.6 F Pulse Rate 61 Respiratory 16 Rate Blood Pressure 228/80 O2 Sat by Pulse 99 Oximetry ED Medical Decision Making - Lab Data Result diagrams: 12/25/21 21:26 12/25/21 21:26 - Radiology Data Radiology results: report reviewed, image reviewed [facility] [address] [place] [address] Ultrasound Report Signed Patient: JOJO DE SANTIAGO MR#: [id number] : 1970 Acct:[id number] Age/Sex: 51 / F ADM Date: 12/25/21 Loc: ED Attending Dr: Ordering Physician: OH BARKSDALE Date of Service: 12/25/21 Procedure(s): US abdomen limited Accession Number(s): [id number] cc: OH BARKSDALE LIMITED RUQ ABDOMINAL ULTRASOUND INDICATION: RUQ abd pain. COMPARISON: No relevant prior imaging study available. FINDINGS: Pancreas: Visualized portions show no significant abnormality. Abdominal Aorta: No significant abnormality. IVC: No significant abnormality. Liver: The liver measures 19 cm in length. Diffusely increased hepatic echogenicity which typically indicates hepatic steatosis.. Normal hepatopedal blood flow in the main portal vein. Gallbladder: No significant abnormality. Bile ducts: No significant abnormality. Common bile duct measures 3 mm. Right kidney: No significant abnormality visualized.. Free fluid: None. Additional Findings: None. IMPRESSION: 1. Hepatomegaly with findings suggesting hepatic steatosis. Signer Name: Clayton Burgess MD Signed: 12/25/2021 10:33 PM Workstation Name: [id number] Transcribed By: MARITZA Dictated By: Clayton Burgess MD Electronically Authenticated By: Clayton Burgess MD Signed Date/Time: 12/25/212232 DD/ 31 TD/TT: - Medical Decision Making This is a 51-year-old -Filipino female with a history of chronic seizures, hypertension and COPD who presents to the ED with complaint of acute onset persistent right upper quadrant pain that radiates to the epigastric area with intractable nausea and vomiting intermittently for the last 2 months. Patient states that the pain is worsened by each episode of food intake and that in the last 4 days she has hardly eaten anything because of worsening pain and nausea and vomiting. Patient states that she had an outpatient ultrasound performed as ordered by her primary care physician but that she has not been contacted by her primary care physician in the last 1 month regarding this test. In the ED, patient is alert and oriented x3 and is not in any distress. Lab test results were reviewed and are all nonactionable except for mild urinary tract infection. Gallbladder ultrasound showed hepatomegaly with findings suggesting hepatic steatosis. Patient was treated for pain in the ED and also given antiemetics and antacids. Patient also received normal saline 1 L IV bolus x1. On reevaluation, patient's pain is well controlled medication. Patient however left the ED without signing paperwork AGAINST MEDICAL ADVICE. - Differential Diagnosis Cholelithiasis; cholecystitis; gastroenteritis; GERD; gastritis; Critical care attestation.: If time is entered above; I have spent that time in minutes in the direct care of this critically ill patient, excluding procedure time. ED Disposition Clinical Impression: Acute abdominal pain in right upper quadrant, Nausea and vomiting in adult zackary ent, Acute urinary tract infection GERD (gastroesophageal reflux disease) Qualifiers: Esophagitis presence: esophagitis presence not specified Qualified Code(s): K21.9 - Gastro-esophageal reflux disease without esophagitis Disposition: 07 LEFT AGAINST MEDICAL ADVICE Is pt being admited?: No Does the pt Need Aspirin: No Condition: Undetermined Instructions: Abdominal Pain (ED), Abdominal Pain, Adult, [id number], Nausea and Vomiting, Adult, [id number], Urinary Tract Infection, Adult, [id number]-[id number], Gastroesophageal Reflux Disease, Adult, [id number]-[id number] Additional Instructions: All lab test results were reviewed and are all nonactionable. Gallbladder ultrasound showed hepatomegaly with findings suggesting hepatic steatosis. Therefore maintain a clear liquid diet for 12 to 24 hours, drink plenty of fluids, take medication as needed for pain and for nausea and vomiting. Follow- up with your primary care physician in 7 to 10 days for reevaluation. Return to the ED immediately if symptoms get worse. Prescriptions: Dicyclomine [Bentyl] 20 mg PO Q6H #24 tablet Famotidine [Pepcid] 20 mg PO BID #60 tablet Ondansetron [Zofran Odt] 4 mg PO Q8HR PRN #20 tab.rapdis PRN Reason: Nausea Referrals: BRIGHT CEE MD [Primary Care Provider] - 3-5 Days Time of Disposition: 01:47 Print Language: BELARUSIAN
--- NOTE | 2021-12-26 11:53 | Electrocardiograph Report ---
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
== END 2021-12-26 01:50 | disposition left against medical advice (07) ==
LOC: ED 17:16
DX: N39.0 Urinary tract infection, site not specified (principal); K21.9 Gastro-esophageal reflux disease without esophagitis; R10.11 Right upper quadrant pain; R11.2 Nausea with vomiting, unspecified; I10 Essential (primary) hypertension; R56.9 Unspecified convulsions; J44.9 Chronic obstructive pulmonary disease, unspecified; Z79.899 Other long term (current) drug therapy
CPT/HCPCS: 36415; 76705; 80053; 81001; 83690; 84484; 84703; 85025; 87086; 93005; 96361; 96374; 96375; 99284; J2270; J2405; J3490; J7030; Q0162

== ENCOUNTER 2022-01-07 17:22 | Emergency (ER) | payer BC ==
[2022-01-07 17:46] VITALS: BP 197/94
[2022-01-07 22:08] LABS: Bacteria,Urine 1+ /HPF (Negative); Bilirubin,Urine NEG (Negative); Blood,Urine NEG (Negative); Color,Urine Yellow (Yellow); Mucus,Urine 2+ /HPF; Protein,Urine <15 mg/dL mg/dL (Negative)
== END 2022-01-07 20:08 | disposition left against medical advice (07) ==
LOC: ED 17:22
DX: R10.9 Unspecified abdominal pain (principal); Z53.21 Procedure and treatment not carried out due to patient leaving prior to being seen by health care provider
CPT/HCPCS: 81001; 87086

== ENCOUNTER 2022-02-01 03:08 | Emergency (ER) | payer BC ==
--- NOTE | 2022-02-01 04:21 | XRay Report ---
RIGHT WRIST 3 VIEW(S) INDICATION / CLINICAL INFORMATION: possible injury COMPARISON: None available. FINDINGS: BONES / JOINT(S): No acute fracture or subluxation. No significant arthritis. SOFT TISSUES: No significant abnormality. ADDITIONAL FINDINGS: None. Signer Name: Mil James DO Signed: 02/01/2022 4:17 AM Workstation Name: [id number]
[2022-02-01] MEDS ORDERED: HYDROcodone/ACETAMINOPHEN 10-325MG TAB PO ONE (09:37)
--- NOTE | 2022-02-01 10:07 | Emergency Department Report ---
ED Upper Extremity Inj HPI - General Chief Complaint: Extremity Injury, Upper Stated Complaint: PAIN INRT WRISTHAND Time Seen by Provider: 02/01/22 09:01 Source: patient Mode of arrival: Ambulatory Limitations: No Limitations - History of Present Illness Initial Comments: This is a 51-year-old female nontoxic, well nourished in appearance, no acute signs of distress presents to the ED with c/o of right wrist pain several days. Patient denies any injuries or trauma. Stated symptoms started after heavy lifting at work. Patient denies any numbness, tingling, fever, chills, nausea, vomiting, chest pain, shortness of breath, headache, stiff neck. Patient denies any joint swelling or joint redness. Patient denies decreased range of motion but stated has some pain during ROM. Patient denies any allergies or significant past medical history. MD Complaint: Injury to:: right, wrist -: days(s) Other Extremity Injury: Wrist: Right Severity scale (0 -10): 8 Improves With: immobilization Worsens With: movement of extremity Associated Symptoms: denies other symptoms. denies: weakness, numbness, neck pain, suspects foreign body, nausea/vomiting, heard/felt popping sensat - Related Data Previous Rx's Medication Instructions Recorded Last Taken Type levETIRAcetam [Keppra TAB] 750 mg PO BID #60 tablet 06/28/20 1 Day Ago Rx ~01/31/22 Metoprolol [Lopressor TAB] 50 mg PO DAILY #30 tab 11/07/21 1 Day Ago Rx ~01/31/22 Naproxen 500 mg PO Q8H PRN #12 tab 02/01/22 Unknown Rx Allergies Allergy/AdvReac Type Severity Reaction Status Date / Time No Known Allergies Allergy Verified 02/01/22 09:16 ED Review of Systems ROS: Stated complaint: PAIN INRT WRISTHAND Other details as noted in HPI Comment: All other systems reviewed and negative Constitutional: denies: chills, fever Eyes: denies: eye pain, eye discharge, vision change ENT: denies: ear pain, throat pain Respiratory: denies: cough, shortness of breath, wheezing Cardiovascular: denies: chest pain, palpitations Endocrine: no symptoms reported Gastrointestinal: denies: abdominal pain, nausea, diarrhea Genitourinary: denies: urgency, dysuria, discharge Musculoskeletal: denies: back pain, joint swelling, arthralgia Skin: denies: rash, lesions Neurological: denies: headache, weakness, paresthesias Psychiatric: denies: anxiety, depression Hematological/Lymphatic: denies: easy bleeding, easy bruising ED Past Medical Hx - Past Medical History Hx Hypertension: Yes Hx Seizures: Yes Hx COPD: Yes Additional medical history: Seizure - Surgical History Additional Surgical History: right ovary removal (2014) - Social History Smoking Status: Never Smoker Substance Use Type: None - Medications Home Medications: Home Medications Medication Instructions Recorded Confirmed Last Taken Type levETIRAcetam [Keppra TAB] 750 mg PO BID #60 tablet 06/28/20 02/01/22 1 Day Ago Rx ~01/31/22 Metoprolol [Lopressor TAB] 50 mg PO DAILY #30 tab 11/07/21 02/01/22 1 Day Ago Rx ~01/31/22 Naproxen 500 mg PO Q8H PRN #12 tab 02/01/22 Unknown Rx ED Physical Exam - General Limitations: No Limitations General appearance: alert, in no apparent distress - Head Head exam: Present: atraumatic, normocephalic - Eye Eye exam: Present: normal appearance - Neck Neck exam: Present: normal inspection, full ROM. Absent: lymphadenopathy - Respiratory Respiratory exam: Absent: respiratory distress - Cardiovascular Cardiovascular Exam: Present: regular rate - Extremities Exam Extremities exam: Present: normal inspection, full ROM, tenderness, normal capillary refill. Absent: joint swelling - Expanded Upper Extremity Exam Right General: Present: normal inspection Shoulder Exam: Present: normal inspection, full ROM. Absent: tenderness, swelling Upper Arm exam: Present: normal inspection, full ROM. Absent: tenderness, swelling Elbow exam: Present: normal inspection, full ROM. Absent: tenderness, swelling Forearm Wrist exam: Present: normal inspection, full ROM, tenderness. Absent: swelling, abrasion, laceration, ecchymosis, deformity, crepidus, dislocation, erythema, tenderness over anatomical snuff box, pain with axial thumb loading Hand Wrist exam: Present: normal inspection, full ROM. Absent: tenderness, swe lling, abrasion, laceration, ecchymosis, deformity, crepidus, dislocation, erythema, amputation, nail avulsion, subungual hematoma Hand L/R Front: 1 - Positive: other (Pain here) Neuro motor exam: Present: wrist extension intact, thumb opposition intact, thum b IP flexion intact, thumb adduction intact, fingers 2-5 abduction intact Vascular: Present: normal capillary refill. Absent: vascular compromise (Neurovascular within normal limits) - Back Exam Back exam: Present: full ROM - Neurological Exam Neurological exam: Present: alert, oriented X3, normal gait - Psychiatric Psychiatric exam: Present: normal affect, normal mood - Skin Skin exam: Present: warm, dry, intact, normal color. Absent: rash ED Course Vital Signs 02/01/22 02/01/22 03:44 09:48 Temperature 98.5 F Pulse Rate 57 L Respiratory 16 18 Rate Blood Pressure 217/94 [Right] O2 Sat by Pulse 97 Oximetry - Reevaluation(s) Reevaluation #1: 02/01/22 10:08 Patient is speaking in full sentences with no signs of distress noted. ED Medical Decision Making - Radiology Data [facility] [address] [place] [address] XRay Report Signed Patient: JOJO DE SANTIAGO MR#: [id number] : 1970 Acct:[id number] Age/Sex: 51 / F ADM Date: 02/01/22 Loc: ED Attending Dr: Ordering Physician: NEELIMA WOODALL MD Date of Service: 02/01/22 Procedure(s): XR wrist 3+V RT Accession Number(s): [id number] cc: ED MD JOSE C Fluoro Time In Minutes: RIGHT WRIST 3 VIEW(S) INDICATION / CLINICAL INFORMATION: possible injury COMPARISON: None available. FINDINGS: BONES / JOINT(S): No acute fracture or subluxation. No significant arthritis. SOFT TISSUES: No significant abnormality. ADDITIONAL FINDINGS: None. Signer Name: Mil Melton DO Signed: 02/01/2022 4:17 AM Workstation Name: [id number] Transcribed By: JOHN Dictated By: MIL MELTON DO Electronically Authenticated By: MIL MELTON DO Signed Date/Time: 02/01/22 0417 DD/ 0416 TD/TT: - Medical Decision Making This is a 51-year-old female that presents with right wrist injury. Patient is stable and was examined by me. I referred patient to an orthopedic doctor for further evaluation for possible MRI. X-ray has been obtained and dictated by the radiologist. Patient is notified of the x-ray report with noted by the patient. Patient does have normal ROM with some tenderness and no joint swell ing. No ecchymosis. no joint redness or swelling. Not warm to touch. No signs of cellulites present. Patient received a wrist immobilizer. Patient was instructed to RICE therapy. Patient received Argenta for pain which stated symptoms improved and subsided. Patient stated family member will drive patient home after discharge due to possible drowsiness.. Patient is discharged with naproxen. At time of discharge, the patient does not seem toxic or ill in appearance. No acute signs of distress noted. Patient agrees to discharge treatment plan of care. No further questions noted by the patient. Critical care attestation.: If time is entered above; I have spent that time in minutes in the direct care of this critically ill patient, excluding procedure time. ED Disposition Clinical Impression: Right wrist injury Qualifiers: Encounter type: initial encounter Qualified Code(s): S69.91XA - Unspecified injury of right wrist, hand and finger(s), initial encounter Disposition: 01 HOME / SELF CARE / HOMELESS Is pt being admited?: No Does the pt Need Aspirin: No Condition: Stable Instructions: RICE Therapy for Routine Care of Injuries, [id number] Additional Instructions: Follow-up with a orthopedic doctor in 3-5 days or if symptoms worsen and continue return to emergency room as soon as possible. No physical activity that extremity until cleared by orthopedic doctor Prescriptions: Naproxen 500 mg PO Q8H PRN #12 tab PRN Reason: Pain , Severe (7-10) Referrals: PRIMARY CARE, [Referring] - 3-5 Days ROMAN CHAVARRIA MD [Staff Physician] - 3-5 Days Forms: Work/School Release Form(ED) Time of Disposition: 10:12
[2022-02-01 13:11] VITALS: BP 150/62
== END 2022-02-01 13:11 | disposition home or self-care (01) ==
LOC: ED 03:08
DX: S69.91XA Unspecified injury of right wrist, hand and finger(s), initial encounter (principal); X58.XXXA Exposure to other specified factors, initial encounter; I10 Essential (primary) hypertension; Y93.89 Activity, other specified; Y92.89 Other specified places as the place of occurrence of the external cause; Y99.8 Other external cause status
CPT/HCPCS: 99283

== ENCOUNTER 2022-04-13 07:07 | Emergency (ER) | payer BC ==
[2022-04-13 07:41] VITALS: BP 178/91
[2022-04-13] MEDS ORDERED: ONDANSETRON 4 MG ODT TAB PO ONE (09:16)
[2022-04-13] MEDS ORDERED: METOCLOPRAMIDE 10 MG/2 ML INJ IM ONE (09:16)
--- NOTE | 2022-04-13 09:18 | Emergency Department Report ---
ED Headache HPI - General Chief Complaint: Headache Stated Complaint: SEVERE HEADACHE Time Seen by Provider: 04/13/22 09:08 Source: patient Exam Limitations: no limitations - History of Present Illness Initial Comments: Pt presents with HELLER to back of the head, hx of HTN, BP 201/86 in triage, states only missed this mornings dose of antihypertensive Quality: moderate Head Injury Location: frontal Recent Head Trauma: no recent headache/trauma Associated Symptoms: denies: denies symptoms, confusion, fatigue, facial pain Allergies/Adverse Reactions: Allergies No Known Allergies Allergy (Verified 02/01/22 09:16) Home Medications: Ambulatory Orders levETIRAcetam [Keppra TAB] 750 mg PO BID #60 tablet 06/28/20 Metoprolol [Lopressor TAB] 50 mg PO DAILY #30 tab 11/07/21 Naproxen 500 mg PO Q8H PRN #12 tab 02/01/22 ED Review of Systems ROS: Stated complaint: SEVERE HEADACHE Other details as noted in HPI Constitutional: denies: chills, fever Eyes: denies: eye pain, eye discharge, vision change ENT: denies: ear pain, throat pain Respiratory: denies: cough, shortness of breath, wheezing Cardiovascular: denies: chest pain, palpitations Endocrine: no symptoms reported Gastrointestinal: denies: abdominal pain, nausea, diarrhea Genitourinary: denies: urgency, dysuria, discharge Musculoskeletal: denies: back pain, joint swelling, arthralgia Skin: denies: rash, lesions Neurological: denies: headache, weakness, paresthesias Psychiatric: denies: anxiety, depression Hematological/Lymphatic: denies: easy bleeding, easy bruising ED Past Medical Hx - Past Medical History Hx Hypertension: Yes Hx Seizures: Yes Hx COPD: Yes Additional medical history: Seizure - Surgical History Additional Surgical History: right ovary removal (2014) - Social History Smoking Status: Never Smoker Substance Use Type: None - Medications Home Medications: Home Medications Medication Instructions Recorded Confirmed Last Taken Type levETIRAcetam [Keppra TAB] 750 mg PO BID #60 tablet 06/28/20 02/01/22 1 Day Ago Rx ~01/31/22 Metoprolol [Lopressor TAB] 50 mg PO DAILY #30 tab 11/07/21 02/01/22 1 Day Ago Rx ~01/31/22 Naproxen 500 mg PO Q8H PRN #12 tab 02/01/22 Unknown Rx ED Physical Exam - General Limitations: No Limitations General appearance: alert, in no apparent distress - Head Head exam: Present: atraumatic, normocephalic - Eye Eye exam: Present: normal appearance - ENT ENT exam: Present: mucous membranes moist - Neck Neck exam: Present: normal inspection - Respiratory Respiratory exam: Present: normal lung sounds bilaterally. Absent: respiratory distress - Cardiovascular Cardiovascular Exam: Present: regular rate, normal rhythm. Absent: systolic murmur, diastolic murmur, rubs, gallop - GI/Abdominal GI/Abdominal exam: Present: soft, normal bowel sounds - Extremities Exam Extremities exam: Present: normal inspection - Back Exam Back exam: Present: normal inspection - Neurological Exam Neurological exam: Present: alert, oriented X3 - Psychiatric Psychiatric exam: Present: normal affect, normal mood - Skin Skin exam: Present: warm, dry, intact, normal color. Absent: rash ED Course Vital Signs 04/13/22 04/13/22 04/13/22 07:22 07:25 08:55 Temperature 98.6 F Pulse Rate 71 Respiratory 18 18 Rate Blood Pressure 201/86 178/91 [Left] O2 Sat by Pulse 96 98 Oximetry Critical care attestation.: If time is entered above; I have spent that time in minutes in the direct care of this critically ill patient, excluding procedure time. ED Disposition Clinical Impression: Headache Disposition: 01 HOME / SELF CARE / HOMELESS Is pt being admited?: No Does the pt Need Aspirin: No Condition: Stable Referrals: [facility]A LOO [Other] - 3-5 Days
== END 2022-04-13 13:38 | disposition home or self-care (01) ==
LOC: ED 07:07
DX: R51.9 Headache, unspecified (principal); I10 Essential (primary) hypertension; R56.9 Unspecified convulsions; J44.1 Chronic obstructive pulmonary disease with (acute) exacerbation
CPT/HCPCS: 96372; 99282; J2765; J3490; Q0162